=== PATIENT | male | born 2000 | race Two or more races ===

== ENCOUNTER 2021-06-19 07:00 | Day surgery (SDC) | payer MEDICAID, OTHER ==
[~2021-06-19 07:00] MED LIST: ACET650S26 GT; ALBU2.5V38 IH; BACL20TA GT; BISA10SU11 RC; BUDE1AMP IH; CHOL100062 GT; CLON0.2T GT; CLON0.3P TD; CLON0.3T GT; CLON1PAT7 TD; DIAZ2TAB GT; ERYT200S16 GT; GABA-532 GT; GLYC0.2V GT; LORA-259 GT; POLY15DR40 EACHEYE; POLY17PO4 GT; PROP10TA10 GT; SIME80TA15 GT; [UNRECOGNIZED DRUG - CODE] GT
[2021-06-19] MEDS ORDERED: FENTANYL PF 100MCG/2ML AMPUL ONE (12:34)
[2021-06-19] MEDS ORDERED: MIDAZOLAM HCL 2 MG/2ML VIAL ONE (12:35)
== END 2021-06-19 18:00 | disposition still patient (30) ==
LOC: DS 07:00
PROVIDERS: ATTEND Surgery
DX: L91.0 Hypertrophic scar (principal); I10 Essential (primary) hypertension; K21.9 Gastro-esophageal reflux disease without esophagitis
CPT/HCPCS: 11442; A4623; A7526; J0690; J2250; J3010; J7030

== ENCOUNTER 2023-04-28 | Inpatient (IN) | payer OTHER ==
[~2023-04-28] VITALS: Ht 134.6 cm; Wt 39.9 kg
[2023-04-29] VITALS (10 sets, daily range): BP systolic 133–139; BP diastolic 80–95; TEMP 98.7–99; O2SAT 96–100
[2023-04-29] MEDS ORDERED: LANOLIN/MIN OIL/PETROLAT,WHT 3.5 GM TUBE EACHEYE SCH (08:11)
[2023-04-29] MEDS ORDERED: TUBERCULIN,PURIF.PROT.DERIV. 5 TU/0.1 ML DISP.SYRIN ID SCH (08:11)
[2023-04-29] MEDS ORDERED: ALBUTEROL FS 2.5 MG/3 ML VIAL.NEB NEB PRN (09:00)
[2023-04-29] MEDS ORDERED: VANCOMYCIN HCL 0.75 GM in IV D5W 250 ML IV SCH ×2 (09:00→13:00)
[2023-04-29] MEDS ORDERED: GUAIFENESIN 300 MG/15 ML UDC GT PRN (09:00)
[2023-04-29] MEDS: MEROPENEM 1 G in IV NS 0.9% 100 ML IV SCH ×2 (09:00→21:00)
[2023-04-29] MEDS ORDERED: DIAZEPAM 2 MG TABLET GT SCH (09:00)
[2023-04-29] MEDS ORDERED: HYDROGEN PEROXIDE 480 ML BOTTLE TP PRN (09:00)
[2023-04-29] MEDS ORDERED: Z GUARD REMEDY 4 OZ OINT TP PRN (09:00)
[2023-04-29] MEDS ORDERED: IPRATROPIUM NEB FS 0.5 MG/2.5 ML AMPUL.NEB NEB PRN (09:00)
[2023-04-29] MEDS ORDERED: GLYCOPYRROLATE 1 MG TABLET GT SCH (09:00)
[2023-04-29] MEDS: HYDROGEN PEROXIDE 480 ML BOTTLE TP SCH (09:44)
[2023-04-29] MEDS: LANOLIN/MIN OIL/PETROLAT,WHT 3.5 GM TUBE EACHEYE SCH (09:51)
[2023-04-29] MEDS: TAMSULOSIN 0.4 MG CAP.SR.24H GT SCH (09:51)
[2023-04-29] MEDS: PROPRANOLOL HCL 10 MG TABLET GT SCH (09:52)
[2023-04-29] MEDS: ARGININE/GLUTAMINE/CALCIUM BMB 1 EACH POWD.PACK GT SCH (09:53)
[2023-04-29] MEDS: ACIDOPHILUS/BULGARICUS 1 EACH TAB.CHEW GT SCH (09:53)
[2023-04-29] MEDS: CLONIDINE 0.3 MG GT SCH (09:53)
[2023-04-29] MEDS: HYDROCODONE/APAP 5/325MG TABLET GT SCH (09:54)
[2023-04-29] MEDS: CHOLECALCIFEROL 1,000 UNIT TABLET (VIT D3) GT SCH (09:54)
[2023-04-29] MEDS: PROSOURCE / PROSTAT (PYXIS) 30 ML UDC GT SCH (09:54)
[2023-04-29] MEDS: MULTIVIT W/MINERALS 1 TAB TABLET GT SCH (09:54)
[2023-04-29] MEDS: ASCORBIC ACID 500 MG TABLET GT SCH (09:54)
[2023-04-29] MEDS: NYSTATIN TOP POWDER 15 GM BOTTLE TP SCH ×2 (09:54→09:55)
[2023-04-29] MEDS: Z GUARD REMEDY 4 OZ OINT TP SCH ×2 (09:55)
[2023-04-29] MEDS: VITS A AND D/WHITE PET/LANOLIN 5 GM PACKET TP SCH (09:55)
[2023-04-29] MEDS: GABAPENTIN GT SCH (12:00)
[2023-04-29] MEDS: GLYCOPYRROLATE 1 MG TABLET GT SCH (12:00)
[2023-04-29] MEDS: BACLOFEN 20 MG GT SCH (12:00)
[2023-04-29] MEDS: DIAZEPAM 2 MG TABLET GT SCH (12:00)
[2023-04-29] MEDS: SIMETHICONE SUSP 40 MG/0.6 ML BOTTLE GT SCH (12:00)
[2023-04-29] MEDS: ALBUTEROL FS 2.5 MG/3 ML VIAL.NEB NEB SCH (12:47)
[2023-04-29] MEDS: IPRATROPIUM NEB FS 0.5 MG/2.5 ML AMPUL.NEB NEB SCH (12:47)
[2023-04-29] MEDS: ERYTHROMYCIN ETHYLSUCCINATE 200 MG/5 ML SUSPENSION GT SCH (13:06)
[2023-04-29] MEDS: BENEFIBER 4 GM 1 EA PACKET GT SCH (13:06)
[2023-04-29] MEDS: VANCOMYCIN HCL 0.75 GM in IV D5W 250 ML IV SCH (13:41)
[2023-04-29] MEDS: VITAL AF 1.2 1,000 ML BOTTLE GT PRN (18:56)
[2023-04-29] MEDS: CLONIDINE 0.2 MG GT SCH (21:20)
[2023-04-29] MEDS: ZINC SULFATE 220 MG CAPSULE GT SCH (21:21)
[2023-04-30] VITALS (14 sets, daily range): BP systolic 133–152; BP diastolic 89–90; TEMP 98.2–98.3; O2SAT 95–99
[2023-04-30 08:18] LABS: CALCIUM, SERUM 9.9 mg/dL (8.5-10.1); CREATININE 0.3 mg/dL (0.6-1.3); POTASSIUM 4.2 mmol/L (3.5-5.1)
[2023-04-30] MEDS: LORAZEPAM 1 MG TABLET GT PRN (10:36)
[2023-05-01] VITALS (15 sets, daily range): BP systolic 141; BP diastolic 92; TEMP 98.6–99.3; O2SAT 93–99
[2023-05-01 08:52] LABS: CALCIUM, SERUM 9.9 mg/dL (8.5-10.1); CREATININE 0.3 mg/dL (0.6-1.3)
[2023-05-01] MEDS: CLOTRIMAZOLE 1% 15 GM TUBE TP SCH (21:11)
[2023-05-02] VITALS (11 sets, daily range): BP systolic 130; BP diastolic 82; TEMP 99; O2SAT 96–99
[2023-05-02 07:32] LABS: CALCIUM, SERUM 9.8 mg/dL (8.5-10.1); CREATININE 0.2 mg/dL (0.6-1.3); POTASSIUM 4.5 mmol/L (3.5-5.1)
[2023-05-03] VITALS (13 sets, daily range): BP systolic 128–139; BP diastolic 72–90; TEMP 98.6–98.8; O2SAT 94–98
[2023-05-03 08:06] LABS: CALCIUM, SERUM 9.2 mg/dL (8.5-10.1); CREATININE 0.3 mg/dL (0.6-1.3); POTASSIUM 3.9 mmol/L (3.5-5.1)
[2023-05-03] MEDS: ACETAMINOPHEN 650 MG/20 ML UDC- SA PATIENTS-PAIN ONLY GT PRN (17:18)
[2023-05-04] VITALS (11 sets, daily range): BP systolic 124; BP diastolic 84; TEMP 97.7; O2SAT 96–99
[2023-05-04 08:07] LABS: CALCIUM, SERUM 9.1 mg/dL (8.5-10.1); CREATININE 0.3 mg/dL (0.6-1.3); POTASSIUM 3.9 mmol/L (3.5-5.1)
[2023-05-05] VITALS (14 sets, daily range): BP systolic 131–140; BP diastolic 72–99; TEMP 98.1–98.2; O2SAT 95–100
[2023-05-05 07:23] LABS: CREATININE 0.2 mg/dL (0.6-1.3); POTASSIUM 3.9 mmol/L (3.5-5.1)
[2023-05-05] MEDS: POLYETHYLENE GLYCOL 3350 17 GM POWD.PACK GT PRN (17:54)
[2023-05-06] VITALS (13 sets, daily range): BP systolic 131–139; BP diastolic 89–91; TEMP 98.4–99.3; O2SAT 96–100
[2023-05-06] MEDS: BISACODYL SUPP (10 MG) 10 MG/SUPP.RECT SUPP.RECT RC PRN (16:52)
[2023-05-07] VITALS (15 sets, daily range): BP systolic 125–139; BP diastolic 80–90; TEMP 99–99.1; O2SAT 94–99
[2023-05-07 11:13] LABS: CALCIUM, SERUM 9.3 mg/dL (8.5-10.1); CREATININE 0.3 mg/dL (0.6-1.3)
[2023-05-08] VITALS (15 sets, daily range): BP systolic 113–137; BP diastolic 73–93; TEMP 97.5–97.7; O2SAT 94–98
[2023-05-08 12:37] LABS: CREATININE 0.3 mg/dL (0.6-1.3); POTASSIUM 3.9 mmol/L (3.5-5.1)
[2023-05-08] MEDS: HYDROCORTISONE 1% CREAM 28.35 GM TUBE TP SCH (21:24)
[2023-05-09] VITALS (14 sets, daily range): BP systolic 111–119; BP diastolic 74–83; TEMP 97.5–98.1; O2SAT 95–97
[2023-05-09 08:14] LABS: CALCIUM, SERUM 9.3 mg/dL (8.5-10.1); CREATININE 0.2 mg/dL (0.6-1.3); POTASSIUM 3.8 mmol/L (3.5-5.1)
[2023-05-09] MEDS: HYDROCORTISONE 1% CREAM 28.35 GM TUBE TP SCH (21:22)
[2023-05-10] VITALS (14 sets, daily range): BP systolic 120–150; BP diastolic 70–96; TEMP 97.9–99.3; O2SAT 92–100
[2023-05-10 07:22] LABS: CALCIUM, SERUM 9.4 mg/dL (8.5-10.1); CREATININE 0.2 mg/dL (0.6-1.3); POTASSIUM 4.3 mmol/L (3.5-5.1)
[2023-05-11] VITALS (15 sets, daily range): BP systolic 110–139; BP diastolic 78–104; TEMP 98.4–98.8; O2SAT 94–100
[2023-05-11 07:33] LABS: CREATININE 0.3 mg/dL (0.6-1.3); POTASSIUM 4.3 mmol/L (3.5-5.1)
[2023-05-12] VITALS (13 sets, daily range): BP systolic 137–139; BP diastolic 94–104; TEMP 97.9–98.4; O2SAT 96–100
[2023-05-12 08:46] LABS: CALCIUM, SERUM 10.1 mg/dL (8.5-10.1); CREATININE 0.2 mg/dL (0.6-1.3); POTASSIUM 4.2 mmol/L (3.5-5.1)
[2023-05-13] VITALS (13 sets, daily range): BP systolic 121–130; BP diastolic 77–79; TEMP 97.9–98.2; O2SAT 96–99
[2023-05-13 08:10] LABS: CALCIUM, SERUM 9.6 mg/dL (8.5-10.1); CREATININE 0.3 mg/dL (0.6-1.3); POTASSIUM 4.1 mmol/L (3.5-5.1)
[2023-05-14] VITALS (11 sets, daily range): BP systolic 105–136; BP diastolic 87–93; TEMP 98.8–99; O2SAT 94–100
[2023-05-15] VITALS (14 sets, daily range): BP systolic 142–161; BP diastolic 91–99; TEMP 98.1–102.4; O2SAT 94–100
[2023-05-15] MEDS: ACETAMINOPHEN 650 MG/20 ML UDC- SA PATIENTS-FEVER ONLY GT PRN (20:02)
[2023-05-15 20:55] LABS: BASOPHILS # (AUTO) 0.1 K/uL (0.0-0.2); BASOPHILS % (AUTO) 0.8 % (0.0-2.0); EOSINOPHILS # (AUTO) 0.5 K/uL (0.0-0.7); EOSINOPHILS % (AUTO) 6.9 % (0.0-6.0); HEMATOCRIT 43 % (39-51); HEMOGLOBIN 14.3 g/dL (13.5-17.5); LYMPHOCYTES # (AUTO) 1.7 K/uL (0.8-4.8); LYMPHOCYTES % (AUTO) 23.1 % (20.0-44.0); MEAN CORPUSCULAR HEMOGLOBIN 29 PG (26.0-33.0); MEAN CORPUSCULAR HGB CONC 33 g/dl (31.0-36.0); MEAN CORPUSCULAR VOLUME 86 fL (80-96); MONOCYTES # (AUTO) 0.8 K/uL (0.1-1.30); MONOCYTES % (AUTO) 10.9 % (2.0-12.0); NEUTROPHILS # (AUTO) 4.3 K/uL (1.8-8.9); NEUTROPHILS % (AUTO) 58.3 % (43.0-81.0); PLATELET COUNT (AUTO) 512 K/uL (150-450); RED CELL DISTRIBUTION WIDTH 15.1 % (11.5-15.0); WHITE BLOOD COUNT (AUTO) 7.3 K/uL (4.3-11.0)
[2023-05-15 21:07] LABS: CALCIUM, SERUM 10.2 mg/dL (8.5-10.1); CREATININE 0.3 mg/dL (0.6-1.3)
[2023-05-15 21:15] LABS: LACTIC ACID 0.8 mmol/L (0.4-2.0)
[2023-05-16] VITALS (14 sets, daily range): BP systolic 127–140; BP diastolic 71–97; TEMP 98.4–101.5; O2SAT 94–99
[2023-05-17] VITALS (14 sets, daily range): BP systolic 125–136; BP diastolic 88; TEMP 98.1–98.4; O2SAT 96–100
[2023-05-18] VITALS (11 sets, daily range): BP systolic 100–133; BP diastolic 64–87; TEMP 98.4–99.9; O2SAT 97–100
[2023-05-19] VITALS (13 sets, daily range): BP systolic 131–139; BP diastolic 89–92; TEMP 98–98.1; O2SAT 96–100
[2023-05-20] VITALS (13 sets, daily range): BP systolic 123–133; BP diastolic 88–95; TEMP 98.1–99.3; O2SAT 92–99
[2023-05-20] MEDS: METOCLOPRAMIDE HCL 10 MG TABLET GT PRN (14:21)
[2023-05-21] VITALS (12 sets, daily range): BP systolic 112–132; BP diastolic 74–94; TEMP 98.3–99; O2SAT 96–100
[2023-05-22] VITALS (14 sets, daily range): BP systolic 123–136; BP diastolic 88–92; TEMP 99.3–99.7; O2SAT 93–99
[2023-05-22] MEDS: HYDROCODONE/APAP 5/325MG TABLET GT PRN (01:41)
[2023-05-22 09:13] LABS: BASOPHILS % (AUTO) 0.8 % (0.0-2.0); EOSINOPHILS # (AUTO) 0.3 K/uL (0.0-0.7); EOSINOPHILS % (AUTO) 4.5 % (0.0-6.0); HEMATOCRIT 42 % (39-51); HEMOGLOBIN 13.5 g/dL (13.5-17.5); MEAN CORPUSCULAR HEMOGLOBIN 28 PG (26.0-33.0); MEAN CORPUSCULAR HGB CONC 32 g/dl (31.0-36.0); MEAN CORPUSCULAR VOLUME 87 fL (80-96); MONOCYTES # (AUTO) 0.6 K/uL (0.1-1.30); MONOCYTES % (AUTO) 9.3 % (2.0-12.0); NEUTROPHILS # (AUTO) 3.3 K/uL (1.8-8.9); NEUTROPHILS % (AUTO) 53.4 % (43.0-81.0); PLATELET COUNT (AUTO) 405 K/uL (150-450); RED CELL DISTRIBUTION WIDTH 15.5 % (11.5-15.0); WHITE BLOOD COUNT (AUTO) 6.1 K/uL (4.3-11.0)
[2023-05-22 09:14] LABS: APPEARANCE,URINE CLOUDY (CLEAR); BILIRUBIN,URINE NEGATIVE (NEGATIVE); BLOOD, URINE 3+ Ery/uL (NEGATIVE); COLOR,URINE YELLOW (YELLOW); KETONES,URINE NEGATIVE (NEGATIVE); LEUKOCYTE ESTERASE ,URINE 3+ (NEGATIVE); NITRITE, URINE NEGATIVE (NEGATIVE); PH,URINE 7.5 (5.0-8.0); PROTEIN,URINE 1+ mg/dl (NEGATIVE); UGLUCOSE NEGATIVE (NEGATIVE)
[2023-05-22 09:25] LABS: CREATININE 0.3 mg/dL (0.6-1.3); POTASSIUM 3.7 mmol/L (3.5-5.1)
[2023-05-22 09:31] LABS: ADD URINE CULTURE YES; BACTERIA,URINE 1+ /HPF (None Seen); WBC,URINE 51-80 /HPF (0-3)
[2023-05-22 09:32] LABS: CALCIUM OXALATE CRYSTALS,UR Few /HPF (None Seen); SQUAMOUS EPITHELIAL CELL,UR Few /HPF (None Seen); YEAST,URINE Few /HPF (None Seen)
[2023-05-22] MEDS: MEROPENEM 500 MG in IV NS 0.9% 50 ML IV SCH (17:00)
[2023-05-22] MEDS: VANCOMYCIN HCL 0.75 GM in IV D5W 250 ML IV SCH (17:50)
[2023-05-23] VITALS (15 sets, daily range): BP systolic 117–127; BP diastolic 67–97; TEMP 98.2–101.8; O2SAT 93–98
[2023-05-23 11:24] LABS: CALCIUM, SERUM 9.1 mg/dL (8.5-10.1); CREATININE 0.4 mg/dL (0.6-1.3)
[2023-05-24] VITALS (13 sets, daily range): BP systolic 94; BP diastolic 63; TEMP 97.9–98.9; O2SAT 94–100
[2023-05-24 07:25] LABS: CREATININE 0.3 mg/dL (0.6-1.3); POTASSIUM 3.3 mmol/L (3.5-5.1)
[2023-05-24] MEDS: POTASSIUM CHLORIDE 20 MEQ POWDER PACKET GT ONE (11:00)
[2023-05-25] VITALS (13 sets, daily range): BP systolic 130–139; BP diastolic 75–93; TEMP 97.9–100.4; O2SAT 95–100
[2023-05-25 07:37] LABS: CALCIUM, SERUM 9.1 mg/dL (8.5-10.1); CREATININE 0.3 mg/dL (0.6-1.3); POTASSIUM 3.9 mmol/L (3.5-5.1)
[2023-05-25] MEDS ORDERED: DIATR MEGLU/DIATRIZOATE SODIUM 30 ML BOTTLE (GASTROGRAPHIN) ONE ×2 (11:39→23:38)
[2023-05-26] VITALS (13 sets, daily range): BP systolic 124–136; BP diastolic 66–95; TEMP 98.8–99.1; O2SAT 95–100
[2023-05-26 08:29] LABS: CALCIUM, SERUM 9.2 mg/dL (8.5-10.1); CREATININE 0.4 mg/dL (0.6-1.3); POTASSIUM 3.8 mmol/L (3.5-5.1)
[2023-05-27] VITALS (13 sets, daily range): BP systolic 142; BP diastolic 90; TEMP 98; O2SAT 95–100
[2023-05-27 09:02] LABS: CALCIUM, SERUM 9.3 mg/dL (8.5-10.1); CREATININE 0.3 mg/dL (0.6-1.3); POTASSIUM 3.8 mmol/L (3.5-5.1)
[2023-05-28] VITALS (13 sets, daily range): BP systolic 109–128; BP diastolic 77–79; TEMP 98.1–99.9; O2SAT 97–100
[2023-05-28 08:17] LABS: CALCIUM, SERUM 9.3 mg/dL (8.5-10.1); CREATININE 0.3 mg/dL (0.6-1.3); POTASSIUM 3.5 mmol/L (3.5-5.1)
[2023-05-29] VITALS (13 sets, daily range): BP systolic 116–147; BP diastolic 78–87; TEMP 98.4–98.6; O2SAT 95–100
[2023-05-30] VITALS (14 sets, daily range): BP systolic 114–122; BP diastolic 87–111; TEMP 98.6–98.8; O2SAT 92–98
[2023-05-31] VITALS (13 sets, daily range): BP systolic 95–128; BP diastolic 78–97; TEMP 99–99.6; O2SAT 93–97
[2023-06-01] VITALS (11 sets, daily range): BP systolic 145–156; BP diastolic 95–99; TEMP 98.7–99.8; O2SAT 96–100
[2023-06-02] VITALS (12 sets, daily range): BP systolic 102–132; BP diastolic 71–94; TEMP 98.5–99; O2SAT 96–99
[2023-06-02 20:12] LABS: BASOPHILS # (AUTO) 0.1 K/uL (0.0-0.2); BASOPHILS % (AUTO) 1.2 % (0.0-2.0); EOSINOPHILS # (AUTO) 0.6 K/uL (0.0-0.7); EOSINOPHILS % (AUTO) 9.9 % (0.0-6.0); HEMATOCRIT 40 % (39-51); HEMOGLOBIN 13.3 g/dL (13.5-17.5); LYMPHOCYTES # (AUTO) 1.7 K/uL (0.8-4.8); LYMPHOCYTES % (AUTO) 28.6 % (20.0-44.0); MEAN CORPUSCULAR HEMOGLOBIN 29 PG (26.0-33.0); MEAN CORPUSCULAR HGB CONC 33 g/dl (31.0-36.0); MEAN CORPUSCULAR VOLUME 87 fL (80-96); MONOCYTES # (AUTO) 0.7 K/uL (0.1-1.30); MONOCYTES % (AUTO) 11.7 % (2.0-12.0); NEUTROPHILS # (AUTO) 2.8 K/uL (1.8-8.9); NEUTROPHILS % (AUTO) 48.6 % (43.0-81.0); PLATELET COUNT (AUTO) 283 K/uL (150-450); RED BLOOD CELL COUNT(AUTO) 4.55 MIL/uL (4.5-6.0); RED CELL DISTRIBUTION WIDTH 16.9 % (11.5-15.0); WHITE BLOOD COUNT (AUTO) 5.8 K/uL (4.3-11.0)
[2023-06-02 21:09] LABS: ALBUMIN 3.3 g/dL (3.4-5.0); BILIRUBIN,TOTAL 0.4 mg/dL (0.2-1.0); CALCIUM, SERUM 9.5 mg/dL (8.5-10.1); CREATININE 0.4 mg/dL (0.6-1.3); POTASSIUM 3.8 mmol/L (3.5-5.1)
[2023-06-03] VITALS (12 sets, daily range): BP systolic 98–123; BP diastolic 76–77; TEMP 97.7–99.6; O2SAT 96–100
[2023-06-03 07:38] LABS: APPEARANCE,URINE TURBID (CLEAR); BILIRUBIN,URINE NEGATIVE (NEGATIVE); BLOOD, URINE 3+ Ery/uL (NEGATIVE); COLOR,URINE DARK YELLOW (YELLOW); KETONES,URINE NEGATIVE (NEGATIVE); LEUKOCYTE ESTERASE ,URINE 2+ (NEGATIVE); NITRITE, URINE NEGATIVE (NEGATIVE); PH,URINE 6.5 (5.0-8.0); PROTEIN,URINE 1+ mg/dl (NEGATIVE); UGLUCOSE NEGATIVE (NEGATIVE)
[2023-06-03 07:45] LABS: ADD URINE CULTURE YES; BACTERIA,URINE Moderate /HPF (None Seen); RBC,URINE 21-50 /HPF (0-2); SQUAMOUS EPITHELIAL CELL,UR Few /HPF (None Seen)
[2023-06-03 07:46] LABS: WBC,URINE 21-50 /HPF (0-3)
[2023-06-03] MEDS: LEVOFLOXACIN (250MG) 250 MG TABLET PO SCH (15:00)
[2023-06-04] VITALS (14 sets, daily range): BP systolic 116–134; BP diastolic 93–95; TEMP 98.2–98.6; O2SAT 93–100
[2023-06-04] MEDS ORDERED: LEVOFLOXACIN (250MG) 250 MG TABLET GT SCH (18:46)
[2023-06-05] VITALS (12 sets, daily range): BP systolic 122–148; BP diastolic 83–88; TEMP 98.8–99.5; O2SAT 94–99
[2023-06-05] MEDS: LEVOFLOXACIN (250MG) 250 MG TABLET GT SCH (15:14)
[2023-06-06] VITALS (13 sets, daily range): BP systolic 125–131; BP diastolic 81–89; TEMP 98.1–98.4; O2SAT 96–98
[2023-06-07] VITALS (12 sets, daily range): BP systolic 108; BP diastolic 81; TEMP 98.1; O2SAT 95–98
[2023-06-08] VITALS (12 sets, daily range): BP systolic 125; BP diastolic 86; TEMP 98.4; O2SAT 92–98
[2023-06-09] VITALS (13 sets, daily range): BP systolic 115–131; BP diastolic 81–96; TEMP 98.1–98.9; O2SAT 95–98
[2023-06-10] VITALS (12 sets, daily range): BP systolic 144; BP diastolic 97; TEMP 99.5; O2SAT 94–98
[2023-06-10] MEDS: ERYTHROMYCIN ETHYLSUCCINATE 200 MG/5 ML SUSPENSION GT SCH (20:09)
[2023-06-11] VITALS (11 sets, daily range): BP systolic 136; BP diastolic 88; TEMP 98.4; O2SAT 93–100
[2023-06-11] MEDS: BACI/NEOM/POLY B OINT PKT 1 UDPKT PACKET TP SCH (21:44)
[2023-06-12] VITALS (14 sets, daily range): BP systolic 103–113; BP diastolic 81–87; TEMP 96.8–98.8; O2SAT 94–100
[2023-06-13] VITALS (12 sets, daily range): BP systolic 112–127; BP diastolic 79–82; TEMP 99.7; O2SAT 93–98
[2023-06-14] VITALS (13 sets, daily range): BP systolic 131–141; BP diastolic 82–95; TEMP 99–99.1; O2SAT 93–96
[2023-06-15] VITALS (14 sets, daily range): BP systolic 138–143; BP diastolic 81–89; TEMP 97.8–98; O2SAT 93–99
[2023-06-16] VITALS (14 sets, daily range): BP systolic 127–143; BP diastolic 86–94; TEMP 98.1–99.1; O2SAT 93–100
[2023-06-17] VITALS (12 sets, daily range): BP systolic 107; BP diastolic 82; TEMP 98.1; O2SAT 96–98
[2023-06-18] VITALS (13 sets, daily range): BP systolic 106–144; BP diastolic 74–92; TEMP 97.7–99.1; O2SAT 92–99
[2023-06-19] VITALS (12 sets, daily range): BP systolic 119; BP diastolic 86; TEMP 99.1; O2SAT 93–100
[2023-06-20] VITALS (14 sets, daily range): BP systolic 99–106; BP diastolic 83–88; TEMP 98.4–99.7; O2SAT 96–99
[2023-06-21] VITALS (13 sets, daily range): BP systolic 130–139; BP diastolic 88–93; TEMP 99.3–100.4; O2SAT 95–100
[2023-06-22] VITALS (12 sets, daily range): BP systolic 108–123; BP diastolic 97–99; TEMP 98.1–99.1; O2SAT 93–99
[2023-06-23] VITALS (11 sets, daily range): BP systolic 129–137; BP diastolic 68–90; TEMP 98–99.3; O2SAT 94–99
[2023-06-24] VITALS (14 sets, daily range): BP systolic 107–132; BP diastolic 67–72; TEMP 98–98.6; O2SAT 92–100
[2023-06-25] VITALS (13 sets, daily range): BP systolic 131–134; BP diastolic 81–90; TEMP 98–99; O2SAT 95–100
[2023-06-26] VITALS (13 sets, daily range): BP systolic 113–129; BP diastolic 81–97; TEMP 97.7; O2SAT 94–99
[2023-06-27] VITALS (13 sets, daily range): BP systolic 126–142; BP diastolic 88–100; TEMP 98.2–99; O2SAT 96–99
[2023-06-28] VITALS (10 sets, daily range): BP systolic 112–124; BP diastolic 70–74; TEMP 97.9–99; O2SAT 96–99
[2023-06-28 15:43] LABS: BASOPHILS % (AUTO) 0.6 % (0.0-2.0); EOSINOPHILS # (AUTO) 0.3 K/uL (0.0-0.7); EOSINOPHILS % (AUTO) 4.6 % (0.0-6.0); HEMATOCRIT 40 % (39-51); HEMOGLOBIN 13.3 g/dL (13.5-17.5); LYMPHOCYTES # (AUTO) 0.9 K/uL (0.8-4.8); MEAN CORPUSCULAR HEMOGLOBIN 30 PG (26.0-33.0); MEAN CORPUSCULAR HGB CONC 33 g/dl (31.0-36.0); MEAN CORPUSCULAR VOLUME 90 fL (80-96); MONOCYTES # (AUTO) 0.4 K/uL (0.1-1.30); MONOCYTES % (AUTO) 5.8 % (2.0-12.0); NEUTROPHILS # (AUTO) 4.8 K/uL (1.8-8.9); PLATELET COUNT (AUTO) 346 K/uL (150-450); RED BLOOD CELL COUNT(AUTO) 4.51 MIL/uL (4.5-6.0); WHITE BLOOD COUNT (AUTO) 6.4 K/uL (4.3-11.0)
[2023-06-28 15:52] LABS: CALCIUM, SERUM 9.5 mg/dL (8.5-10.1); CREATININE 0.3 mg/dL (0.6-1.3); POTASSIUM 3.8 mmol/L (3.5-5.1)
[2023-06-28] MEDS: IV 1/2NS 1000 ML 1,000 ML IV PRN (18:50)
[2023-06-28 20:12] LABS: APPEARANCE,URINE CLOUDY (CLEAR); BILIRUBIN,URINE NEGATIVE (NEGATIVE); BLOOD, URINE 3+ Ery/uL (NEGATIVE); COLOR,URINE YELLOW (YELLOW); KETONES,URINE NEGATIVE (NEGATIVE); LEUKOCYTE ESTERASE ,URINE 1+ (NEGATIVE); NITRITE, URINE NEGATIVE (NEGATIVE); PH,URINE 7.5 (5.0-8.0); PROTEIN,URINE NEGATIVE (NEGATIVE); UGLUCOSE NEGATIVE (NEGATIVE)
[2023-06-28 21:03] LABS: ADD URINE CULTURE YES; BACTERIA,URINE 1+ /HPF (None Seen); RBC,URINE 51-80 /HPF (0-2); SQUAMOUS EPITHELIAL CELL,UR 0-2 /HPF (None Seen); URINE AMORPHOUS PHOSPHATES Many /HPF (None Seen)
[2023-06-28 21:04] LABS: YEAST,URINE Few /HPF (None Seen)
[2023-06-29] VITALS (10 sets, daily range): BP systolic 138; BP diastolic 94; TEMP 99; O2SAT 93–98
[2023-06-30] VITALS (11 sets, daily range): BP systolic 124; BP diastolic 98; TEMP 99.6; O2SAT 95–98
[2023-07-01] VITALS (15 sets, daily range): BP systolic 122–132; BP diastolic 82–85; TEMP 98.2–98.4; O2SAT 90–98
[2023-07-01] MEDS: METOCLOPRAMIDE HCL 10 MG/2 ML VIAL IV SCH (15:00)
[2023-07-02] VITALS (14 sets, daily range): BP systolic 110–129; BP diastolic 82–89; TEMP 97.8–99.9; O2SAT 94–100
[2023-07-02] MEDS: LORAZEPAM 1 MG TABLET GT PRN (18:34)
[2023-07-03] VITALS (13 sets, daily range): BP systolic 110–136; BP diastolic 81–88; TEMP 97.7–98.4; O2SAT 95–98
[2023-07-04] VITALS (12 sets, daily range): BP systolic 127–137; BP diastolic 69–97; TEMP 99.5; O2SAT 94–98
[2023-07-05] VITALS (14 sets, daily range): BP systolic 118–156; BP diastolic 87–96; TEMP 97.9–101.3; O2SAT 93–98
[2023-07-06] VITALS (12 sets, daily range): BP systolic 113–130; BP diastolic 75–90; TEMP 98.1–99.7; O2SAT 94–97
[2023-07-07] VITALS (11 sets, daily range): BP systolic 106–120; BP diastolic 74–86; TEMP 97.9–99.5; O2SAT 94–99
[2023-07-08] VITALS (13 sets, daily range): BP systolic 107–114; BP diastolic 75–88; TEMP 96.3–97.9; O2SAT 94–98
[2023-07-09] VITALS (12 sets, daily range): BP systolic 117–123; BP diastolic 94–96; TEMP 99–102.7; O2SAT 94–99
[2023-07-10] VITALS (12 sets, daily range): BP systolic 149–157; BP diastolic 89–99; TEMP 98.1–100.6; O2SAT 94–100
[2023-07-11] VITALS (13 sets, daily range): BP systolic 126; BP diastolic 85–92; TEMP 98.2–101.3; O2SAT 96–98
[2023-07-12] VITALS (14 sets, daily range): BP systolic 111–116; BP diastolic 70–82; TEMP 98.6–100.1; O2SAT 95–98
[2023-07-12] MEDS: METOCLOPRAMIDE HCL 10 MG TABLET GT SCH (04:40)
[2023-07-12] MEDS: ACETAMINOPHEN 650 MG/20 ML UDC- SA PATIENTS-PAIN ONLY GT SCH (21:03)
[2023-07-13] VITALS (12 sets, daily range): BP systolic 130–150; BP diastolic 88–93; TEMP 98.1–99.1; O2SAT 94–97
[2023-07-14] VITALS (15 sets, daily range): BP systolic 114–159; BP diastolic 88–115; TEMP 99.3–100.2; O2SAT 95–100
[2023-07-15] VITALS (13 sets, daily range): BP systolic 118–128; BP diastolic 90–91; TEMP 98.1–98.8; O2SAT 94–100
[2023-07-16] VITALS (12 sets, daily range): BP systolic 113–120; BP diastolic 79–82; TEMP 98.1–98.6; O2SAT 93–99
[2023-07-17] VITALS (12 sets, daily range): BP systolic 118–135; BP diastolic 78–85; TEMP 98.4–99.9; O2SAT 92–100
[2023-07-18] VITALS (11 sets, daily range): BP systolic 120–126; BP diastolic 82–89; TEMP 99–99.7; O2SAT 94–98
[2023-07-19] VITALS (16 sets, daily range): BP systolic 118–129; BP diastolic 73–89; TEMP 98.2–99.5; O2SAT 92–98
[2023-07-20] VITALS (12 sets, daily range): BP systolic 107–136; BP diastolic 83–96; TEMP 97.5–99.1; O2SAT 93–98
[2023-07-21] VITALS (13 sets, daily range): BP systolic 106–135; BP diastolic 78–95; TEMP 98–99; O2SAT 94–98
[2023-07-22] VITALS (13 sets, daily range): BP systolic 104–132; BP diastolic 80–87; TEMP 98.7–99.3; O2SAT 95–99
[2023-07-23] VITALS (13 sets, daily range): BP systolic 127–132; BP diastolic 80–81; TEMP 98.4–99; O2SAT 95–100
[2023-07-24] VITALS (13 sets, daily range): BP systolic 117–139; BP diastolic 80–95; TEMP 97.9–99.1; O2SAT 94–97
[2023-07-25] VITALS (12 sets, daily range): BP systolic 137–147; BP diastolic 94–98; TEMP 99.3–101.3; O2SAT 93–98
[2023-07-26] VITALS (14 sets, daily range): BP systolic 116–122; BP diastolic 60–74; TEMP 98.3–99; O2SAT 93–97
[2023-07-27] VITALS (11 sets, daily range): BP systolic 123–132; BP diastolic 81; TEMP 98.6–99.1; O2SAT 93–99
[2023-07-28] VITALS (14 sets, daily range): BP systolic 129; BP diastolic 78; TEMP 98.1–98.8; O2SAT 94–99
[2023-07-29] VITALS (13 sets, daily range): BP systolic 108–133; BP diastolic 65–82; TEMP 98.6–100; O2SAT 95–100
[2023-07-29 11:54] LABS: BASOPHILS # (AUTO) 0.1 K/uL (0.0-0.2); BASOPHILS % (AUTO) 0.4 % (0.0-2.0); EOSINOPHILS # (AUTO) 0.2 K/uL (0.0-0.7); HEMATOCRIT 42 % (39-51); HEMOGLOBIN 13.9 g/dL (13.5-17.5); LYMPHOCYTES # (AUTO) 1.6 K/uL (0.8-4.8); LYMPHOCYTES % (AUTO) 13.9 % (20.0-44.0); MEAN CORPUSCULAR HEMOGLOBIN 31 PG (26.0-33.0); MEAN CORPUSCULAR HGB CONC 33 g/dl (31.0-36.0); MEAN CORPUSCULAR VOLUME 95 fL (80-96); MONOCYTES # (AUTO) 1.2 K/uL (0.1-1.30); NEUTROPHILS # (AUTO) 8.7 K/uL (1.8-8.9); NEUTROPHILS % (AUTO) 73.7 % (43.0-81.0); PLATELET COUNT (AUTO) 300 K/uL (150-450); RED BLOOD CELL COUNT(AUTO) 4.47 MIL/uL (4.5-6.0); RED CELL DISTRIBUTION WIDTH 15.6 % (11.5-15.0); WHITE BLOOD COUNT (AUTO) 11.8 K/uL (4.3-11.0)
[2023-07-29 12:00] LABS: CALCIUM, SERUM 9.2 mg/dL (8.5-10.1); CREATININE 0.4 mg/dL (0.6-1.3); POTASSIUM 3.8 mmol/L (3.5-5.1)
[2023-07-29 19:14] LABS: APPEARANCE,URINE CLEAR (CLEAR); BILIRUBIN,URINE NEGATIVE (NEGATIVE); BLOOD, URINE NEGATIVE Ery/uL (NEGATIVE); COLOR,URINE YELLOW (YELLOW); KETONES,URINE TRACE mg/dL (NEGATIVE); LEUKOCYTE ESTERASE ,URINE NEGATIVE (NEGATIVE); NITRITE, URINE NEGATIVE (NEGATIVE); PROTEIN,URINE NEGATIVE (NEGATIVE); UGLUCOSE NEGATIVE (NEGATIVE)
[2023-07-29] MEDS: MICAFUNGIN SODIUM 100 MG in IV NS 0.9% 100 ML IV SCH (21:00)
[2023-07-29] MEDS: CEFEPIME 1 GM in IV D5W 50 ML IV SCH (21:00)
[2023-07-29] MEDS: VANCOMYCIN 1 GM in IV D5W 250 ML IV SCH (23:26)
[2023-07-30] VITALS (16 sets, daily range): BP systolic 121–149; BP diastolic 82–84; TEMP 98.6–101.7; O2SAT 93–100
[2023-07-30] MEDS: VANCOMYCIN 1 GM in IV D5W 250 ML IV SCH ×2 (04:07→12:49)
[2023-07-30] MEDS ORDERED: FLUCONAZOLE (100 MG) 100 MG TABLET GT SCH (09:00)
[2023-07-30] MEDS: IV 1/2NS 1000 ML 1,000 ML IV PRN (12:51)
[2023-07-31] VITALS (15 sets, daily range): BP systolic 110–163; BP diastolic 71–90; TEMP 98–98.6; O2SAT 95–100
[2023-07-31 05:00] LABS: CALCIUM, SERUM 8.8 mg/dL (8.5-10.1); CREATININE 0.3 mg/dL (0.6-1.3); POTASSIUM 3.7 mmol/L (3.5-5.1)
[2023-08-01] VITALS (13 sets, daily range): BP systolic 109–146; BP diastolic 87–112; TEMP 98.1–98.2; O2SAT 96–100
[2023-08-01] MEDS: INDOMETHACIN 25 MG CAPSULE GT SCH (07:37)
[2023-08-02] VITALS (12 sets, daily range): BP systolic 130; BP diastolic 99; TEMP 97.9; O2SAT 96–99
[2023-08-03] VITALS (13 sets, daily range): BP systolic 111; BP diastolic 76; TEMP 98.6; O2SAT 95–99
[2023-08-04] VITALS (15 sets, daily range): BP systolic 143–150; BP diastolic 82–96; TEMP 98.4–99.1; O2SAT 94–100
[2023-08-05] VITALS (11 sets, daily range): BP systolic 110; BP diastolic 70; TEMP 98.6; O2SAT 95–98
[2023-08-06] VITALS (14 sets, daily range): BP systolic 124–143; BP diastolic 78–84; TEMP 98.1; O2SAT 94–99
[2023-08-07] VITALS (13 sets, daily range): BP systolic 135–138; BP diastolic 95–99; TEMP 98.6–99; O2SAT 93–98
[2023-08-08] VITALS (12 sets, daily range): BP systolic 158; BP diastolic 99; TEMP 98.2; O2SAT 93–97
[2023-08-09] VITALS (20 sets, daily range): BP systolic 122–135; BP diastolic 64–89; TEMP 98.7–102; O2SAT 94–100
[2023-08-09] MEDS: BACI/NEOM/POLY B OINT PKT 1 UDPKT PACKET TP SCH (20:40)
[2023-08-10] VITALS (12 sets, daily range): BP systolic 139–149; BP diastolic 82–95; TEMP 98.4; O2SAT 95–100
[2023-08-11] VITALS (15 sets, daily range): BP systolic 123; BP diastolic 77; TEMP 98.8; O2SAT 95–99
[2023-08-11] MEDS ORDERED: DIATR MEGLU/DIATRIZOATE SODIUM 30 ML BOTTLE (GASTROGRAPHIN) ONE (18:56)
[2023-08-12] VITALS (10 sets, daily range): BP systolic 122; BP diastolic 93; TEMP 98.9; O2SAT 95–99
[2023-08-12] MEDS: PROPRANOLOL HCL 10 MG TABLET GT SCH (09:00)
[2023-08-13] VITALS (13 sets, daily range): BP systolic 118–139; BP diastolic 73–85; TEMP 98.1–98.8; O2SAT 95–99
[2023-08-14] VITALS (14 sets, daily range): BP systolic 113–131; BP diastolic 78–92; TEMP 98.2–100; O2SAT 96–100
[2023-08-15] VITALS (13 sets, daily range): BP systolic 108–134; BP diastolic 75–92; TEMP 99.7–100.4; O2SAT 94–98
[2023-08-16] VITALS (14 sets, daily range): BP systolic 99–132; BP diastolic 76–97; TEMP 98.6–99.3; O2SAT 95–98
[2023-08-17] VITALS (13 sets, daily range): BP systolic 120–132; BP diastolic 91–92; TEMP 99–99.3; O2SAT 94–98
[2023-08-18 02:00] VITALS: O2SAT 97
[2023-08-18 02:29] VITALS: O2SAT 98
[2023-08-18 02:56] VITALS: O2SAT 98
[2023-08-18] MEDS ORDERED: GLYC2TAB21 GT (09:14)
[2023-08-18] MEDS ORDERED: TAMS-12 GT (09:14)
[2023-08-18] MEDS ORDERED: ARGI1POW17 GT (09:14)
[2023-08-18] MEDS ORDERED: ACID1TAB12 GT (09:14)
[2023-08-18] MEDS ORDERED: GABA250S2 GT (09:14)
[2023-08-18] MEDS ORDERED: ARTIFICIAL TEAR EACHEYE (09:14)
[2023-08-18] MEDS ORDERED: MULT-213 GT (09:14)
[2023-08-18] MEDS ORDERED: PROP20TA7 GT (09:14)
[2023-08-18] MEDS ORDERED: PETR113O TP (09:14)
[2023-08-18] MEDS ORDERED: AMIN30LI2 GT (09:14)
[2023-08-18] MEDS ORDERED: ACET-868 GT ×2 (09:14)
[2023-08-18] MEDS ORDERED: ZINC1CAP3 GT (09:14)
[2023-08-18] MEDS ORDERED: GUAR205P3 GT (09:14)
[2023-08-18] MEDS ORDERED: METO5TAB2 GT (09:14)
[2023-08-18] MEDS ORDERED: LORA-259 GT (09:14)
[2023-08-18] MEDS ORDERED: CHOL200059 GT (09:14)
[2023-08-18] MEDS ORDERED: NUT.237L65 GT (09:14)
[2023-08-18] MEDS ORDERED: GUAI100S11 GT (09:14)
[2023-08-18] MEDS ORDERED: HYDR-4303 GT (09:14)
[2023-08-18] MEDS ORDERED: ASCO500T10 GT (09:14)
[2023-08-18] MEDS ORDERED: IPRA0.2S49 IH ×2 (09:14)
[2023-08-18] MEDS ORDERED: INDO-12 GT (09:14)
[2023-08-18] MEDS ORDERED: HYDROGEN PEROXIDE TP (09:14)
[2024-04-18] MEDS ORDERED: TUBERCULIN,PURIF.PROT.DERIV. 5 TU/0.1 ML DISP.SYRIN ID SCH (09:00)
== END 2023-08-18 08:30 | disposition short-term general hospital (02) | DRG 133 ==
LOC: SA → UNDOADMIN → SA 05-24 22:01 → OBSER 08-18 03:30 → UNDOLOA 08-18 03:30 → SA 08-22 05:44
PROVIDERS: ADMIT Internal Medicine; ATTEND Internal Medicine
PROC: 05HY33Z Insertion of Infusion Device into Upper Vein, Percutaneous Approach (ICD-10-PCS; principal; 2023-05-01)
PROC: 05HY33Z Insertion of Infusion Device into Upper Vein, Percutaneous Approach (ICD-10-PCS; 2023-05-07)
PROC: 05HY33Z Insertion of Infusion Device into Upper Vein, Percutaneous Approach (ICD-10-PCS; 2023-05-23)
PROC: 05H933Z Insertion of Infusion Device into Right Brachial Vein, Percutaneous Approach (ICD-10-PCS; 2023-07-31)
DX: J96.10 Chronic respiratory failure, unspecified whether with hypoxia or hypercapnia (principal); G93.49 Other encephalopathy; A41.9 Sepsis, unspecified organism; L89.214 Pressure ulcer of right hip, stage 4; R53.2 Functional quadriplegia; G93.1 Anoxic brain damage, not elsewhere classified; F73 Profound intellectual disabilities; M41.40 Neuromuscular scoliosis, site unspecified; E88.09 Other disorders of plasma-protein metabolism, not elsewhere classified; G80.0 Spastic quadriplegic cerebral palsy; G40.909 Epilepsy, unspecified, not intractable, without status epilepticus; G90.1 Familial dysautonomia [Riley-Day]; I10 Essential (primary) hypertension; K21.9 Gastro-esophageal reflux disease without esophagitis; R13.10 Dysphagia, unspecified; Z93.0 Tracheostomy status; Z93.1 Gastrostomy status; Z20.822 Contact with and (suspected) exposure to COVID-19; Z79.51 Long term (current) use of inhaled steroids; Z79.899 Other long term (current) drug therapy; M62.50 Muscle wasting and atrophy, not elsewhere classified, unspecified site; L91.0 Hypertrophic scar; M62.422 Contracture of muscle, left upper arm; M62.421 Contracture of muscle, right upper arm; M62.462 Contracture of muscle, left lower leg; M62.461 Contracture of muscle, right lower leg; Z98.890 Other specified postprocedural states; N39.0 Urinary tract infection, site not specified; R64 Cachexia
CPT/HCPCS: 31720; 36410; 36415; 71045-TC; 74018; 80048-TC; 80053-TC; 80202-TC; 81001; 82962-TC; 83605-TC; 85025-TC; 87040-TC; 87086-TC; 93971-TC; 94003-TC; 94640-TC; 94760-TC; 94762-TC; 94799-TC; A4217; A4223; A4349; A4623; A6253; A7526; G0378; J0692; J2185; J2248; J3370; J3490; J7030; J7060; J8597; Q9963

== ENCOUNTER 2023-08-18 03:30 | Inpatient (IN) | payer OTHER ==
[2023-08-18] VITALS (10 sets, daily range): BP systolic 109–116; BP diastolic 76–93; TEMP 98.9–100.1; O2SAT 95–99
[~2023-08-18] VITALS: Ht 137.2 cm; Wt 39.9 kg
[2023-08-18 04:12] LABS: BASOPHILS # (AUTO) 0.2 K/uL (0.0-0.2); BASOPHILS % (AUTO) 1.8 % (0.0-2.0); EOSINOPHILS # (AUTO) 0.1 K/uL (0.0-0.7); EOSINOPHILS % (AUTO) 1.4 % (0.0-6.0); HEMATOCRIT 49 % (39-51); HEMOGLOBIN 16.6 g/dL (13.5-17.5); LYMPHOCYTES # (AUTO) 1.3 K/uL (0.8-4.8); LYMPHOCYTES % (AUTO) 13.1 % (20.0-44.0); MEAN CORPUSCULAR HEMOGLOBIN 33 PG (26.0-33.0); MEAN CORPUSCULAR HGB CONC 34 g/dl (31.0-36.0); MEAN CORPUSCULAR VOLUME 95 fL (80-96); MONOCYTES # (AUTO) 0.4 K/uL (0.1-1.30); MONOCYTES % (AUTO) 3.7 % (2.0-12.0); NEUTROPHILS # (AUTO) 7.6 K/uL (1.8-8.9); PLATELET COUNT (AUTO) 406 K/uL (150-450); RED BLOOD CELL COUNT(AUTO) 5.12 MIL/uL (4.5-6.0); RED CELL DISTRIBUTION WIDTH 13.7 % (11.5-15.0); WHITE BLOOD COUNT (AUTO) 9.5 K/uL (4.3-11.0)
[2023-08-18 04:13] LABS: APPEARANCE,URINE CLEAR (CLEAR); BILIRUBIN,URINE NEGATIVE (NEGATIVE); BLOOD, URINE 1+ Ery/uL (NEGATIVE); COLOR,URINE YELLOW (YELLOW); KETONES,URINE TRACE mg/dL (NEGATIVE); LEUKOCYTE ESTERASE ,URINE NEGATIVE (NEGATIVE); NITRITE, URINE NEGATIVE (NEGATIVE); PROTEIN,URINE 3+ mg/dl (NEGATIVE); UGLUCOSE NEGATIVE (NEGATIVE)
[2023-08-18] MEDS ORDERED: ACETAMINOPHEN 650 MG/SUPP.RECT RC ONE (04:14)
[2023-08-18] MEDS: ACETAMINOPHEN 650 MG/SUPP.RECT RC ONE (04:15)
[2023-08-18] MEDS: IV NS 0.9% 1,000 ML BAG IV ONE (04:15)
[2023-08-18] MEDS: PIPERACILLIN /TAZOBACTAM 3.375 G in IV D5W 50 ML IV ONE (04:18)
[2023-08-18] MEDS ORDERED: PIPERACI/TAZO 3.375GM/D5W 50ML PB IV ONE ×2 (04:18→04:39)
[2023-08-18 04:22] LABS: INR 1.14 (0.91-1.10); PARTIAL THROMBOPLASTIN TIME 27.4 SEC (24.3-34.3)
[2023-08-18 04:27] LABS: CALCIUM, SERUM 10.1 mg/dL (8.5-10.1); CARBON DIOXIDE 32 mmol/L (21-32); CHLORIDE 104 mmol/L (98-107); CREATININE 0.8 mg/dL (0.6-1.3); GLUCOSE 134 mg/dL (74-106); POTASSIUM 3.5 mmol/L (3.5-5.1); SODIUM SERUM 147 mmol/L (136-145); UREA NITROGEN, BLOOD 46 mg/dL (7-18)
[2023-08-18 04:35] LABS: LACTIC ACID 1.3 mmol/L (0.4-2.0)
[2023-08-18 04:41] LABS: ALANINE AMINOTRANSFERASE 58 U/L (12-78); ALBUMIN 4.4 g/dL (3.4-5.0); ALKALINE PHOSPHATASE 95 U/L (46-116); ASPARTATE AMINOTRANSFERASE 41 U/L (15-37); BILIRUBIN,DIRECT 0.2 mg/dL (0.0-0.2); BILIRUBIN,TOTAL 0.5 mg/dL (0.2-1.0); TOTAL PROTEIN, SERUM 10.3 g/dL (6.4-8.2)
[2023-08-18 06:00] LABS: ADD URINE CULTURE NO; BACTERIA,URINE 1+ /HPF (None Seen); MUCUS,URINE Moderate /LPF (None Seen); SQUAMOUS EPITHELIAL CELL,UR None Seen /HPF (None Seen); WBC,URINE 0-2 /HPF (0-3)
[2023-08-18] MEDS ORDERED: POLYVINYL ALCOHOL 15 ML BOTTLE EACHEYE PRN (07:00)
[2023-08-18] MEDS ORDERED: LORAZEPAM 1 MG TABLET GT PRN (07:00)
[2023-08-18] MEDS ORDERED: POLYETHYLENE GLYCOL 3350 17 GM POWD.PACK GT PRN (07:00)
[2023-08-18] MEDS ORDERED: Z GUARD REMEDY 4 OZ OINT TP PRN (07:00)
[2023-08-18] MEDS ORDERED: ONDANSETRON HCL/PF 4 MG/2 ML VIAL IVP PRN (07:00)
[2023-08-18] MEDS: BUDESONIDE RESPULE INH 0.5 MG/2 ML AMPUL.NEB IH SCH (09:00)
[2023-08-18] MEDS ORDERED: AMIN30LI2 GT (09:14)
[2023-08-18] MEDS ORDERED: PETR113O TP (09:14)
[2023-08-18] MEDS ORDERED: GLYC2TAB21 GT (09:14)
[2023-08-18] MEDS ORDERED: IPRA0.2S49 IH ×2 (09:14)
[2023-08-18] MEDS ORDERED: TAMS-12 GT (09:14)
[2023-08-18] MEDS ORDERED: LORA-259 GT (09:14)
[2023-08-18] MEDS ORDERED: ARTIFICIAL TEAR EACHEYE (09:14)
[2023-08-18] MEDS ORDERED: ZINC1CAP3 GT (09:14)
[2023-08-18] MEDS ORDERED: ARGI1POW17 GT (09:14)
[2023-08-18] MEDS ORDERED: METO5TAB2 GT (09:14)
[2023-08-18] MEDS ORDERED: HYDROGEN PEROXIDE TP (09:14)
[2023-08-18] MEDS ORDERED: ASCO500T10 GT (09:14)
[2023-08-18] MEDS ORDERED: MULT-213 GT (09:14)
[2023-08-18] MEDS ORDERED: PROP20TA7 GT (09:14)
[2023-08-18] MEDS ORDERED: NUT.237L65 GT (09:14)
[2023-08-18] MEDS ORDERED: ACID1TAB12 GT (09:14)
[2023-08-18] MEDS ORDERED: HYDR-4303 GT (09:14)
[2023-08-18] MEDS ORDERED: GABA250S2 GT (09:14)
[2023-08-18] MEDS ORDERED: ACET-868 GT ×2 (09:14)
[2023-08-18] MEDS ORDERED: GUAI100S11 GT (09:14)
[2023-08-18] MEDS ORDERED: INDO-12 GT (09:14)
[2023-08-18] MEDS ORDERED: CHOL200059 GT (09:14)
[2023-08-18] MEDS ORDERED: GUAR205P3 GT (09:14)
[2023-08-18] MEDS: GABAPENTIN 100 MG CAPSULE GT SCH (09:30)
[2023-08-18] MEDS: BACLOFEN (10 MG) 10 MG TABLET GT SCH (09:30)
[2023-08-18] MEDS: CHOLECALCIFEROL 1,000 UNIT TABLET (VIT D3) GT SCH (09:30)
[2023-08-18] MEDS: SIMETHICONE 80 MG TAB.CHEW GT SCH (09:31)
[2023-08-18] MEDS: PROPRANOLOL HCL 10 MG TABLET GT SCH (09:31)
[2023-08-18] MEDS: CLONIDINE HCL 0.1 MG TABLET GT SCH ×2 (09:31→21:33)
[2023-08-18] MEDS: DIAZEPAM 2 MG TABLET GT SCH (09:36)
[2023-08-18] MEDS: ZOSYN IVPB 3.375 G in IV D5W 50ml IV SCH (11:23)
[2023-08-18] MEDS: GLYCOPYRROLATE 0.2 MG/ML VIAL GT SCH (11:24)
[2023-08-18] MEDS: IV NS 0.9% 1,000 ML IV PRN (11:25)
[2023-08-18] MEDS: ENOXAPARIN SODIUM 40 MG/0.4 ML DISP.SYRIN SQ SCH (11:28)
[2023-08-18] MEDS: ALBUTEROL FS 2.5 MG/3 ML VIAL.NEB IH SCH (12:07)
[2023-08-18] MEDS: ERYTHROMYCIN ETHYLSUCCINATE 200 MG/5 ML BOTTLE GT SCH (13:37)
[2023-08-18] MEDS: VITAL AF 1.2 1,000 ML BOTTLE GT PRN (17:31)
[2023-08-18] MEDS ORDERED: ERYTHROMYCIN ETHYLSUCCINATE 200 MG/5 ML BOTTLE GT SCH (17:34)
[2023-08-18] MEDS ORDERED: ERYTHROMYCIN ETHYLSUCCINATE 200 MG/5 ML SUSPENSION GT SCH (18:00)
[2023-08-18] MEDS: ERYTHROMYCIN ETHYLSUCCINATE 200 MG/5 ML SUSPENSION GT SCH (21:34)
[2023-08-19] VITALS (21 sets, daily range): BP systolic 91–167; BP diastolic 65–94; TEMP 99.3–102.6; O2SAT 95–100
[2023-08-19] MEDS ORDERED: GUAIFENESIN 300 MG/15 ML UDC GT PRN
[2023-08-19] MEDS ORDERED: ACETAMINOPHEN 325 MG TABLET MC PRN
[2023-08-19] MEDS: IPRATROPIUM NEB FS 0.5 MG/2.5 ML AMPUL.NEB IH SCH
[2023-08-19] MEDS ORDERED: ALBUTEROL FS 2.5 MG/3 ML VIAL.NEB IH PRN
[2023-08-19] MEDS ORDERED: BISACODYL SUPP (10 MG) 10 MG/SUPP.RECT SUPP.RECT RC PRN
[2023-08-19] MEDS ORDERED: IPRATROPIUM NEB FS 0.5 MG/2.5 ML AMPUL.NEB IH PRN
[2023-08-19] MEDS ORDERED: GUAR GUM GT SCH (05:00)
[2023-08-19] MEDS: HYDROCODONE/APAP 5/325MG TABLET GT PRN (05:02)
[2023-08-19 08:19] LABS: BASOPHILS % (AUTO) 0.6 % (0.0-2.0); EOSINOPHILS # (AUTO) 0.1 K/uL (0.0-0.7); EOSINOPHILS % (AUTO) 1.2 % (0.0-6.0); HEMATOCRIT 39 % (39-51); HEMOGLOBIN 12.9 g/dL (13.5-17.5); LYMPHOCYTES # (AUTO) 1.6 K/uL (0.8-4.8); LYMPHOCYTES % (AUTO) 24.6 % (20.0-44.0); MEAN CORPUSCULAR HEMOGLOBIN 32 PG (26.0-33.0); MEAN CORPUSCULAR HGB CONC 34 g/dl (31.0-36.0); MEAN CORPUSCULAR VOLUME 96 fL (80-96); MONOCYTES # (AUTO) 0.9 K/uL (0.1-1.30); NEUTROPHILS % (AUTO) 60.6 % (43.0-81.0); PLATELET COUNT (AUTO) 262 K/uL (150-450); RED BLOOD CELL COUNT(AUTO) 4.01 MIL/uL (4.5-6.0); RED CELL DISTRIBUTION WIDTH 13.1 % (11.5-15.0); WHITE BLOOD COUNT (AUTO) 6.6 K/uL (4.3-11.0)
[2023-08-19] MEDS: ACETAMINOPHEN 325 MG TABLET PO SCH (08:22)
[2023-08-19] MEDS: ASCORBIC ACID 500 MG TABLET GT SCH (08:25)
[2023-08-19] MEDS: TAMSULOSIN 0.4 MG CAP.SR.24H GT SCH (08:25)
[2023-08-19] MEDS: ACIDOPHILUS/BULGARICUS 1 EACH TAB.CHEW GT SCH (08:25)
[2023-08-19] MEDS: INDOMETHACIN 25 MG CAPSULE GT SCH (08:26)
[2023-08-19 08:32] LABS: CALCIUM, SERUM 8.6 mg/dL (8.5-10.1); CREATININE 0.4 mg/dL (0.6-1.3); MAGNESIUM 2.4 mg/dL (1.8-2.4); PHOSPHORUS 3.4 mg/dL (2.5-4.9); POTASSIUM 3.9 mmol/L (3.5-5.1)
[2023-08-19] MEDS: MULTIVIT W/MINERALS 1 TAB TABLET GT SCH (08:37)
[2023-08-19] MEDS: PROSOURCE / PROSTAT (PYXIS) 30 ML UDC GT SCH (08:40)
[2023-08-19] MEDS: PROPRANOLOL HCL 10 MG TABLET GT SCH (09:07)
[2023-08-19] MEDS: METOCLOPRAMIDE HCL 10 MG TABLET GT SCH (13:39)
[2023-08-19] MEDS: ACETAMINOPHEN 325 MG TABLET PO PRN (15:55)
[2023-08-19] MEDS: ARGININE/GLUTAMINE/CALCIUM BMB 1 EACH POWD.PACK GT SCH (16:35)
[2023-08-19] MEDS: GLYCOPYRROLATE 1 MG TABLET GT SCH (17:07)
[2023-08-19] MEDS: ZINC SULFATE 220 MG CAPSULE GT SCH (21:42)
[2023-08-20] VITALS (17 sets, daily range): BP systolic 114–138; BP diastolic 93–102; TEMP 98.1–102.3; O2SAT 97–100
[2023-08-20] MEDS: GABAPENTIN 400 MG CAPSULE PO SCH (00:08)
[2023-08-20 08:09] LABS: BASOPHILS % (AUTO) 0.5 % (0.0-2.0); EOSINOPHILS # (AUTO) 0.3 K/uL (0.0-0.7); EOSINOPHILS % (AUTO) 4.3 % (0.0-6.0); HEMATOCRIT 40 % (39-51); HEMOGLOBIN 13.5 g/dL (13.5-17.5); LYMPHOCYTES # (AUTO) 2.5 K/uL (0.8-4.8); LYMPHOCYTES % (AUTO) 32.9 % (20.0-44.0); MEAN CORPUSCULAR HEMOGLOBIN 32 PG (26.0-33.0); MEAN CORPUSCULAR HGB CONC 34 g/dl (31.0-36.0); MEAN CORPUSCULAR VOLUME 95 fL (80-96); MONOCYTES # (AUTO) 0.7 K/uL (0.1-1.30); MONOCYTES % (AUTO) 9.2 % (2.0-12.0); NEUTROPHILS % (AUTO) 53.1 % (43.0-81.0); PLATELET COUNT (AUTO) 277 K/uL (150-450); RED BLOOD CELL COUNT(AUTO) 4.15 MIL/uL (4.5-6.0); RED CELL DISTRIBUTION WIDTH 13.2 % (11.5-15.0); WHITE BLOOD COUNT (AUTO) 7.6 K/uL (4.3-11.0)
[2023-08-20 08:21] LABS: CALCIUM, SERUM 8.6 mg/dL (8.5-10.1); CREATININE 0.5 mg/dL (0.6-1.3); POTASSIUM 3.6 mmol/L (3.5-5.1)
[2023-08-20] MEDS: IPRATROPIUM NEB FS 0.5 MG/2.5 ML AMPUL.NEB IH SCH (20:05)
[2023-08-21] VITALS (14 sets, daily range): BP systolic 97–103; BP diastolic 65–68; TEMP 98.5–99; O2SAT 98–100
[2023-08-21 07:33] LABS: BASOPHILS % (AUTO) 0.7 % (0.0-2.0); EOSINOPHILS # (AUTO) 0.3 K/uL (0.0-0.7); EOSINOPHILS % (AUTO) 6.9 % (0.0-6.0); HEMATOCRIT 36 % (39-51); HEMOGLOBIN 12.1 g/dL (13.5-17.5); LYMPHOCYTES # (AUTO) 1.8 K/uL (0.8-4.8); MEAN CORPUSCULAR HEMOGLOBIN 33 PG (26.0-33.0); MEAN CORPUSCULAR HGB CONC 34 g/dl (31.0-36.0); MEAN CORPUSCULAR VOLUME 96 fL (80-96); MONOCYTES # (AUTO) 0.5 K/uL (0.1-1.30); MONOCYTES % (AUTO) 11.3 % (2.0-12.0); NEUTROPHILS # (AUTO) 1.5 K/uL (1.8-8.9); NEUTROPHILS % (AUTO) 37.1 % (43.0-81.0); PLATELET COUNT (AUTO) 227 K/uL (150-450); RED BLOOD CELL COUNT(AUTO) 3.73 MIL/uL (4.5-6.0); RED CELL DISTRIBUTION WIDTH 12.9 % (11.5-15.0)
[2023-08-21 08:51] LABS: CALCIUM, SERUM 8.5 mg/dL (8.5-10.1); CREATININE 0.4 mg/dL (0.6-1.3); POTASSIUM 3.3 mmol/L (3.5-5.1)
[2023-08-21] MEDS ORDERED: IOHEXOL-300 10 ML VIAL IV ONE (09:57)
[2023-08-21] MEDS ORDERED: IOHEXOL-300 100 ML VIAL IV ONE (09:58)
[2023-08-21] MEDS ORDERED: CT SWABBABLE VALVE TRANS SET 1 EA INFUS.SET MC ONE (09:58)
[2023-08-21] MEDS ORDERED: IV NS 0.9% 250 ML IV ONE (09:59)
[2023-08-21] MEDS: POTASSIUM CHLORIDE 20 MEQ POWDER PACKET NG SCH (10:31)
[2023-08-21] MEDS: BROMOCRIPTINE MESYLATE (2.5MG) 2.5 MG TABLET PEG SCH (12:01)
[2023-08-21] MEDS ORDERED: CHOLECALCIFEROL 1,000 UNIT TABLET (VIT D3) GT SCH (14:00)
[2023-08-21] MEDS: POLYETHYLENE GLYCOL 3350 17 GM POWD.PACK PO SCH (14:38)
[2023-08-21] MEDS: PROPRANOLOL HCL 10 MG TABLET PEG SCH (21:19)
[2023-08-22] VITALS (17 sets, daily range): BP systolic 110–138; BP diastolic 74–90; TEMP 98.8–99; O2SAT 91–100
[2023-08-22] MEDS: VITAL AF 1.2 1,000 ML BOTTLE GT PRN (06:12)
[2023-08-22 07:33] LABS: BASOPHILS % (AUTO) 0.7 % (0.0-2.0); EOSINOPHILS # (AUTO) 0.5 K/uL (0.0-0.7); EOSINOPHILS % (AUTO) 10.4 % (0.0-6.0); HEMATOCRIT 40 % (39-51); HEMOGLOBIN 13.6 g/dL (13.5-17.5); LYMPHOCYTES # (AUTO) 1.8 K/uL (0.8-4.8); LYMPHOCYTES % (AUTO) 39.7 % (20.0-44.0); MEAN CORPUSCULAR HEMOGLOBIN 33 PG (26.0-33.0); MEAN CORPUSCULAR HGB CONC 34 g/dl (31.0-36.0); MEAN CORPUSCULAR VOLUME 95 fL (80-96); MONOCYTES # (AUTO) 0.4 K/uL (0.1-1.30); MONOCYTES % (AUTO) 8.9 % (2.0-12.0); NEUTROPHILS # (AUTO) 1.8 K/uL (1.8-8.9); NEUTROPHILS % (AUTO) 40.3 % (43.0-81.0); PLATELET COUNT (AUTO) 242 K/uL (150-450); RED BLOOD CELL COUNT(AUTO) 4.17 MIL/uL (4.5-6.0); RED CELL DISTRIBUTION WIDTH 13.1 % (11.5-15.0); WHITE BLOOD COUNT (AUTO) 4.4 K/uL (4.3-11.0)
[2023-08-22 08:08] LABS: CALCIUM, SERUM 8.8 mg/dL (8.5-10.1); CREATININE 0.4 mg/dL (0.6-1.3); POTASSIUM 3.5 mmol/L (3.5-5.1)
[2023-08-22] MEDS: CLONIDINE HCL 0.2MG/24H PTWK 1 EA PATCH TD SCH (08:33)
[2023-08-22] MEDS: IV D5/ 0.9% NACL 1,000 ML IV PRN (23:52)
[2023-08-23] VITALS (19 sets, daily range): BP systolic 138–167; BP diastolic 84–114; TEMP 100–104.4; O2SAT 92–100
[2023-08-23 07:23] LABS: BASOPHILS # (AUTO) 0.1 K/uL (0.0-0.2); BASOPHILS % (AUTO) 0.8 % (0.0-2.0); EOSINOPHILS # (AUTO) 0.4 K/uL (0.0-0.7); EOSINOPHILS % (AUTO) 6.9 % (0.0-6.0); HEMATOCRIT 42 % (39-51); HEMOGLOBIN 14.2 g/dL (13.5-17.5); LYMPHOCYTES # (AUTO) 1.4 K/uL (0.8-4.8); LYMPHOCYTES % (AUTO) 22.2 % (20.0-44.0); MEAN CORPUSCULAR HEMOGLOBIN 33 PG (26.0-33.0); MEAN CORPUSCULAR HGB CONC 34 g/dl (31.0-36.0); MEAN CORPUSCULAR VOLUME 96 fL (80-96); MONOCYTES # (AUTO) 0.6 K/uL (0.1-1.30); NEUTROPHILS % (AUTO) 61.1 % (43.0-81.0); PLATELET COUNT (AUTO) 277 K/uL (150-450); RED BLOOD CELL COUNT(AUTO) 4.35 MIL/uL (4.5-6.0); RED CELL DISTRIBUTION WIDTH 13.3 % (11.5-15.0); WHITE BLOOD COUNT (AUTO) 6.5 K/uL (4.3-11.0)
[2023-08-23 07:36] LABS: CREATININE 0.4 mg/dL (0.6-1.3); POTASSIUM 3.2 mmol/L (3.5-5.1)
[2023-08-23] MEDS: LORAZEPAM INJ 2 MG/ML VIAL IV PRN (08:29)
[2023-08-23] MEDS: DILTIAZEM HCL 25 MG IV IV PRN (09:23)
[2023-08-23] MEDS: POTASSIUM CHLORIDE 20 MEQ POWDER PACKET GT SCH (10:30)
[2023-08-23] MEDS: POTASSIUM CL. PREMIX PERIPHER. 50 ML IV SCH (12:10)
[2023-08-23] MEDS: ACETAMINOPHEN 650 MG/SUPP.RECT RC PRN (13:56)
[2023-08-23] MEDS ORDERED: PIPERACILLIN /TAZOBACTAM 2.25 G in IV D5W 50 ML IV SCH (21:00)
[2023-08-23] MEDS: PIPERCILLIN/TAZOBACTAM 2.25GM/D5W 50MLPB IV ONE (21:18)
[2023-08-23] MEDS: PIPERACILLIN /TAZOBACTAM 2.25 G in IV D5W 50 ML IV SCH (21:26)
[2023-08-24] VITALS (19 sets, daily range): BP systolic 116–144; BP diastolic 82–118; TEMP 98.4–102.4; O2SAT 98–100
[2023-08-24] MEDS: PIPERCILLIN/TAZOBACTAM 2.25GM/D5W 50MLPB IV ONE (05:11)
[2023-08-24] MEDS ORDERED: POLYETHYLENE GLYCOL 3350 17 GM POWD.PACK PO SCH (06:30)
[2023-08-24 07:14] LABS: BASOPHILS % (AUTO) 0.2 % (0.0-2.0); HEMATOCRIT 43 % (39-51); HEMOGLOBIN 14.5 g/dL (13.5-17.5); LYMPHOCYTES # (AUTO) 1.2 K/uL (0.8-4.8); LYMPHOCYTES % (AUTO) 16.8 % (20.0-44.0); MEAN CORPUSCULAR HEMOGLOBIN 33 PG (26.0-33.0); MEAN CORPUSCULAR HGB CONC 34 g/dl (31.0-36.0); MEAN CORPUSCULAR VOLUME 98 fL (80-96); MONOCYTES # (AUTO) 1.1 K/uL (0.1-1.30); MONOCYTES % (AUTO) 15.8 % (2.0-12.0); NEUTROPHILS # (AUTO) 4.7 K/uL (1.8-8.9); NEUTROPHILS % (AUTO) 67.2 % (43.0-81.0); PLATELET COUNT (AUTO) 218 K/uL (150-450); RED BLOOD CELL COUNT(AUTO) 4.44 MIL/uL (4.5-6.0); RED CELL DISTRIBUTION WIDTH 13.3 % (11.5-15.0)
[2023-08-24 07:22] LABS: CALCIUM, SERUM 8.3 mg/dL (8.5-10.1); CREATININE 0.4 mg/dL (0.6-1.3); POTASSIUM 2.9 mmol/L (3.5-5.1)
[2023-08-24] MEDS ORDERED: DIATR MEGLU/DIATRIZOATE SODIUM 120 ML BOTTLE (GASTROGRAPHIN) ONE (07:52)
[2023-08-24] MEDS ORDERED: POTASSIUM CHLORIDE 20 MEQ POWDER PACKET GT SCH (09:00)
[2023-08-24] MEDS: POTASSIUM CHLORIDE 20 MEQ POWDER PACKET GT SCH (09:01)
[2023-08-24 09:23] LABS: LYMPHOCYTES % (MANUAL) 22 % (16-48); MONOCYTES % (MANUAL) 15 % (0-11.0); NEUTROPHILS % (MANUAL) 63 (42-76); PLATELET ESTIMATE ADEQUATE
[2023-08-24] MEDS: PIPERACILLIN /TAZOBACTAM 3.375 G in IV D5W 100 ML IV SCH (10:49)
[2023-08-24] MEDS: Potassium Chloride 20 MEQ in IV D5/0.45 NACL 1,000 ML IV PRN (13:21)
[2023-08-25] VITALS (16 sets, daily range): BP systolic 100–110; BP diastolic 67–79; TEMP 98.8–100.9; O2SAT 98–100
[2023-08-25 08:02] LABS: BASOPHILS % (AUTO) 0.3 % (0.0-2.0); EOSINOPHILS % (AUTO) 0.5 % (0.0-6.0); HEMATOCRIT 39 % (39-51); LYMPHOCYTES # (AUTO) 1.4 K/uL (0.8-4.8); LYMPHOCYTES % (AUTO) 23.9 % (20.0-44.0); MEAN CORPUSCULAR HEMOGLOBIN 32 PG (26.0-33.0); MEAN CORPUSCULAR HGB CONC 34 g/dl (31.0-36.0); MEAN CORPUSCULAR VOLUME 96 fL (80-96); MONOCYTES # (AUTO) 0.4 K/uL (0.1-1.30); MONOCYTES % (AUTO) 7.2 % (2.0-12.0); NEUTROPHILS % (AUTO) 68.1 % (43.0-81.0); PLATELET COUNT (AUTO) 228 K/uL (150-450); RED BLOOD CELL COUNT(AUTO) 4.04 MIL/uL (4.5-6.0); RED CELL DISTRIBUTION WIDTH 13.3 % (11.5-15.0); WHITE BLOOD COUNT (AUTO) 5.8 K/uL (4.3-11.0)
[2023-08-25 08:14] LABS: CALCIUM, SERUM 8.5 mg/dL (8.5-10.1); CREATININE 0.5 mg/dL (0.6-1.3); POTASSIUM 3.2 mmol/L (3.5-5.1)
[2023-08-25] MEDS: POTASSIUM CL. PREMIX PERIPHER. 50 ML IV SCH (17:56)
[2023-08-25] MEDS ORDERED: Potassium Chloride 20 MEQ in IV D5/0.45 NACL 1,000 ML IV SCH (20:31)
[2023-08-25] MEDS: METOCLOPRAMIDE HCL 10 MG/2 ML VIAL IV SCH (20:44)
[2023-08-26] VITALS (18 sets, daily range): BP systolic 92–103; BP diastolic 51–77; TEMP 97.9–98.6; O2SAT 95–100
[2023-08-26 07:37] LABS: BASOPHILS % (AUTO) 0.5 % (0.0-2.0); EOSINOPHILS # (AUTO) 0.3 K/uL (0.0-0.7); EOSINOPHILS % (AUTO) 5.1 % (0.0-6.0); HEMATOCRIT 36 % (39-51); HEMOGLOBIN 12.2 g/dL (13.5-17.5); LYMPHOCYTES # (AUTO) 1.7 K/uL (0.8-4.8); LYMPHOCYTES % (AUTO) 30.7 % (20.0-44.0); MEAN CORPUSCULAR HEMOGLOBIN 33 PG (26.0-33.0); MEAN CORPUSCULAR HGB CONC 34 g/dl (31.0-36.0); MEAN CORPUSCULAR VOLUME 96 fL (80-96); MONOCYTES # (AUTO) 0.4 K/uL (0.1-1.30); MONOCYTES % (AUTO) 6.8 % (2.0-12.0); NEUTROPHILS # (AUTO) 3.1 K/uL (1.8-8.9); NEUTROPHILS % (AUTO) 56.9 % (43.0-81.0); PLATELET COUNT (AUTO) 218 K/uL (150-450); RED BLOOD CELL COUNT(AUTO) 3.74 MIL/uL (4.5-6.0); RED CELL DISTRIBUTION WIDTH 13.3 % (11.5-15.0); WHITE BLOOD COUNT (AUTO) 5.4 K/uL (4.3-11.0)
[2023-08-26 07:58] LABS: CALCIUM, SERUM 8.5 mg/dL (8.5-10.1); CREATININE 0.3 mg/dL (0.6-1.3)
[2023-08-26] MEDS: BROMOCRIPTINE MESYLATE (2.5MG) 2.5 MG TABLET PEG SCH (16:30)
[2023-08-27] VITALS (20 sets, daily range): BP systolic 99–120; BP diastolic 48–69; TEMP 97.7–98.8; O2SAT 95–100
[2023-08-27 08:38] LABS: BASOPHILS % (AUTO) 0.6 % (0.0-2.0); EOSINOPHILS # (AUTO) 0.3 K/uL (0.0-0.7); EOSINOPHILS % (AUTO) 5.3 % (0.0-6.0); HEMATOCRIT 38 % (39-51); HEMOGLOBIN 12.8 g/dL (13.5-17.5); LYMPHOCYTES % (AUTO) 20.4 % (20.0-44.0); MEAN CORPUSCULAR HEMOGLOBIN 32 PG (26.0-33.0); MEAN CORPUSCULAR HGB CONC 34 g/dl (31.0-36.0); MEAN CORPUSCULAR VOLUME 95 fL (80-96); MONOCYTES # (AUTO) 0.4 K/uL (0.1-1.30); MONOCYTES % (AUTO) 7.9 % (2.0-12.0); NEUTROPHILS # (AUTO) 3.3 K/uL (1.8-8.9); NEUTROPHILS % (AUTO) 65.8 % (43.0-81.0); PLATELET COUNT (AUTO) 227 K/uL (150-450); RED CELL DISTRIBUTION WIDTH 13.4 % (11.5-15.0); WHITE BLOOD COUNT (AUTO) 5.1 K/uL (4.3-11.0)
[2023-08-27 09:03] LABS: CALCIUM, SERUM 8.7 mg/dL (8.5-10.1); CREATININE 0.4 mg/dL (0.6-1.3); PHOSPHORUS 4.6 mg/dL (2.5-4.9); POTASSIUM 3.4 mmol/L (3.5-5.1)
[2023-08-27] MEDS: POTASSIUM CHLORIDE 20 MEQ POWDER PACKET NG SCH (13:01)
[2023-08-28] VITALS (17 sets, daily range): BP systolic 85–108; BP diastolic 50–76; TEMP 98–99.4; O2SAT 98–100
[2023-08-28 06:42] LABS: BASOPHILS % (AUTO) 0.3 % (0.0-2.0); EOSINOPHILS # (AUTO) 0.2 K/uL (0.0-0.7); EOSINOPHILS % (AUTO) 3.9 % (0.0-6.0); HEMATOCRIT 36 % (39-51); HEMOGLOBIN 12.3 g/dL (13.5-17.5); LYMPHOCYTES % (AUTO) 17.3 % (20.0-44.0); MEAN CORPUSCULAR HEMOGLOBIN 32 PG (26.0-33.0); MEAN CORPUSCULAR HGB CONC 34 g/dl (31.0-36.0); MEAN CORPUSCULAR VOLUME 96 fL (80-96); MONOCYTES # (AUTO) 0.6 K/uL (0.1-1.30); MONOCYTES % (AUTO) 11.1 % (2.0-12.0); NEUTROPHILS # (AUTO) 3.8 K/uL (1.8-8.9); NEUTROPHILS % (AUTO) 67.4 % (43.0-81.0); PLATELET COUNT (AUTO) 215 K/uL (150-450); RED BLOOD CELL COUNT(AUTO) 3.78 MIL/uL (4.5-6.0); RED CELL DISTRIBUTION WIDTH 13.3 % (11.5-15.0); WHITE BLOOD COUNT (AUTO) 5.6 K/uL (4.3-11.0)
[2023-08-28 06:58] LABS: CALCIUM, SERUM 8.8 mg/dL (8.5-10.1); CREATININE 0.4 mg/dL (0.6-1.3); MAGNESIUM 2.4 mg/dL (1.8-2.4); POTASSIUM 3.6 mmol/L (3.5-5.1)
[2023-08-28] MEDS: PROSOURCE / PROSTAT (PYXIS) 30 ML UDC GT SCH (09:27)
[2023-08-28] MEDS: THERAHONEY GEL 1.5 OZ TUBE TP SCH ×2 (09:36→14:15)
[2023-08-28] MEDS: ARGININE/GLUTAMINE/CALCIUM BMB 1 EACH POWD.PACK GT SCH (09:41)
[2023-08-28] MEDS: PROPRANOLOL HCL 10 MG TABLET GT SCH (11:00)
[2023-08-28] MEDS: GABAPENTIN 400 MG CAPSULE GT SCH (12:17)
[2023-08-28] MEDS: KETOCONAZOLE 2% CREAM 15 GM TUBE TP SCH (14:15)
[2023-08-28] MEDS: ZINC OXIDE 30 GM TUBE TP PRN (14:16)
[2023-08-28] MEDS: VITAL AF 1.2 1,000 ML BOTTLE GT PRN (15:29)
[2023-08-28] MEDS ORDERED: METOCLOPRAMIDE HCL 10 MG/10 ML UDC GT SCH (17:00)
[2023-08-28] MEDS: METOCLOPRAMIDE HCL 10 MG/10 ML UDC GT SCH (17:03)
[2023-08-28] MEDS: ACETAMINOPHEN 650 MG/20.3 ML UDC GT SCH (21:43)
[2023-08-29] VITALS (18 sets, daily range): BP systolic 103–108; BP diastolic 78–86; TEMP 99.2–101.3; O2SAT 94–100
[2023-08-29 06:40] LABS: BASOPHILS % (AUTO) 0.5 % (0.0-2.0); EOSINOPHILS # (AUTO) 0.2 K/uL (0.0-0.7); EOSINOPHILS % (AUTO) 3.3 % (0.0-6.0); HEMATOCRIT 36 % (39-51); HEMOGLOBIN 12.1 g/dL (13.5-17.5); LYMPHOCYTES % (AUTO) 19.9 % (20.0-44.0); MEAN CORPUSCULAR HEMOGLOBIN 32 PG (26.0-33.0); MEAN CORPUSCULAR HGB CONC 34 g/dl (31.0-36.0); MEAN CORPUSCULAR VOLUME 96 fL (80-96); MONOCYTES # (AUTO) 0.4 K/uL (0.1-1.30); NEUTROPHILS # (AUTO) 3.4 K/uL (1.8-8.9); NEUTROPHILS % (AUTO) 68.3 % (43.0-81.0); PLATELET COUNT (AUTO) 246 K/uL (150-450); RED BLOOD CELL COUNT(AUTO) 3.75 MIL/uL (4.5-6.0); RED CELL DISTRIBUTION WIDTH 13.2 % (11.5-15.0); WHITE BLOOD COUNT (AUTO) 4.9 K/uL (4.3-11.0)
[2023-08-29 06:42] LABS: CALCIUM, SERUM 8.7 mg/dL (8.5-10.1); CREATININE 0.4 mg/dL (0.6-1.3); MAGNESIUM 2.3 mg/dL (1.8-2.4); PHOSPHORUS 3.7 mg/dL (2.5-4.9); POTASSIUM 3.3 mmol/L (3.5-5.1)
[2023-08-29] MEDS ORDERED: POTASSIUM CL. PREMIX PERIPHER. 50 ML IV SCH (10:00)
[2023-08-29] MEDS: POTASSIUM CHLORIDE 20 MEQ POWDER PACKET NG SCH (10:14)
[2023-08-29] MEDS: ACETAMINOPHEN 650 MG/20.3 ML UDC GT PRN (15:21)
[2023-08-30] VITALS (14 sets, daily range): BP systolic 99–107; BP diastolic 66–74; TEMP 97.7–100; O2SAT 96–100
[2023-08-30 07:56] LABS: BASOPHILS % (AUTO) 0.7 % (0.0-2.0); EOSINOPHILS # (AUTO) 0.2 K/uL (0.0-0.7); EOSINOPHILS % (AUTO) 3.8 % (0.0-6.0); HEMATOCRIT 34 % (39-51); HEMOGLOBIN 11.5 g/dL (13.5-17.5); LYMPHOCYTES # (AUTO) 1.5 K/uL (0.8-4.8); LYMPHOCYTES % (AUTO) 25.9 % (20.0-44.0); MEAN CORPUSCULAR HEMOGLOBIN 32 PG (26.0-33.0); MEAN CORPUSCULAR HGB CONC 34 g/dl (31.0-36.0); MEAN CORPUSCULAR VOLUME 96 fL (80-96); MONOCYTES # (AUTO) 0.6 K/uL (0.1-1.30); MONOCYTES % (AUTO) 10.7 % (2.0-12.0); NEUTROPHILS # (AUTO) 3.4 K/uL (1.8-8.9); NEUTROPHILS % (AUTO) 58.9 % (43.0-81.0); PLATELET COUNT (AUTO) 265 K/uL (150-450); RED BLOOD CELL COUNT(AUTO) 3.55 MIL/uL (4.5-6.0); RED CELL DISTRIBUTION WIDTH 13.2 % (11.5-15.0); WHITE BLOOD COUNT (AUTO) 5.7 K/uL (4.3-11.0)
[2023-08-30 08:36] LABS: CALCIUM, SERUM 8.7 mg/dL (8.5-10.1); CREATININE 0.3 mg/dL (0.6-1.3); MAGNESIUM 2.3 mg/dL (1.8-2.4); PHOSPHORUS 3.1 mg/dL (2.5-4.9)
[2023-08-30] MEDS ORDERED: PIPERCILLIN/TAZOBACTAM 2.25GM/D5W 50MLPB IV ONE (21:59)
[2023-08-30] MEDS ORDERED: PIPERACILLIN /TAZOBACTAM 2.25 G in IV D5W 50 ML IV SCH (22:00)
[2023-08-30] MEDS: PIPERACILLIN /TAZOBACTAM 2.25 G in IV D5W 50 ML IV SCH (22:02)
[2023-08-30] MEDS: POLYETHYLENE GLYCOL 3350 17 GM POWD.PACK PO SCH (22:13)
[2023-08-31] VITALS (14 sets, daily range): BP systolic 109–126; BP diastolic 67–98; TEMP 97.5–98.1; O2SAT 96–100
[2023-08-31] MEDS ORDERED: PIPERCILLIN/TAZOBACTAM 2.25GM/D5W 50MLPB IV ONE (05:55)
[2023-08-31] MEDS: ZOSYN IVPB 3.375 G in IV D5W 50ml IV SCH (11:14)
[2023-09-01] VITALS (16 sets, daily range): BP systolic 93–123; BP diastolic 65–90; TEMP 97.7–98.2; O2SAT 99–100
[2023-09-01] MEDS ORDERED: PIPE3.379 IV (12:22)
[2023-09-01] MEDS ORDERED: HONE44PA TP (18:58)
[2023-09-02] MEDS ORDERED: LORA2ORA GT (18:58)
[2023-09-02] MEDS ORDERED: POLY15DR31 EACHEYE (18:58)
[2023-09-02] MEDS ORDERED: CLON0.3T PO (18:58)
[2023-09-02] MEDS ORDERED: ZINC57OI4 TP (18:58)
[2023-09-02] MEDS ORDERED: BROM2.5T19 GT (18:58)
[2023-09-02] MEDS ORDERED: BUDE0.5A4 IH (18:58)
[2023-09-02] MEDS ORDERED: ALLA266C2 TP (18:58)
== END 2023-09-01 21:30 | DRG 710 ==
LOC: ER 03:32 → TRANSITION 05:54 → TELE 08:18 → MED 08-21 10:33
PROVIDERS: ADMIT Student in an Organized Health Care Education/Training Program; ATTEND Internal Medicine
PROC: 05HB33Z Insertion of Infusion Device into Right Basilic Vein, Percutaneous Approach (ICD-10-PCS; principal; 2023-08-23)
PROC: B54MZZA Ultrasonography of Right Upper Extremity Veins, Guidance (ICD-10-PCS; 2023-08-23)
PROC: 0D20XUZ Change Feeding Device in Upper Intestinal Tract, External Approach (ICD-10-PCS; 2023-08-24)
PROC: 0QB20ZZ Excision of Right Pelvic Bone, Open Approach (ICD-10-PCS; 2023-09-01)
DX: A41.9 Sepsis, unspecified organism (principal); J96.21 Acute and chronic respiratory failure with hypoxia; J69.0 Pneumonitis due to inhalation of food and vomit; G93.49 Other encephalopathy; I21.A1 Myocardial infarction type 2; L89.94 Pressure ulcer of unspecified site, stage 4; G93.1 Anoxic brain damage, not elsewhere classified; L89.214 Pressure ulcer of right hip, stage 4; R53.2 Functional quadriplegia; N17.9 Acute kidney failure, unspecified; E87.20 Acidosis, unspecified; E87.0 Hyperosmolality and hypernatremia; F73 Profound intellectual disabilities; E87.1 Hypo-osmolality and hyponatremia; G80.0 Spastic quadriplegic cerebral palsy; M41.40 Neuromuscular scoliosis, site unspecified; G90.1 Familial dysautonomia [Riley-Day]; Z93.0 Tracheostomy status; E86.0 Dehydration; G40.909 Epilepsy, unspecified, not intractable, without status epilepticus; M89.8X9 Other specified disorders of bone, unspecified site; R13.10 Dysphagia, unspecified; D64.9 Anemia, unspecified; I70.0 Atherosclerosis of aorta; I48.91 Unspecified atrial fibrillation; K21.9 Gastro-esophageal reflux disease without esophagitis; I10 Essential (primary) hypertension; Z66 Do not resuscitate; Z99.11 Dependence on respirator [ventilator] status; Z43.1 Encounter for attention to gastrostomy; B35.4 Tinea corporis; G90.9 Disorder of the autonomic nervous system, unspecified
CPT/HCPCS: 31720; 36410; 36415; 70450-TC; 71045-TC; 71250-TC; 74018; 80048-TC; 80076-TC; 81001; 82550-TC; 82962-TC; 83605-TC; 83735-TC; 84100-TC; 84484-TC; 85025-TC; 85730-TC; 87040-TC; 87086-TC; 93307-TC; 94640-TC; 94760-TC; 94761-TC; 94799-TC; A4223; A4623; A6253; A6403; A7526; G0378; J1650; J2060; J2405; J2543; J2765; J3480; J3490; J7030; J7042; J7050; J7060; J8597; Q9963; Q9967

== ENCOUNTER 2024-04-28 00:01 | Inpatient (IN) | payer OTHER ==
[~2024-04-28] VITALS: Ht 134.6 cm; Wt 39.0 kg
[~2024-04-28 00:01] MED LIST changes: +ACET-868 GT; -ACET650S26 GT; +ACID1TAB12 GT; +ALLA266C2 TP; +ARGI1POW17 GT; +ASCO500T10 GT; +BROM2.5T19 GT; +BUDE0.5A4 IH; -BUDE1AMP IH; -CHOL100062 GT; +CHOL200059 GT; -CLON0.3P TD; -CLON0.3T GT; +CLON0.3T PO; -CLON1PAT7 TD; -GABA-532 GT; +GABA250S2 GT; -GLYC0.2V GT; +GLYC2TAB21 GT; +GUAI100S11 GT; +GUAR205P3 GT; +HONE44PA TP; +HYDR-4303 GT; +HYDROGEN PEROXIDE TP; +INDO-12 GT; +IPRA0.2S49 IH; -LORA-259 GT; +LORA2ORA GT; +METO5TAB2 GT; +MULT-213 GT; +NUT.237L65 GT; +PETR113O TP; +PIPE3.379 IV; +POLY15DR31 EACHEYE; -POLY15DR40 EACHEYE; -PROP10TA10 GT; +PROP20TA7 GT; +TAMS-12 GT; +ZINC1CAP3 GT; +ZINC57OI4 TP; -[UNRECOGNIZED DRUG - CODE] GT
[2024-04-29] VITALS (12 sets, daily range): BP systolic 117–121; BP diastolic 80–84; TEMP 97.9–99; O2SAT 97–100
[2024-04-29] MEDS ORDERED: IPRATROPIUM NEB FS 0.5 MG/2.5 ML AMPUL.NEB HHN PRN (08:00)
[2024-04-29] MEDS ORDERED: HYDROGEN PEROXIDE 480 ML BOTTLE TP PRN (08:00)
[2024-04-29] MEDS ORDERED: TUBERCULIN,PURIF.PROT.DERIV. 5 TU/0.1 ML DISP.SYRIN ID SCH (08:00)
[2024-04-29] MEDS ORDERED: IBUPROFEN SUSP 100 MG/5 ML UDC-SA PATIENTS-FEVER ONLY GT PRN (08:00)
[2024-04-29] MEDS ORDERED: IV 1/2NS 1000 ML 1,000 ML IV PRN (08:00)
[2024-04-29] MEDS ORDERED: ALBUTEROL FS 2.5 MG/0.5 ML VIAL.NEB HHN PRN (08:00)
[2024-04-29] MEDS: POLYVINYL ALCOHOL 15 ML BOTTLE EACHEYE SCH (08:44)
[2024-04-29] MEDS: BACLOFEN (10 MG) 10 MG TABLET GT SCH ×2 (08:44→17:25)
[2024-04-29] MEDS: CLONIDINE HCL 0.1 MG TABLET GT SCH ×2 (08:49→21:00)
[2024-04-29] MEDS: PROPRANOLOL HCL 10 MG TABLET GT SCH (08:50)
[2024-04-29] MEDS: INDOMETHACIN 25 MG CAPSULE GT SCH (08:50)
[2024-04-29] MEDS: ARGININE/GLUTAMINE/CALCIUM BMB 1 EACH POWD.PACK GT SCH (08:51)
[2024-04-29] MEDS: ACIDOPHILUS/BULGARICUS 1 EACH TAB.CHEW GT SCH (08:51)
[2024-04-29] MEDS: BROMOCRIPTINE MESYLATE (2.5MG) 2.5 MG TABLET GT SCH (08:55)
[2024-04-29] MEDS: POLYETHYLENE GLYCOL 3350 17 GM POWD.PACK GT SCH (08:55)
[2024-04-29] MEDS: PROSOURCE / PROSTAT (PYXIS) 30 ML UDC GT SCH (08:56)
[2024-04-29] MEDS: FAMOTIDINE (20 MG) 20 MG TABLET GT SCH (08:56)
[2024-04-29] MEDS: MULTIVIT W/MINERALS 1 TAB TABLET GT SCH (08:56)
[2024-04-29] MEDS: DIAZEPAM 2 MG TABLET GT SCH (08:56)
[2024-04-29] MEDS: ASCORBIC ACID 500 MG TABLET GT SCH (08:58)
[2024-04-29] MEDS: CHOLECALCIFEROL 1,000 UNIT TABLET (VIT D3) GT SCH (08:58)
[2024-04-29] MEDS: Z GUARD REMEDY 4 OZ OINT TP SCH (09:02)
[2024-04-29] MEDS: DAKINS QUARTER STRENGTH (0.125%) 480 ML BOTTLE TOP SCH (09:02)
[2024-04-29] MEDS: ZINC OXIDE 30 GM TUBE TP SCH (09:03)
[2024-04-29] MEDS: HYDROGEN PEROXIDE 480 ML BOTTLE TP SCH (09:06)
[2024-04-29] MEDS: BENEFIBER 4 GM 1 EA PACKET GT SCH (12:42)
[2024-04-29] MEDS: GABAPENTIN GT SCH (12:42)
[2024-04-29] MEDS: GLYCOPYRROLATE 1 MG TABLET GT SCH (12:42)
[2024-04-29] MEDS: ERYTHROMYCIN ETHYLSUCCINATE 200 MG/5 ML SUSPENSION GT SCH (12:42)
[2024-04-29] MEDS: METOCLOPRAMIDE HCL 10 MG/10 ML UDC GT SCH (12:43)
[2024-04-29] MEDS: SIMETHICONE SUSP 40 MG/0.6 ML BOTTLE GT SCH (12:48)
[2024-04-29] MEDS: IPRATROPIUM NEB FS 0.5 MG/2.5 ML AMPUL.NEB NEB SCH (13:06)
[2024-04-29] MEDS: ALBUTEROL FS 2.5 MG/0.5 ML VIAL.NEB NEB SCH (13:06)
[2024-04-29] MEDS: BUDESONIDE RESPULE INH 0.5 MG/2 ML AMPUL.NEB HHN SCH (20:23)
[2024-04-29] MEDS: TRAMADOL HCL 50 MG TABLET GT SCH (20:59)
[2024-04-29] MEDS: TAMSULOSIN 0.4 MG CAP.SR.24H GT SCH (21:00)
[2024-04-29] MEDS: ZINC SULFATE 220 MG CAPSULE GT SCH (21:00)
[2024-04-30] VITALS (15 sets, daily range): BP systolic 127; BP diastolic 73–89; TEMP 98.6–99; O2SAT 97–100
[2024-04-30] MEDS: JEVITY 1.5 CAL LIQUID 1,000 ML BOTTLE GT PRN (04:44)
[2024-05-01] VITALS (14 sets, daily range): BP systolic 126–133; BP diastolic 79–90; TEMP 98–98.5; O2SAT 94–100
[2024-05-02] VITALS (14 sets, daily range): BP systolic 111–129; BP diastolic 73–99; TEMP 98.2–98.6; O2SAT 91–100
[2024-05-03] VITALS (13 sets, daily range): BP systolic 101–120; BP diastolic 63–84; RESP 20; TEMP 97.9–98.1; O2SAT 94–100
[2024-05-04] VITALS (13 sets, daily range): BP systolic 136; BP diastolic 87–90; TEMP 97.5–98.1; O2SAT 97–100
[2024-05-05] VITALS (15 sets, daily range): BP systolic 104–132; BP diastolic 74–81; TEMP 97.5–97.9; O2SAT 95–100
[2024-05-05] MEDS: LORAZEPAM 2 MG GT PRN (16:16)
[2024-05-06] VITALS (11 sets, daily range): BP systolic 130–140; BP diastolic 69–93; TEMP 98.2–98.4; O2SAT 96–100
[2024-05-06] MEDS: HYDROCODONE/APAP 5/325MG TABLET GT PRN (17:07)
[2024-05-07] VITALS (12 sets, daily range): BP systolic 112–130; BP diastolic 87–88; TEMP 97.8–98; O2SAT 98–100
[2024-05-08] VITALS (12 sets, daily range): BP systolic 118–130; BP diastolic 71–87; TEMP 97.9; O2SAT 97–100
[2024-05-09] VITALS (12 sets, daily range): BP systolic 112–122; BP diastolic 73–82; TEMP 97.7–98.8; O2SAT 98–100
[2024-05-10] VITALS (14 sets, daily range): BP systolic 113–124; BP diastolic 84–94; TEMP 98.1; O2SAT 96–100
[2024-05-11] VITALS (13 sets, daily range): BP systolic 101–127; BP diastolic 59–86; TEMP 97.7–98.7; O2SAT 97–100
[2024-05-12] VITALS (12 sets, daily range): BP systolic 129; BP diastolic 79; TEMP 98.4; O2SAT 97–100
[2024-05-13] VITALS (13 sets, daily range): BP systolic 107–111; BP diastolic 83–87; TEMP 99–100.6; O2SAT 97–100
[2024-05-13] MEDS: BISACODYL SUPP (10 MG) 10 MG/SUPP.RECT SUPP.RECT RC PRN (06:40)
[2024-05-13] MEDS: PNEUMOC 20-VAL CONJ-DIP CRM/PF 0.5 ML SYRINGE IM ONE (17:17)
[2024-05-14] VITALS (12 sets, daily range): BP systolic 115; BP diastolic 67–83; TEMP 97.7–97.8; O2SAT 94–100
[2024-05-15] VITALS (12 sets, daily range): BP systolic 112–124; BP diastolic 64–87; TEMP 97.7–97.9; O2SAT 97–100
[2024-05-16] VITALS (11 sets, daily range): BP systolic 131–134; BP diastolic 96–97; TEMP 97.9–99; O2SAT 96–99
[2024-05-17] VITALS (13 sets, daily range): BP systolic 131–141; BP diastolic 72–99; TEMP 99; O2SAT 94–99
[2024-05-17] MEDS: TUBERCULIN,PURIF.PROT.DERIV. 5 TU/0.1 ML VIAL ID SCH (17:48)
[2024-05-18] VITALS (12 sets, daily range): BP systolic 117–125; BP diastolic 69–73; TEMP 98.9–100; O2SAT 94–98
[2024-05-18] MEDS: DAKINS QUARTER STRENGTH (0.125%) 480 ML BOTTLE MC SCH (11:09)
[2024-05-18] MEDS: ZINC OXIDE 30 GM TUBE TP SCH (11:09)
[2024-05-19] VITALS (11 sets, daily range): BP systolic 109–131; BP diastolic 76–80; TEMP 98.4–99.3; O2SAT 94–99
[2024-05-20] VITALS (13 sets, daily range): BP systolic 130–145; BP diastolic 63–85; TEMP 97.5–97.9; O2SAT 80–100
[2024-05-20] MEDS: RIFAMPIN 300 MG CAPSULE GT SCH (08:46)
[2024-05-20] MEDS: NEOMY SULF/BACITRAC ZN/POLY 15 GM TUBE TP SCH (21:25)
[2024-05-21] VITALS (11 sets, daily range): BP systolic 113–131; BP diastolic 84–89; TEMP 98–98.1; O2SAT 94–100
[2024-05-22] VITALS (12 sets, daily range): BP systolic 143; BP diastolic 91; O2SAT 95–100
[2024-05-23] VITALS (11 sets, daily range): BP systolic 109; BP diastolic 79; TEMP 98.8; O2SAT 98–100
[2024-05-24] VITALS (13 sets, daily range): BP systolic 108–145; BP diastolic 53–82; TEMP 97.7–98.8; O2SAT 97–100
[2024-05-25] VITALS (11 sets, daily range): BP systolic 126–150; BP diastolic 87–96; TEMP 97.9–98.4; O2SAT 93–100
[2024-05-25] MEDS ORDERED: DIATR MEGLU/DIATRIZOATE SODIUM 30 ML BOTTLE (GASTROGRAPHIN) ONE (01:08)
[2024-05-26] VITALS (12 sets, daily range): BP systolic 130–132; BP diastolic 78–82; TEMP 98.3–98.5; O2SAT 95–99
[2024-05-27] VITALS (12 sets, daily range): BP systolic 125–167; BP diastolic 65–92; TEMP 98.1–99.3; O2SAT 96–100
[2024-05-28] VITALS (11 sets, daily range): BP systolic 110–120; BP diastolic 76–83; TEMP 97.7–97.9; O2SAT 95–100
[2024-05-29] VITALS (13 sets, daily range): BP systolic 144; BP diastolic 98; TEMP 98.1; O2SAT 95–100
[2024-05-29] MEDS ORDERED: DIATR MEGLU/DIATRIZOATE SODIUM 30 ML BOTTLE (GASTROGRAPHIN) ONE ×2 (08:15→17:08)
[2024-05-29 12:47] LABS: ABG BASE EXCESS 5.6 mmol/L (-2.0-3.0); ABG OXYGEN SATURATION 95.2 % (94.0-98.0); ABG PH 7.455 (7.350-7.450); ABG TOTAL HEMOGLOBIN 13.7 G/dL (13.5-17.5); COHb 0.7 % (0.5-1.5); MetHb 0.3 % (0.0-1.5); O2Hb 94.2 % (94.0-97.0); SITE, ABG RIGHT BRACHIAL
[2024-05-30] VITALS (11 sets, daily range): BP systolic 120–135; BP diastolic 81–89; TEMP 98–99.2; O2SAT 96–99
[2024-05-31] VITALS (14 sets, daily range): BP systolic 101–140; BP diastolic 70–85; TEMP 98.2–99; O2SAT 96–100
[2024-05-31] MEDS: ACETAMINOPHEN 650 MG/20 ML UDC- SA PATIENTS-PAIN ONLY GT PRN (19:01)
[2024-06-01] VITALS (12 sets, daily range): BP systolic 104–136; BP diastolic 78–96; TEMP 98.4–99.7; O2SAT 94–100
[2024-06-02] VITALS (13 sets, daily range): BP systolic 130–143; BP diastolic 79–82; TEMP 97.7–99.2; O2SAT 97–100
[2024-06-03] VITALS (14 sets, daily range): BP systolic 106–143; BP diastolic 69–79; RESP 20; TEMP 98–98.3; O2SAT 96–100
[2024-06-04] VITALS (13 sets, daily range): BP systolic 108–129; BP diastolic 84–92; TEMP 98.4; O2SAT 94–100
[2024-06-05] VITALS (13 sets, daily range): BP systolic 116–140; BP diastolic 84–91; TEMP 97.9–98.4; O2SAT 96–100
[2024-06-06] VITALS (9 sets, daily range): BP systolic 157; BP diastolic 95; TEMP 98.6–101; O2SAT 95–99
[2024-06-06] MEDS: ACETAMINOPHEN 650 MG/20 ML UDC- SA PATIENTS-FEVER ONLY GT PRN (15:00)
[2024-06-07] MEDS ORDERED: FAMO20TA8 PO (02:45)
[2025-04-18] MEDS ORDERED: TUBERCULIN,PURIF.PROT.DERIV. 5 TU/0.1 ML DISP.SYRIN ID SCH (11:00)
== END 2024-06-12 16:00 | disposition short-term general hospital (02) | DRG 951 ==
LOC: SA 00:01
PROVIDERS: ADMIT Internal Medicine; ATTEND Internal Medicine
PROC: 0KBT0ZZ Excision of Left Lower Leg Muscle, Open Approach (ICD-10-PCS; principal; 2024-04-29)
PROC: 0KBT0ZZ Excision of Left Lower Leg Muscle, Open Approach (ICD-10-PCS; 2024-05-05)
PROC: 0KBT0ZZ Excision of Left Lower Leg Muscle, Open Approach (ICD-10-PCS; 2024-05-11)
PROC: 0KBT0ZZ Excision of Left Lower Leg Muscle, Open Approach (ICD-10-PCS; 2024-05-18)
PROC: 0JBL0ZZ Excision of Right Upper Leg Subcutaneous Tissue and Fascia, Open Approach (ICD-10-PCS; 2024-05-18)
PROC: 0KBT0ZZ Excision of Left Lower Leg Muscle, Open Approach (ICD-10-PCS; 2024-05-26)
PROC: 0KBT0ZZ Excision of Left Lower Leg Muscle, Open Approach (ICD-10-PCS; 2024-06-01)
PROC: 0JBL0ZZ Excision of Right Upper Leg Subcutaneous Tissue and Fascia, Open Approach (ICD-10-PCS; 2024-06-01)
DX: J96.11 Chronic respiratory failure with hypoxia (principal); G93.40 Encephalopathy, unspecified; L89.224 Pressure ulcer of left hip, stage 4; G93.1 Anoxic brain damage, not elsewhere classified; L89.213 Pressure ulcer of right hip, stage 3; F73 Profound intellectual disabilities; G80.0 Spastic quadriplegic cerebral palsy; M41.40 Neuromuscular scoliosis, site unspecified; G40.909 Epilepsy, unspecified, not intractable, without status epilepticus; G90.1 Familial dysautonomia [Riley-Day]; I10 Essential (primary) hypertension; K21.9 Gastro-esophageal reflux disease without esophagitis; L91.0 Hypertrophic scar; Z66 Do not resuscitate; Z93.0 Tracheostomy status; Z93.1 Gastrostomy status; M86.8X8 Other osteomyelitis, other site; Z87.440 Personal history of urinary (tract) infections; R13.10 Dysphagia, unspecified; R76.11 Nonspecific reaction to tuberculin skin test without active tuberculosis; Z86.16 Personal history of COVID-19
CPT/HCPCS: 31720; 36600; 71045-TC; 74018; 82803-TC; 86580-TC; 93307-TC; 94003-TC; 94640-TC; 94760-TC; 94762-TC; 94799-TC; A4217; A4623; A6253; A7526; J3490; J8597; Q9963

== ENCOUNTER 2024-06-06 17:09 | Inpatient (IN) | payer OTHER ==
[~2024-06-06] VITALS: Ht 152.4 cm; Wt 27.2 kg
[2024-06-06] MEDS: TRAMADOL HCL 50 MG TABLET GT SCH (00:28)
[2024-06-06] MEDS: IV NS 0.9% 1,000 ML BAG IV ONE (17:30)
[2024-06-06] MEDS ORDERED: ACETAMINOPHEN 650 MG/SUPP.RECT RC ONE (17:36)
[2024-06-06 17:38] LABS: BASOPHILS % (AUTO) 0.5 % (0.0-2.0); EOSINOPHILS # (AUTO) 0.1 K/uL (0.0-0.7); EOSINOPHILS % (AUTO) 0.7 % (0.0-6.0); HEMATOCRIT 43 % (39-51); LYMPHOCYTES # (AUTO) 1.2 K/uL (0.8-4.8); LYMPHOCYTES % (AUTO) 15.8 % (20.0-44.0); MEAN CORPUSCULAR HEMOGLOBIN 29 PG (26.0-33.0); MEAN CORPUSCULAR HGB CONC 33 g/dl (31.0-36.0); MEAN CORPUSCULAR VOLUME 87 fL (80-96); MONOCYTES # (AUTO) 0.3 K/uL (0.1-1.30); MONOCYTES % (AUTO) 3.7 % (2.0-12.0); NEUTROPHILS # (AUTO) 6.1 K/uL (1.8-8.9); NEUTROPHILS % (AUTO) 79.3 % (43.0-81.0); PLATELET COUNT (AUTO) 438 K/uL (150-450); RED BLOOD CELL COUNT(AUTO) 4.91 MIL/uL (4.5-6.0); RED CELL DISTRIBUTION WIDTH 16.5 % (11.5-15.0); WHITE BLOOD COUNT (AUTO) 7.6 K/uL (4.3-11.0)
[2024-06-06] MEDS: ACETAMINOPHEN 325 MG TABLET PO ONE (17:48)
[2024-06-06] MEDS: ACETAMINOPHEN 650 MG/SUPP.RECT RC ONE (17:48)
[2024-06-06 17:57] LABS: ABG BASE EXCESS 10.7 mmol/L (-2.0-3.0); ABG OXYGEN SATURATION 95.2 % (94.0-98.0); ABG PCO2 44.8 mmHg (35.0-48.0); ABG PH 7.511 (7.350-7.450); ABG PO2 72.2 mmHg (83.0-108.0); ABG TOTAL HEMOGLOBIN 14.7 G/dL (13.5-17.5); COHb 0.1 % (0.5-1.5); MetHb 0.1 % (0.0-1.5); SITE, ABG RIGHT FEMORAL
[2024-06-06 18:00] LABS: LACTIC ACID 1.9 mmol/L (0.4-2.0)
[2024-06-06 18:05] LABS: INR 1.18 (0.91-1.10); PROTHROMBIN TIME 12.4 SECS (9.2-11.1)
[2024-06-06 18:09] LABS: BILIRUBIN,DIRECT 0.2 mg/dL (0.0-0.2); BILIRUBIN,TOTAL 0.4 mg/dL (0.2-1.0); CALCIUM, SERUM 10.1 mg/dL (8.5-10.1); CREATININE 1.4 mg/dL (0.6-1.3); POTASSIUM 4.3 mmol/L (3.5-5.1); TOTAL PROTEIN, SERUM 10.7 g/dL (6.4-8.2)
[2024-06-06] MEDS: PIPERACILLIN /TAZOBACTAM 3.375 G in IV D5W 50 ML IV ONE (18:45)
[2024-06-06] MEDS: VANCOMYCIN 1 GM in IV D5W 250 ML IV ONE (19:00)
[2024-06-06] MEDS: IV LR 1000 ML 1,000 ML BAG IV ONE (19:15)
[2024-06-06 19:30] VITALS: O2SAT 98
[2024-06-06] MEDS ORDERED: KETOROLAC TROMETHAMINE 15 MG/ML VIAL ONE (19:44)
[2024-06-06] MEDS: KETOROLAC TROMETHAMINE 15 MG/ML VIAL IV ONE (19:46)
[2024-06-06 19:47] LABS: APPEARANCE,URINE CLOUDY (CLEAR); BILIRUBIN,URINE NEGATIVE (NEGATIVE); BLOOD, URINE 2+ Ery/uL (NEGATIVE); COLOR,URINE YELLOW (YELLOW); KETONES,URINE NEGATIVE (NEGATIVE); LEUKOCYTE ESTERASE ,URINE 2+ (NEGATIVE); NITRITE, URINE NEGATIVE (NEGATIVE); PROTEIN,URINE 2+ mg/dl (NEGATIVE); UGLUCOSE NEGATIVE (NEGATIVE); UROBILINOGEN,URINE 0.2 EU/dL (0.2)
[2024-06-06 20:13] LABS: ADD URINE CULTURE YES; BACTERIA,URINE 2+ /HPF (None Seen); RBC,URINE 21-50 /HPF (0-2); SQUAMOUS EPITHELIAL CELL,UR 0-2 /HPF (None Seen); WBC,URINE 21-50 /HPF (0-3)
[2024-06-06 20:14] LABS: YEAST,URINE Moderate /HPF (None Seen)
[2024-06-06 20:26] LABS: ABG BASE EXCESS 4.1 mmol/L (-2.0-3.0); ABG OXYGEN SATURATION 98.4 % (94.0-98.0); ABG PCO2 40.1 mmHg (35.0-48.0); ABG PH 7.464 (7.350-7.450); ABG TOTAL HEMOGLOBIN 12.2 G/dL (13.5-17.5); COHb 0.3 % (0.5-1.5); MetHb 0.2 % (0.0-1.5); O2Hb 97.9 % (94.0-97.0); SITE, ABG RIGHT RADIAL
[2024-06-06 21:16] VITALS: O2SAT 99
[2024-06-06] MEDS ORDERED: ONDANSETRON HCL/PF 4 MG/2 ML VIAL IVP PRN (23:00)
[2024-06-06] MEDS ORDERED: RIFAMPIN 300 MG CAPSULE GT SCH (23:00)
[2024-06-06] MEDS ORDERED: POLYETHYLENE GLYCOL 3350 17 GM POWD.PACK GT PRN (23:00)
[2024-06-06 23:10] VITALS: O2SAT 99
[2024-06-06] MEDS ORDERED: ACETAMINOPHEN 650 MG/20.3 ML UDC ONE (23:50)
[2024-06-06] MEDS: ACETAMINOPHEN 160 MG/5 ML PEG PRN (23:58)
[2024-06-07] VITALS (49 sets, daily range): BP systolic 104–144; BP diastolic 68–99; TEMP 100–105; O2SAT 78–100
[2024-06-07] MEDS ORDERED: TRAMADOL HCL 50 MG TABLET ONE (00:29)
[2024-06-07] MEDS ORDERED: MORPHINE SULFATE INJ 4 MG/ML DISP.SYRIN ONE (01:25)
[2024-06-07] MEDS ORDERED: GABAPENTIN 300 MG CAPSULE ONE (01:26)
[2024-06-07] MEDS ORDERED: CLONIDINE HCL 0.1 MG TABLET ONE (01:26)
[2024-06-07] MEDS: MORPHINE SULFATE INJ 4 MG/ML DISP.SYRIN IV ONE (01:29)
[2024-06-07] MEDS: IPRATROPIUM NEB FS 0.5 MG/2.5 ML AMPUL.NEB NEB SCH (01:30)
[2024-06-07] MEDS: GABAPENTIN 300 MG CAPSULE PEG ONE (01:38)
[2024-06-07] MEDS: CLONIDINE HCL 0.1 MG TABLET GT ONE (01:38)
[2024-06-07] MEDS ORDERED: FAMO20TA8 PO (02:45)
[2024-06-07] MEDS ORDERED: DIAZEPAM 5 MG/ML 2 ML DISP.SYRIN ONE (03:30)
[2024-06-07] MEDS: IV D5W 1,000 ML IV PRN (03:32)
[2024-06-07] MEDS: DIAZEPAM 5 MG/ML 2 ML DISP.SYRIN IV ONE (03:33)
[2024-06-07] MEDS ORDERED: METOCLOPRAMIDE HCL 10 MG/10 ML UDC GT SCH (05:00)
[2024-06-07] MEDS ORDERED: CEFEPIME 1 GM VIAL ONE (05:16)
[2024-06-07] MEDS: METOCLOPRAMIDE HCL 10 MG/2 ML VIAL IV SCH (05:29)
[2024-06-07] MEDS: CEFEPIME 2 GM in IV D5W 100 ML IV ONE (05:33)
[2024-06-07] MEDS: BUDESONIDE RESPULE INH 0.25 MG/2 ML AMPUL.NEB NEB SCH (08:07)
[2024-06-07] MEDS: BACLOFEN (10 MG) 10 MG TABLET GT SCH (08:23)
[2024-06-07] MEDS: FAMOTIDINE (20 MG) 20 MG TABLET GT SCH (08:23)
[2024-06-07] MEDS: VANCOMYCIN 500 MG in IV D5W 100ml IV SCH (08:27)
[2024-06-07] MEDS: INDOMETHACIN 25 MG CAPSULE PO SCH (08:41)
[2024-06-07] MEDS: PROPRANOLOL HCL 10 MG TABLET GT SCH (08:42)
[2024-06-07] MEDS ORDERED: BROMOCRIPTINE MESYLATE (2.5MG) 2.5 MG TABLET GT SCH (09:00)
[2024-06-07 10:09] LABS: BASOPHILS % (AUTO) 0.2 % (0.0-2.0); EOSINOPHILS % (AUTO) 0.3 % (0.0-6.0); HEMATOCRIT 33 % (39-51); HEMOGLOBIN 10.8 g/dL (13.5-17.5); LYMPHOCYTES # (AUTO) 1.4 K/uL (0.8-4.8); MEAN CORPUSCULAR HEMOGLOBIN 28 PG (26.0-33.0); MEAN CORPUSCULAR HGB CONC 33 g/dl (31.0-36.0); MEAN CORPUSCULAR VOLUME 87 fL (80-96); MONOCYTES # (AUTO) 1.4 K/uL (0.1-1.30); MONOCYTES % (AUTO) 16.7 % (2.0-12.0); NEUTROPHILS # (AUTO) 5.4 K/uL (1.8-8.9); NEUTROPHILS % (AUTO) 65.8 % (43.0-81.0); PLATELET COUNT (AUTO) 213 K/uL (150-450); RED BLOOD CELL COUNT(AUTO) 3.81 MIL/uL (4.5-6.0); RED CELL DISTRIBUTION WIDTH 15.7 % (11.5-15.0); WHITE BLOOD COUNT (AUTO) 8.3 K/uL (4.3-11.0)
[2024-06-07] MEDS: ACETAMINOPHEN 650 MG/20.3 ML UDC PEG PRN (10:09)
[2024-06-07 10:25] LABS: CALCIUM, SERUM 8.5 mg/dL (8.5-10.1); CREATININE 0.5 mg/dL (0.6-1.3); MAGNESIUM 2.4 mg/dL (1.8-2.4); PHOSPHORUS 2.7 mg/dL (2.5-4.9)
[2024-06-07] MEDS ORDERED: ENOXAPARIN SODIUM 30 MG/0.3 ML DISP.SYRIN SQ SCH (10:30)
[2024-06-07 10:42] LABS: POTASSIUM 2.8 mmol/L (3.5-5.1)
[2024-06-07] MEDS ORDERED: DOSE PER PHARMACY (MD SPECIFY MEDICATION) 1 EA IV PRN ×2 (11:00→15:30)
[2024-06-07] MEDS: POTASSIUM CL. PREMIX PERIPHER. 50 ML IV SCH (11:17)
[2024-06-07] MEDS: WATER FOR IRRIGATION STERILE IV ONE (12:01)
[2024-06-07] MEDS: DANTROLENE SODIUM IV ONE (12:01)
[2024-06-07] MEDS: DAKINS QUARTER STRENGTH (0.125%) 480 ML BOTTLE TOP SCH (12:10)
[2024-06-07] MEDS: THERAHONEY GEL 1.5 OZ TUBE TP SCH (12:10)
[2024-06-07] MEDS: CEFEPIME 2 GM in IV D5W 100 ML IV SCH (12:12)
[2024-06-07] MEDS: Z GUARD REMEDY 4 OZ OINT TP PRN (13:12)
[2024-06-07] MEDS: DANTROLENE SODIUM IV SCH (18:17)
[2024-06-07] MEDS: WATER FOR IRRIGATION STERILE IV SCH (18:17)
[2024-06-07 21:17] LABS: CALCIUM, SERUM 8.5 mg/dL (8.5-10.1); CREATININE 0.5 mg/dL (0.6-1.3); POTASSIUM 3.9 mmol/L (3.5-5.1)
[2024-06-07] MEDS: TAMSULOSIN 0.4 MG CAP.SR.24H GT SCH (21:47)
[2024-06-08] VITALS (32 sets, daily range): BP systolic 102–153; BP diastolic 75–109; TEMP 98.6–100.7; O2SAT 28–100
[2024-06-08 05:16] LABS: CALCIUM, SERUM 8.7 mg/dL (8.5-10.1); CREATININE 0.5 mg/dL (0.6-1.3); POTASSIUM 3.6 mmol/L (3.5-5.1)
[2024-06-08] MEDS: CLONIDINE HCL 0.1 MG TABLET PO SCH (08:21)
[2024-06-08] MEDS: ASCORBIC ACID 500 MG TABLET GT SCH (08:22)
[2024-06-08] MEDS: ACIDOPHILUS/BULGARICUS 1 EACH TAB.CHEW GT SCH (08:24)
[2024-06-08] MEDS ORDERED: DOSE PER PHARMACY (MD SPECIFY MEDICATION) 1 EA IV PRN (09:00)
[2024-06-08] MEDS: DIAZEPAM 2 MG TABLET GT PRN (09:43)
[2024-06-08] MEDS: BROMOCRIPTINE MESYLATE (2.5MG) 2.5 MG TABLET GT SCH (10:44)
[2024-06-08] MEDS: MORPHINE SULFATE IR 15 MG TABLET PO SCH (15:37)
[2024-06-08] MEDS: VANCOMYCIN 750 MG in IV D5W 250 ML IV SCH (16:57)
[2024-06-08] MEDS ORDERED: VANCOMYCIN 500 MG in IV D5W 100ml IV SCH (17:00)
[2024-06-08] MEDS: CLONIDINE HCL 0.1 MG TABLET GT SCH (21:51)
[2024-06-09] VITALS (37 sets, daily range): BP systolic 111–145; BP diastolic 77–99; TEMP 98.5–100.2; O2SAT 97–100
[2024-06-09] MEDS: diphenhydrAMINE HCL 50 MG/ML VIAL IV ONE (04:57)
[2024-06-09 05:05] LABS: CALCIUM, SERUM 8.7 mg/dL (8.5-10.1); CREATININE 0.5 mg/dL (0.6-1.3); POTASSIUM 3.4 mmol/L (3.5-5.1)
[2024-06-09 06:46] LABS: ABG BASE EXCESS 1.6 mmol/L (-2.0-3.0); ABG OXYGEN SATURATION 97.8 % (94.0-98.0); ABG PCO2 33.5 mmHg (35.0-48.0); ABG PH 7.483 (7.350-7.450); ABG PO2 97.2 mmHg (83.0-108.0); ABG TOTAL HEMOGLOBIN 12.8 G/dL (13.5-17.5); COHb 0.6 % (0.5-1.5); MetHb 0.1 % (0.0-1.5); O2Hb 97.1 % (94.0-97.0); SITE, ABG RIGHT BRACHIAL
[2024-06-09] MEDS: LEVALBUTEROL HCL NEB 1.25 MG/0.5 ML VIAL.NEB NEB PRN (07:21)
[2024-06-09] MEDS: IV D5/ 0.9% NACL 1,000 ML IV SCH (09:33)
[2024-06-09] MEDS: POTASSIUM CL. PREMIX PERIPHER. 50 ML IV SCH (09:51)
[2024-06-09] MEDS ORDERED: POTASSIUM CHLORIDE 20 MEQ POWDER PACKET NG SCH (10:00)
[2024-06-10] VITALS (41 sets, daily range): BP systolic 112–148; BP diastolic 71–110; TEMP 99.1–103.8; O2SAT 34–100
[2024-06-10 04:38] LABS: BASOPHILS % (AUTO) 0.3 % (0.0-2.0); EOSINOPHILS # (AUTO) 0.5 K/uL (0.0-0.7); EOSINOPHILS % (AUTO) 4.6 % (0.0-6.0); HEMATOCRIT 36 % (39-51); HEMOGLOBIN 11.6 g/dL (13.5-17.5); LYMPHOCYTES # (AUTO) 0.8 K/uL (0.8-4.8); LYMPHOCYTES % (AUTO) 8.3 % (20.0-44.0); MEAN CORPUSCULAR HEMOGLOBIN 29 PG (26.0-33.0); MEAN CORPUSCULAR HGB CONC 33 g/dl (31.0-36.0); MEAN CORPUSCULAR VOLUME 87 fL (80-96); MONOCYTES # (AUTO) 0.6 K/uL (0.1-1.30); MONOCYTES % (AUTO) 5.4 % (2.0-12.0); NEUTROPHILS # (AUTO) 8.3 K/uL (1.8-8.9); NEUTROPHILS % (AUTO) 81.4 % (43.0-81.0); PLATELET COUNT (AUTO) 272 K/uL (150-450); RED BLOOD CELL COUNT(AUTO) 4.08 MIL/uL (4.5-6.0); RED CELL DISTRIBUTION WIDTH 15.3 % (11.5-15.0); WHITE BLOOD COUNT (AUTO) 10.2 K/uL (4.3-11.0)
[2024-06-10 04:57] LABS: CALCIUM, SERUM 8.9 mg/dL (8.5-10.1); CREATININE 0.5 mg/dL (0.6-1.3); MAGNESIUM 2.2 mg/dL (1.8-2.4); PHOSPHORUS 3.3 mg/dL (2.5-4.9); POTASSIUM 3.1 mmol/L (3.5-5.1)
[2024-06-10] MEDS ORDERED: POTASSIUM CHLORIDE 20 MEQ TAB.PRT.SR PO SCH (12:00)
[2024-06-10] MEDS: POTASSIUM CL. PREMIX PERIPHER. 50 ML IV SCH (12:27)
[2024-06-10] MEDS: MORPHINE SULFATE INJ 4 MG/ML DISP.SYRIN IV PRN (13:07)
[2024-06-10] MEDS: BROMOCRIPTINE MESYLATE (2.5MG) 2.5 MG TABLET GT SCH (13:07)
[2024-06-10] MEDS: PRECEDEX 400 MCG/100 ML BOTTLE 100 ML IV PRN (13:26)
[2024-06-10] MEDS: VANCOMYCIN 500 MG in IV D5W 100ml IV SCH (17:16)
[2024-06-10] MEDS: ACETAMINOPHEN 650 MG/SUPP.RECT RC PRN (22:30)
[2024-06-11] VITALS (49 sets, daily range): BP systolic 91–164; BP diastolic 51–111; TEMP 98.4–103; O2SAT 94–100
[2024-06-11 05:17] LABS: BASOPHILS # (AUTO) 0.1 K/uL (0.0-0.2); BASOPHILS % (AUTO) 0.6 % (0.0-2.0); EOSINOPHILS # (AUTO) 0.1 K/uL (0.0-0.7); HEMATOCRIT 29 % (39-51); HEMOGLOBIN 9.5 g/dL (13.5-17.5); LYMPHOCYTES # (AUTO) 1.2 K/uL (0.8-4.8); LYMPHOCYTES % (AUTO) 11.1 % (20.0-44.0); MEAN CORPUSCULAR HEMOGLOBIN 29 PG (26.0-33.0); MEAN CORPUSCULAR HGB CONC 33 g/dl (31.0-36.0); MEAN CORPUSCULAR VOLUME 87 fL (80-96); MONOCYTES # (AUTO) 0.8 K/uL (0.1-1.30); MONOCYTES % (AUTO) 7.8 % (2.0-12.0); NEUTROPHILS # (AUTO) 8.5 K/uL (1.8-8.9); NEUTROPHILS % (AUTO) 79.5 % (43.0-81.0); PLATELET COUNT (AUTO) 232 K/uL (150-450); RED BLOOD CELL COUNT(AUTO) 3.31 MIL/uL (4.5-6.0); RED CELL DISTRIBUTION WIDTH 15.2 % (11.5-15.0); WHITE BLOOD COUNT (AUTO) 10.7 K/uL (4.3-11.0)
[2024-06-11 05:21] LABS: CALCIUM, SERUM 8.7 mg/dL (8.5-10.1); CREATININE 0.3 mg/dL (0.6-1.3); MAGNESIUM 2.2 mg/dL (1.8-2.4); PHOSPHORUS 1.8 mg/dL (2.5-4.9); POTASSIUM 3.1 mmol/L (3.5-5.1)
[2024-06-11] MEDS ORDERED: IV D5/ 0.9% NACL 1,000 ML IV PRN (08:33)
[2024-06-11 08:46] LABS: ABG BASE EXCESS -1.7 mmol/L (-2.0-3.0); ABG OXYGEN SATURATION 94.8 % (94.0-98.0); ABG PCO2 34.2 mmHg (35.0-48.0); ABG PH 7.428 (7.350-7.450); ABG PO2 71.3 mmHg (83.0-108.0); ABG TOTAL HEMOGLOBIN 11.3 G/dL (13.5-17.5); COHb 0.4 % (0.5-1.5); MetHb 0.1 % (0.0-1.5); O2Hb 94.3 % (94.0-97.0); SITE, ABG RIGHT BRACHIAL
[2024-06-11] MEDS: WATER FOR IRRIGATION STERILE IV PRN (10:20)
[2024-06-11] MEDS: DANTROLENE SODIUM IV PRN (10:20)
[2024-06-11] MEDS: POTASSIUM CL. PREMIX PERIPHER. 50 ML IV SCH (11:06)
[2024-06-11] MEDS: IV D5W 1,000 ML IV PRN (11:42)
[2024-06-11] MEDS ORDERED: WATER FOR IRRIGATION STERILE IV PRN (11:52)
[2024-06-11] MEDS ORDERED: DANTROLENE SODIUM IV PRN (11:52)
[2024-06-11] MEDS ORDERED: WATER FOR IRRIGATION STERILE IV SCH ×2 (11:56→16:00)
[2024-06-11] MEDS ORDERED: DANTROLENE SODIUM IV SCH ×2 (11:56→16:00)
[2024-06-11] MEDS: GABAPENTIN 300 MG CAPSULE NG SCH (12:34)
[2024-06-11] MEDS: Sodium Phosphate 15 MMOL in IV NS 0.9% 245 ML IV SCH (17:03)
[2024-06-11] MEDS: WATER FOR IRRIGATION STERILE IV SCH (17:40)
[2024-06-11] MEDS: DANTROLENE SODIUM IV SCH (17:40)
[2024-06-12] VITALS (49 sets, daily range): BP systolic 99–144; BP diastolic 51–114; TEMP 97.4–101.3; O2SAT 90–100
[2024-06-12 05:19] LABS: BASOPHILS # (AUTO) 0.1 K/uL (0.0-0.2); BASOPHILS % (AUTO) 0.7 % (0.0-2.0); EOSINOPHILS # (AUTO) 0.2 K/uL (0.0-0.7); EOSINOPHILS % (AUTO) 2.3 % (0.0-6.0); HEMATOCRIT 28 % (39-51); HEMOGLOBIN 9.3 g/dL (13.5-17.5); LYMPHOCYTES # (AUTO) 1.5 K/uL (0.8-4.8); LYMPHOCYTES % (AUTO) 16.9 % (20.0-44.0); MEAN CORPUSCULAR HEMOGLOBIN 29 PG (26.0-33.0); MEAN CORPUSCULAR HGB CONC 34 g/dl (31.0-36.0); MEAN CORPUSCULAR VOLUME 87 fL (80-96); MONOCYTES # (AUTO) 0.9 K/uL (0.1-1.30); MONOCYTES % (AUTO) 9.5 % (2.0-12.0); NEUTROPHILS # (AUTO) 6.4 K/uL (1.8-8.9); NEUTROPHILS % (AUTO) 70.6 % (43.0-81.0); PLATELET COUNT (AUTO) 263 K/uL (150-450); RED CELL DISTRIBUTION WIDTH 15.5 % (11.5-15.0)
[2024-06-12 05:34] LABS: CALCIUM, SERUM 8.9 mg/dL (8.5-10.1); CREATININE 0.4 mg/dL (0.6-1.3); MAGNESIUM 2.2 mg/dL (1.8-2.4); PHOSPHORUS 2.3 mg/dL (2.5-4.9); POTASSIUM 3.8 mmol/L (3.5-5.1)
[2024-06-12] MEDS: NEUTRA PHOS 1 POWD.PACKET NG ONE (15:29)
[2024-06-12] MEDS: IV NS 0.9% 250 ML IV PRN (21:02)
[2024-06-13] VITALS (35 sets, daily range): BP systolic 87–163; BP diastolic 60–144; TEMP 97.8–98.7; O2SAT 91–100
[2024-06-13 05:50] LABS: CALCIUM, SERUM 8.6 mg/dL (8.5-10.1); CREATININE 0.2 mg/dL (0.6-1.3); POTASSIUM 3.3 mmol/L (3.5-5.1)
[2024-06-13] MEDS: POTASSIUM CL. PREMIX PERIPHER. 50 ML IV SCH (10:21)
[2024-06-13] MEDS: VANCOMYCIN 750 MG in IV D5W 250 ML IV SCH (14:10)
[2024-06-13] MEDS: BACLOFEN (10 MG) 10 MG TABLET GT SCH (15:15)
[2024-06-13] MEDS: GABAPENTIN 300 MG CAPSULE NG SCH (15:15)
[2024-06-13] MEDS: BROMOCRIPTINE MESYLATE (2.5MG) 2.5 MG TABLET GT SCH (15:17)
[2024-06-13] MEDS: DAKINS QUARTER STRENGTH (0.125%) 480 ML BOTTLE TOP SCH (15:17)
[2024-06-13] MEDS: DANTROLENE SODIUM 25 MG CAPSULE NG SCH (17:20)
[2024-06-13] MEDS ORDERED: DANTROLENE SODIUM 25 MG CAPSULE GT SCH (18:00)
[2024-06-13] MEDS: DIAZEPAM 2 MG TABLET GT PRN (18:41)
[2024-06-13] MEDS: ASCORBIC ACID 500 MG TABLET GT SCH (21:07)
[2024-06-14] VITALS (37 sets, daily range): BP systolic 99–143; BP diastolic 66–97; TEMP 97.9–99; O2SAT 90–100
[2024-06-14 04:43] LABS: CALCIUM, SERUM 8.9 mg/dL (8.5-10.1); CREATININE 0.2 mg/dL (0.6-1.3)
[2024-06-14 04:50] LABS: POTASSIUM 2.8 mmol/L (3.5-5.1)
[2024-06-14] MEDS: POTASSIUM CL. PREMIX PERIPHER. 50 ML IV SCH (06:31)
[2024-06-14 15:31] LABS: CREATININE 0.4 mg/dL (0.6-1.3); POTASSIUM 3.5 mmol/L (3.5-5.1)
[2024-06-15] VITALS (44 sets, daily range): BP systolic 99–150; BP diastolic 58–127; TEMP 97.8–98.9; O2SAT 89–100
[2024-06-15 04:11] LABS: CALCIUM, SERUM 9.1 mg/dL (8.5-10.1); CREATININE 0.3 mg/dL (0.6-1.3); POTASSIUM 3.2 mmol/L (3.5-5.1)
[2024-06-15] MEDS: POTASSIUM CHLORIDE 20 MEQ POWDER PACKET NG SCH (10:15)
[2024-06-15] MEDS: DANTROLENE SODIUM 25 MG CAPSULE NG SCH (18:36)
[2024-06-15] MEDS: MEROPENEM 500MG/NS 50 ML PB IV ONE (21:43)
[2024-06-15] MEDS: MEROPENEM 500 MG in IV NS 0.9% 50 ML IV SCH (21:44)
[2024-06-16] VITALS (32 sets, daily range): BP systolic 96–136; BP diastolic 63–101; TEMP 98.1–99.1; O2SAT 91–100
[2024-06-16] MEDS: MEROPENEM 500 MG in IV NS 0.9% 50 ML IV SCH (08:53)
[2024-06-16 10:14] LABS: CALCIUM, SERUM 8.7 mg/dL (8.5-10.1); CREATININE 0.3 mg/dL (0.6-1.3); POTASSIUM 3.5 mmol/L (3.5-5.1)
[2024-06-16] MEDS: JEVITY 1.5 CAL LIQUID 1,000 ML BOTTLE GT PRN (18:03)
[2024-06-17] VITALS (29 sets, daily range): BP systolic 85–138; BP diastolic 56–91; TEMP 98.1–98.6; O2SAT 90–100
[2024-06-17 05:27] LABS: CALCIUM, SERUM 8.6 mg/dL (8.5-10.1); CREATININE 0.4 mg/dL (0.6-1.3); POTASSIUM 2.9 mmol/L (3.5-5.1)
[2024-06-17] MEDS ORDERED: POTASSIUM CHLORIDE 10 MEQ/50 ML PREMIXED IVPB FOR PERIPHERAL LINE IV ONE (07:00)
[2024-06-17] MEDS ORDERED: POTASSIUM CHLORIDE 20 MEQ POWDER PACKET GT ONE (07:00)
[2024-06-17] MEDS: POTASSIUM CHLORIDE 10 MEQ/50 ML PREMIXED IVPB FOR PERIPHERAL LINE IV SCH (07:25)
[2024-06-17] MEDS: NYSTATIN OINT 100000 UNIT/G 15 GM TUBE TP SCH (13:30)
[2024-06-17 13:39] LABS: CALCIUM, SERUM 8.9 mg/dL (8.5-10.1); CREATININE 0.4 mg/dL (0.6-1.3); POTASSIUM 3.4 mmol/L (3.5-5.1)
[2024-06-17] MEDS: IV D5/ 0.9% NACL 1,000 ML IV SCH (15:05)
[2024-06-18] VITALS (14 sets, daily range): BP systolic 96–136; BP diastolic 59–95; TEMP 97.7–98.1; O2SAT 95–100
[2024-06-18 07:50] LABS: CALCIUM, SERUM 8.8 mg/dL (8.5-10.1); CREATININE 0.5 mg/dL (0.6-1.3); POTASSIUM 3.2 mmol/L (3.5-5.1)
[2024-06-18] MEDS: POTASSIUM CHLORIDE 20 MEQ POWDER PACKET NG SCH (10:56)
[2024-06-19] VITALS (14 sets, daily range): BP systolic 111–141; BP diastolic 68–90; TEMP 97.9–98.6; O2SAT 96–100
[2024-06-19 08:03] LABS: CALCIUM, SERUM 8.8 mg/dL (8.5-10.1); CREATININE 0.4 mg/dL (0.6-1.3)
[2024-06-19] MEDS ORDERED: POTASSIUM CHLORIDE 20 MEQ POWDER PACKET NG SCH (10:30)
[2024-06-19] MEDS: POTASSIUM CL. PREMIX PERIPHER. 50 ML IV SCH (11:05)
[2024-06-20] VITALS (14 sets, daily range): BP systolic 106–146; BP diastolic 80–91; TEMP 97.8–102; O2SAT 96–100
[2024-06-20] MEDS: IV D5/ 0.9% NACL 1,000 ML IV PRN (03:16)
[2024-06-20 08:15] LABS: CALCIUM, SERUM 8.7 mg/dL (8.5-10.1); CREATININE 0.5 mg/dL (0.6-1.3)
[2024-06-20 08:24] LABS: POTASSIUM 3.3 mmol/L (3.5-5.1)
[2024-06-20] MEDS ORDERED: DIATR MEGLU/DIATRIZOATE SODIUM 30 ML BOTTLE (GASTROGRAPHIN) ONE (09:32)
[2024-06-20] MEDS: POTASSIUM CHLORIDE 20 MEQ POWDER PACKET NG SCH (14:35)
[2024-06-20] MEDS: CLOTRIMAZOLE/BETAMETASONE DIPROPIONATE 15 GM TUBE TP SCH (16:19)
[2024-06-20] MEDS ORDERED: VANCOMYCIN 1 GM /D5W 250 ML PB IV ONE (21:41)
[2024-06-20] MEDS: VANCOMYCIN 750 MG in IV D5W 250 ML IV ONE (21:47)
[2024-06-21] VITALS (12 sets, daily range): BP systolic 108–133; BP diastolic 80–98; TEMP 97.5–99; O2SAT 94–100
[2024-06-21] MEDS ORDERED: IV D5W 1,000 ML IV PRN (07:00)
[2024-06-21] MEDS ORDERED: BUDESONIDE RESPULE INH 0.25 MG/2 ML AMPUL.NEB NEB SCH (08:00)
[2024-06-21 08:48] LABS: CALCIUM, SERUM 8.5 mg/dL (8.5-10.1); CREATININE 0.5 mg/dL (0.6-1.3); POTASSIUM 3.1 mmol/L (3.5-5.1)
[2024-06-21] MEDS: VANCOMYCIN 750 MG in IV D5W 250 ML IV SCH (09:12)
[2024-06-21] MEDS ORDERED: TPN/PPN PER PHARMACY IV PRN (10:30)
[2024-06-21] MEDS: POTASSIUM CL. PREMIX PERIPHER. 50 ML IV SCH (12:04)
[2024-06-21] MEDS: TPN #1 IV SCH (14:32)
[2024-06-21 14:48] LABS: BASOPHILS # (AUTO) 0.1 K/uL (0.0-0.2); BASOPHILS % (AUTO) 0.7 % (0.0-2.0); EOSINOPHILS # (AUTO) 0.1 K/uL (0.0-0.7); EOSINOPHILS % (AUTO) 0.7 % (0.0-6.0); HEMATOCRIT 30 % (39-51); HEMOGLOBIN 9.9 g/dL (13.5-17.5); LYMPHOCYTES # (AUTO) 1.2 K/uL (0.8-4.8); LYMPHOCYTES % (AUTO) 14.5 % (20.0-44.0); MEAN CORPUSCULAR HEMOGLOBIN 28 PG (26.0-33.0); MEAN CORPUSCULAR HGB CONC 33 g/dl (31.0-36.0); MEAN CORPUSCULAR VOLUME 86 fL (80-96); MONOCYTES % (AUTO) 11.6 % (2.0-12.0); NEUTROPHILS # (AUTO) 6.2 K/uL (1.8-8.9); NEUTROPHILS % (AUTO) 72.5 % (43.0-81.0); PLATELET COUNT (AUTO) 433 K/uL (150-450); RED BLOOD CELL COUNT(AUTO) 3.52 MIL/uL (4.5-6.0); RED CELL DISTRIBUTION WIDTH 16.7 % (11.5-15.0); WHITE BLOOD COUNT (AUTO) 8.5 K/uL (4.3-11.0)
[2024-06-21] MEDS: IV D5W 1,000 ML IV SCH (14:52)
[2024-06-21] MEDS ORDERED: INSULIN REGULAR, HUMAN 100 UNIT/ML 3 ML VIAL SQ PRN (15:00)
[2024-06-21] MEDS ORDERED: DEXTROSE 50%-WATER 50 ML DISP.SYRIN IV PRN (15:00)
[2024-06-21 15:05] LABS: MAGNESIUM 1.9 mg/dL (1.8-2.4)
[2024-06-21] MEDS: BLOOD SUGAR DIAGNOSTIC 1 EACH STRIP IN SCH (18:20)
[2024-06-22] VITALS (9 sets, daily range): BP systolic 92–101; BP diastolic 66–77; TEMP 97.5–98.1; O2SAT 96–100
[2024-06-22] MEDS: INSULIN REGULAR, HUMAN 100 UNIT/ML 3 ML VIAL SQ PRN (00:26)
[2024-06-22 08:04] LABS: BASOPHILS % (AUTO) 0.6 % (0.0-2.0); EOSINOPHILS # (AUTO) 0.2 K/uL (0.0-0.7); EOSINOPHILS % (AUTO) 2.5 % (0.0-6.0); HEMATOCRIT 27 % (39-51); HEMOGLOBIN 8.8 g/dL (13.5-17.5); LYMPHOCYTES # (AUTO) 1.2 K/uL (0.8-4.8); MEAN CORPUSCULAR HEMOGLOBIN 28 PG (26.0-33.0); MEAN CORPUSCULAR HGB CONC 32 g/dl (31.0-36.0); MEAN CORPUSCULAR VOLUME 87 fL (80-96); MONOCYTES # (AUTO) 0.6 K/uL (0.1-1.30); MONOCYTES % (AUTO) 8.7 % (2.0-12.0); NEUTROPHILS # (AUTO) 4.9 K/uL (1.8-8.9); NEUTROPHILS % (AUTO) 71.2 % (43.0-81.0); PLATELET COUNT (AUTO) 373 K/uL (150-450); RED BLOOD CELL COUNT(AUTO) 3.15 MIL/uL (4.5-6.0); RED CELL DISTRIBUTION WIDTH 16.4 % (11.5-15.0); WHITE BLOOD COUNT (AUTO) 6.9 K/uL (4.3-11.0)
[2024-06-22 08:40] LABS: CALCIUM, SERUM 7.7 mg/dL (8.5-10.1); CREATININE 0.4 mg/dL (0.6-1.3); MAGNESIUM 1.7 mg/dL (1.8-2.4); PHOSPHORUS 2.4 mg/dL (2.5-4.9)
[2024-06-22 08:52] LABS: POTASSIUM 2.6 mmol/L (3.5-5.1)
[2024-06-22] MEDS: POTASSIUM CHLORIDE 20 MEQ POWDER PACKET GT ONE ×2 (09:59→12:18)
[2024-06-22] MEDS: POTASSIUM PHOSPHATE MM 7.5 MMOL in IV NS 0.9% 100 ML IV SCH (10:11)
[2024-06-22] MEDS: Magnesium 1GM/D5W 100ML PREMIX 100 ML IV SCH (10:22)
[2024-06-22] MEDS ORDERED: MERO500V23 IV (11:51)
[2024-06-22 17:08] LABS: CALCIUM, SERUM 8.1 mg/dL (8.5-10.1); CREATININE 0.3 mg/dL (0.6-1.3); POTASSIUM 3.6 mmol/L (3.5-5.1)
== END 2024-06-22 17:56 | DRG 951 ==
LOC: ER 17:12 → TELE1 23:57 → ICU 06-07 01:34 → TELE-TD 06-17 15:33 → TELE1 06-20 09:31
PROVIDERS: ADMIT Nurse Practitioner Family; ATTEND Student in an Organized Health Care Education/Training Program
PROC: 02HV33Z Insertion of Infusion Device into Superior Vena Cava, Percutaneous Approach (ICD-10-PCS; 2024-06-06)
PROC: B548ZZA Ultrasonography of Superior Vena Cava, Guidance (ICD-10-PCS; 2024-06-06)
PROC: 0QB30ZZ Excision of Left Pelvic Bone, Open Approach (ICD-10-PCS; principal; 2024-06-09)
PROC: 0JBL0ZZ Excision of Right Upper Leg Subcutaneous Tissue and Fascia, Open Approach (ICD-10-PCS; 2024-06-16)
PROC: 0QB30ZZ Excision of Left Pelvic Bone, Open Approach (ICD-10-PCS; 2024-06-16)
PROC: 0JBL0ZZ Excision of Right Upper Leg Subcutaneous Tissue and Fascia, Open Approach (ICD-10-PCS; 2024-06-16)
DX: K94.22 Gastrostomy infection (principal); J96.20 Acute and chronic respiratory failure, unspecified whether with hypoxia or hypercapnia; N17.0 Acute kidney failure with tubular necrosis; A41.9 Sepsis, unspecified organism; G93.41 Metabolic encephalopathy; L89.213 Pressure ulcer of right hip, stage 3; J15.69 Pneumonia due to other Gram-negative bacteria; L89.224 Pressure ulcer of left hip, stage 4; Z99.11 Dependence on respirator [ventilator] status; Z93.0 Tracheostomy status; G40.909 Epilepsy, unspecified, not intractable, without status epilepticus; N39.0 Urinary tract infection, site not specified; L03.311 Cellulitis of abdominal wall; Y83.3 Surgical operation with formation of external stoma as the cause of abnormal reaction of the patient, or of later complication, without mention of misadventure at the time of the procedure; D64.9 Anemia, unspecified; E86.0 Dehydration; E87.6 Hypokalemia; Z20.822 Contact with and (suspected) exposure to COVID-19; B96.4 Proteus (mirabilis) (morganii) as the cause of diseases classified elsewhere; M41.40 Neuromuscular scoliosis, site unspecified; R13.10 Dysphagia, unspecified; Z66 Do not resuscitate; G90.1 Familial dysautonomia [Riley-Day]; G80.0 Spastic quadriplegic cerebral palsy; E87.0 Hyperosmolality and hypernatremia; I10 Essential (primary) hypertension; B96.89 Other specified bacterial agents as the cause of diseases classified elsewhere; H61.891 Other specified disorders of right external ear; Y73.8 Miscellaneous gastroenterology and urology devices associated with adverse incidents, not elsewhere classified; Y92.129 Unspecified place in nursing home as the place of occurrence of the external cause; K21.9 Gastro-esophageal reflux disease without esophagitis; E83.9 Disorder of mineral metabolism, unspecified; G90.89 Other disorders of autonomic nervous system
CPT/HCPCS: 31720; 36415; 36600; 38221; 70450-TC; 71045-TC; 74018; 80048-TC; 80076-TC; 80202-TC; 81001; 82272-TC; 82550-TC; 82553; 82803-TC; 82962-TC; 83605-TC; 83735-TC; 84100-TC; 84443-TC; 84478-TC; 84484-TC; 85025-TC; 85730-TC; 87040-TC; 87081-TC; 94002-TC; 94640-TC; 94760-TC; 94762-TC; 94799-TC; A4217; A4223; A6253; A6403; A7526; A9563; G0378; J0692; J1200; J1815; J1885; J2185; J2270; J2543; J2765; J3360; J3370; J3371; J3475; J3480; J3490; J7030; J7042; J7050; J7060; J7070; J7120; Q9963

== ENCOUNTER 2024-06-22 14:57 | Inpatient (IN) | payer OTHER ==
[~2024-06-22] VITALS: Ht 134.6 cm; Wt 35.8 kg
[~2024-06-22 14:57] MED LIST changes: +FAMO20TA8 PO; -HONE44PA TP; +MERO500V23 IV
[2024-06-22 19:46] VITALS: O2SAT 96
[2024-06-22] MEDS ORDERED: ACETAMINOPHEN 650 MG/20.3 ML UDC GT PRN (20:00)
[2024-06-22] MEDS: BROMOCRIPTINE MESYLATE (2.5MG) 2.5 MG TABLET GT SCH (20:30)
[2024-06-22] MEDS: BACLOFEN (10 MG) 10 MG TABLET GT SCH (20:30)
[2024-06-22] MEDS: GABAPENTIN 300 MG CAPSULE GT SCH (20:30)
[2024-06-22] MEDS: ASCORBIC ACID 500 MG TABLET GT SCH (20:30)
[2024-06-22] MEDS ORDERED: POLYETHYLENE GLYCOL 3350 17 GM POWD.PACK GT PRN (20:30)
[2024-06-22] MEDS: FAMOTIDINE (20 MG) 20 MG TABLET GT SCH (21:00)
[2024-06-22] MEDS: MEROPENEM 500 MG in IV NS 0.9% 50 ML IV SCH (21:22)
[2024-06-22] MEDS: CLONIDINE HCL 0.1 MG TABLET GT SCH (22:00)
[2024-06-22] MEDS: TAMSULOSIN 0.4 MG CAP.SR.24H GT SCH (22:02)
[2024-06-22] MEDS ORDERED: MEROPENEM 500 MG VIAL IV ONE (22:23)
[2024-06-22 23:38] VITALS: O2SAT 98
[2024-06-23] VITALS (11 sets, daily range): BP systolic 87–132; BP diastolic 66–84; TEMP 97.2–97.9; O2SAT 97–100
[2024-06-23] MEDS ORDERED: JEVITY 1.2 CAL 1,000 ML BOTTLE GT PRN (07:30)
[2024-06-23] MEDS ORDERED: HYDROGEN PEROXIDE 480 ML BOTTLE TP PRN (07:30)
[2024-06-23] MEDS: RIFAMPIN 300 MG CAPSULE GT SCH (09:00)
[2024-06-23] MEDS: INDOMETHACIN 50 MG CAPSULE GT SCH (09:00)
[2024-06-23] MEDS: ACIDOPHILUS/BULGARICUS 1 EACH TAB.CHEW GT SCH (09:00)
[2024-06-23] MEDS: CLONIDINE HCL 0.1 MG TABLET GT SCH (09:00)
[2024-06-23] MEDS: PROPRANOLOL HCL 10 MG TABLET GT SCH (09:00)
[2024-06-23] MEDS: HYDROGEN PEROXIDE 480 ML BOTTLE TP SCH (09:32)
[2024-06-23] MEDS: DAKINS QUARTER STRENGTH (0.125%) 480 ML BOTTLE TOP SCH (13:00)
[2024-06-23] MEDS: THERAHONEY GEL 1.5 OZ TUBE TP SCH (13:00)
[2024-06-23] MEDS ORDERED: ACETAMINOPHEN 650 MG/20 ML UDC- SA PATIENTS-FEVER ONLY GT PRN (16:00)
[2024-06-23] MEDS: IV NS 0.9% 1,000 ML IV ONE (20:30)
[2024-06-23] MEDS: BACI/NEOM/POLY B OINT PKT 1 UDPKT PACKET TP SCH (21:25)
[2024-06-23] MEDS: ZINC SULFATE 220 MG CAPSULE GT SCH (21:26)
[2024-06-24] VITALS (12 sets, daily range): BP systolic 111–120; BP diastolic 86–90; TEMP 97.6–98.6; O2SAT 98–100
[2024-06-24] MEDS: TRAMADOL HCL 50 MG TABLET GT PRN (01:49)
[2024-06-24] MEDS: JEVITY 1.5 CAL LIQUID 1,000 ML BOTTLE GT PRN (04:48)
[2024-06-24] MEDS: BUDESONIDE RESPULE INH 0.5 MG/2 ML AMPUL.NEB HHN SCH (08:20)
[2024-06-24] MEDS: DAKINS QUARTER STRENGTH (0.125%) 480 ML BOTTLE TOP SCH (10:00)
[2024-06-24] MEDS: PROSOURCE / PROSTAT (PYXIS) 30 ML UDC GT SCH (10:00)
[2024-06-24] MEDS: MULTIVIT W/MINERALS 1 TAB TABLET GT SCH (10:00)
[2024-06-24] MEDS ORDERED: DIATR MEGLU/DIATRIZOATE SODIUM 30 ML BOTTLE (GASTROGRAPHIN) ONE (16:18)
[2024-06-25] VITALS (11 sets, daily range): BP systolic 111–126; BP diastolic 79–86; TEMP 97.7–98.6; O2SAT 98–100
[2024-06-25] MEDS: POVIDONE-IODINE OINT 28.4 GM TUBE TP SCH (09:00)
[2024-06-25] MEDS: THERAHONEY GEL 1.5 OZ TUBE TP SCH (09:00)
[2024-06-25] MEDS ORDERED: HONE44PA TP (18:58)
[2024-06-26] VITALS (12 sets, daily range): BP systolic 111–128; BP diastolic 77–84; TEMP 98.2–98.6; O2SAT 95–100
[2024-06-27] VITALS (9 sets, daily range): BP systolic 108–116; BP diastolic 83–86; TEMP 98.6–98.8; O2SAT 97–100
[2024-06-28] VITALS (11 sets, daily range): BP systolic 110–122; BP diastolic 77–87; TEMP 98.6–99.1; O2SAT 96–100
[2024-06-29] VITALS (9 sets, daily range): BP systolic 101–124; BP diastolic 65–84; TEMP 98.2–98.6; O2SAT 95–100
[2024-06-29] MEDS ORDERED: DAKINS QUARTER STRENGTH (0.125%) 480 ML BOTTLE TOP PRN (15:30)
[2024-06-29] MEDS ORDERED: ZINC OXIDE 30 GM TUBE TP PRN (15:30)
[2024-06-30] VITALS (11 sets, daily range): BP systolic 108–130; BP diastolic 63–95; TEMP 98.4–99; O2SAT 96–100
[2024-06-30] MEDS: DAKINS QUARTER STRENGTH (0.125%) 480 ML BOTTLE TOP SCH (09:02)
[2024-06-30] MEDS: ZINC OXIDE 30 GM TUBE TP SCH (09:03)
[2024-06-30] MEDS: MEROPENEM 500 MG in IV NS 0.9% 50 ML IV SCH (13:00)
[2024-06-30] MEDS: LORAZEPAM 1 MG TABLET GT PRN (13:06)
[2024-06-30] MEDS ORDERED: MERO500V23 IV (19:16)
[2024-07-01] VITALS (10 sets, daily range): BP systolic 144–149; BP diastolic 89–97; TEMP 98.2–98.8; O2SAT 97–100
[2024-07-02] VITALS (10 sets, daily range): BP systolic 135–139; BP diastolic 82–94; TEMP 97.9–98.4; O2SAT 97–100
[2024-07-02] MEDS: ARGININE/GLUTAMINE/CALCIUM BMB 1 EACH POWD.PACK GT SCH (16:45)
[2024-07-02] MEDS: BUDESONIDE RESPULE INH 0.5 MG/2 ML AMPUL.NEB HHN SCH (19:39)
[2024-07-03] VITALS (11 sets, daily range): BP systolic 141–155; BP diastolic 90–96; TEMP 97.9–98.2; O2SAT 97–100
[2024-07-03] MEDS: JEVITY 1.5 CAL LIQUID 1,000 ML BOTTLE GT PRN (05:31)
[2024-07-03] MEDS: ACETAMINOPHEN 650 MG/20 ML UDC- SA PATIENTS-PAIN ONLY GT PRN (18:40)
[2024-07-04] VITALS (12 sets, daily range): BP systolic 101–122; BP diastolic 65–88; TEMP 98.1–98.6; O2SAT 97–100
[2024-07-05] VITALS (10 sets, daily range): BP systolic 115–126; BP diastolic 70–76; TEMP 96–98; O2SAT 95–100
[2024-07-06] VITALS (8 sets, daily range): BP systolic 122–135; BP diastolic 74–93; TEMP 98.1; O2SAT 99–100
[2024-07-06 21:39] LABS: EOSINOPHILS # (AUTO) 0.4 K/uL (0.0-0.7); EOSINOPHILS % (AUTO) 8.2 % (0.0-6.0); HEMATOCRIT 27 % (39-51); HEMOGLOBIN 8.6 g/dL (13.5-17.5); LYMPHOCYTES # (AUTO) 1.2 K/uL (0.8-4.8); LYMPHOCYTES % (AUTO) 26.1 % (20.0-44.0); MEAN CORPUSCULAR HEMOGLOBIN 28 PG (26.0-33.0); MEAN CORPUSCULAR HGB CONC 32 g/dl (31.0-36.0); MEAN CORPUSCULAR VOLUME 87 fL (80-96); MONOCYTES # (AUTO) 0.8 K/uL (0.1-1.30); MONOCYTES % (AUTO) 17.8 % (2.0-12.0); NEUTROPHILS # (AUTO) 2.2 K/uL (1.8-8.9); NEUTROPHILS % (AUTO) 46.9 % (43.0-81.0); PLATELET COUNT (AUTO) 430 K/uL (150-450); RED BLOOD CELL COUNT(AUTO) 3.07 MIL/uL (4.5-6.0); RED CELL DISTRIBUTION WIDTH 17.4 % (11.5-15.0); WHITE BLOOD COUNT (AUTO) 4.6 K/uL (4.3-11.0)
[2024-07-06 22:23] LABS: ANISOCYTOSIS 1+; BAND % (MANUAL) 0 % (0.0-5.0); BASOPHILS % (MANUAL) 0 % (0.0-2.0); EOSINOPHILS % (MANUAL) 9 % (0-4); LYMPHOCYTES % (MANUAL) 24 % (16-48); MONOCYTES % (MANUAL) 18 % (0-11.0); NEUTROPHILS % (MANUAL) 49 (42-76); PLATELET ESTIMATE ADEQUATE
[2024-07-07] VITALS (11 sets, daily range): BP systolic 104–105; BP diastolic 76–77; TEMP 98.4–99.1; O2SAT 96–100
[2024-07-07] MEDS: PANTOPRAZOLE 40 MG/PACK PACK GT SCH (09:00)
[2024-07-07] MEDS: INDOMETHACIN 25 MG CAPSULE GT ONE (13:25)
[2024-07-07] MEDS ORDERED: INDOMETHACIN 25 MG CAPSULE PO ONE (13:30)
[2024-07-07] MEDS ORDERED: CADEXOMER IODINE 40 GM TUBE TP PRN (20:00)
[2024-07-08] VITALS (8 sets, daily range): BP systolic 131–139; BP diastolic 90–92; TEMP 97.9–99.1; O2SAT 95–100
[2024-07-08] MEDS: CADEXOMER IODINE 40 GM TUBE TP SCH (09:00)
[2024-07-08] MEDS ORDERED: DIATR MEGLU/DIATRIZOATE SODIUM 30 ML BOTTLE (GASTROGRAPHIN) ONE (10:25)
[2024-07-08] MEDS: DIAZEPAM 2 MG TABLET GT PRN (16:23)
[2024-07-08 18:27] LABS: BASOPHILS % (AUTO) 0.5 % (0.0-2.0); EOSINOPHILS # (AUTO) 0.1 K/uL (0.0-0.7); EOSINOPHILS % (AUTO) 2.3 % (0.0-6.0); HEMATOCRIT 23 % (39-51); HEMOGLOBIN 7.5 g/dL (13.5-17.5); LYMPHOCYTES % (AUTO) 14.9 % (20.0-44.0); MEAN CORPUSCULAR HEMOGLOBIN 28 PG (26.0-33.0); MEAN CORPUSCULAR HGB CONC 33 g/dl (31.0-36.0); MEAN CORPUSCULAR VOLUME 85 fL (80-96); MONOCYTES # (AUTO) 0.6 K/uL (0.1-1.30); MONOCYTES % (AUTO) 9.1 % (2.0-12.0); NEUTROPHILS # (AUTO) 4.7 K/uL (1.8-8.9); NEUTROPHILS % (AUTO) 73.2 % (43.0-81.0); PLATELET COUNT (AUTO) 453 K/uL (150-450); RED BLOOD CELL COUNT(AUTO) 2.66 MIL/uL (4.5-6.0); RED CELL DISTRIBUTION WIDTH 17.7 % (11.5-15.0); WHITE BLOOD COUNT (AUTO) 6.5 K/uL (4.3-11.0)
[2024-07-08 18:45] LABS: CALCIUM, SERUM 8.9 mg/dL (8.5-10.1); CREATININE 0.4 mg/dL (0.6-1.3); MAGNESIUM 1.9 mg/dL (1.8-2.4); POTASSIUM 3.6 mmol/L (3.5-5.1)
[2024-07-08] MEDS ORDERED: DEXTROSE 50%-WATER 50 ML DISP.SYRIN IV PRN (20:00)
[2024-07-08] MEDS ORDERED: TPN/PPN PER PHARMACY IV SCH (20:00)
[2024-07-08] MEDS ORDERED: ACETAMINOPHEN 650 MG/SUPP.RECT RC PRN (20:30)
[2024-07-08] MEDS: ACETAMINOPHEN 650 MG/SUPP.RECT RC PRN (20:45)
[2024-07-08] MEDS: TPN #1 IV SCH (21:20)
[2024-07-08] MEDS: LORAZEPAM INJ 2 MG/ML VIAL IV PRN (22:17)
[2024-07-09] VITALS (7 sets, daily range): BP systolic 126; BP diastolic 77; TEMP 98.6–99.1; O2SAT 97–100
[2024-07-09] MEDS: BLOOD SUGAR DIAGNOSTIC 1 EACH STRIP IN SCH
[2024-07-09] MEDS: INSULIN REGULAR, HUMAN 100 UNIT/ML 3 ML VIAL SQ PRN (01:47)
[2024-07-09 07:57] LABS: CALCIUM, SERUM 9.3 mg/dL (8.5-10.1); CREATININE 0.4 mg/dL (0.6-1.3); MAGNESIUM 1.8 mg/dL (1.8-2.4); PHOSPHORUS 2.4 mg/dL (2.5-4.9); POTASSIUM 3.6 mmol/L (3.5-5.1)
[2024-07-09 08:02] LABS: CHOLESTEROL 121 mg/dL (<200); HDL CHOLESTEROL 48 mg/dL (40-60); LDL 68 mg/dL (0-99); TRIGLYCERIDES 81 mg/dL (30-150)
[2024-07-09] MEDS ORDERED: CLONIDINE HCL 0.1MG/24H PTWK 1 EA PATCH TD SCH (09:00)
[2024-07-09] MEDS ORDERED: PANTOPRAZOLE 40 MG VIAL IV SCH (09:00)
[2024-07-09] MEDS: PANTOPRAZOLE 40 MG VIAL IV SCH (09:48)
[2024-07-09] MEDS: MORPHINE SULFATE INJ 4 MG/ML DISP.SYRIN IV PRN (10:24)
[2024-07-09] MEDS ORDERED: TRAM50TA2 GT (19:16)
[2024-07-09] MEDS ORDERED: PANT40SU2 GT (19:16)
[2024-07-09] MEDS ORDERED: LEVA0.6320 IH (19:16)
[2024-07-09] MEDS ORDERED: SODI473S8 TP (19:16)
[2024-07-09] MEDS ORDERED: GABA300C GT (19:16)
[2024-07-09] MEDS ORDERED: BLOO-668 IN (19:16)
[2024-07-09] MEDS ORDERED: LACT-96 GT (19:16)
[2024-07-09] MEDS ORDERED: AMIN30LI25 GT (19:16)
[2024-07-09] MEDS ORDERED: CADE40GE2 TP (19:16)
[2024-07-09] MEDS ORDERED: ACET650S26 GT (19:16)
[2024-07-10 16:25] LABS: CREATININE 0.9 mg/dL (0.6-1.3); MAGNESIUM 1.8 mg/dL (1.8-2.4); PHOSPHORUS 3.4 mg/dL (2.5-4.9); POTASSIUM 3.9 mmol/L (3.5-5.1)
[2024-07-12 08:57] LABS: CALCIUM, SERUM 7.4 mg/dL (8.5-10.1); CREATININE 0.3 mg/dL (0.6-1.3); MAGNESIUM 1.5 mg/dL (1.8-2.4); PHOSPHORUS 1.2 mg/dL (2.5-4.9); POTASSIUM 3.3 mmol/L (3.5-5.1)
[2024-07-14 10:58] LABS: CALCIUM, SERUM 8.1 mg/dL (8.5-10.1); CREATININE 0.3 mg/dL (0.6-1.3); MAGNESIUM 1.6 mg/dL (1.8-2.4); PHOSPHORUS 2.2 mg/dL (2.5-4.9); POTASSIUM 3.2 mmol/L (3.5-5.1)
== END 2024-07-09 13:00 | disposition short-term general hospital (02) | DRG 951 ==
LOC: SA 18:17
PROVIDERS: ADMIT Internal Medicine; ATTEND Internal Medicine
PROC: 0KBT0ZZ Excision of Left Lower Leg Muscle, Open Approach (ICD-10-PCS; 2024-06-29)
PROC: 0JBL0ZZ Excision of Right Upper Leg Subcutaneous Tissue and Fascia, Open Approach (ICD-10-PCS; 2024-06-29)
PROC: 0KBN0ZZ Excision of Right Hip Muscle, Open Approach (ICD-10-PCS; principal; 2024-07-06)
PROC: 0KBP0ZZ Excision of Left Hip Muscle, Open Approach (ICD-10-PCS; 2024-07-06)
DX: J96.10 Chronic respiratory failure, unspecified whether with hypoxia or hypercapnia (principal); G93.40 Encephalopathy, unspecified; L89.224 Pressure ulcer of left hip, stage 4; L89.214 Pressure ulcer of right hip, stage 4; G21.0 Malignant neuroleptic syndrome; R53.2 Functional quadriplegia; G40.909 Epilepsy, unspecified, not intractable, without status epilepticus; R13.10 Dysphagia, unspecified; G80.0 Spastic quadriplegic cerebral palsy; I10 Essential (primary) hypertension; Z87.440 Personal history of urinary (tract) infections; Z93.0 Tracheostomy status; D64.9 Anemia, unspecified; K94.23 Gastrostomy malfunction; T43.595A Adverse effect of other antipsychotics and neuroleptics, initial encounter; Y92.239 Unspecified place in hospital as the place of occurrence of the external cause
CPT/HCPCS: 31720; 36415; 74018; 80048-TC; 80061-TC; 82962-TC; 83735-TC; 84100-TC; 85025-TC; 94640-TC; 94760-TC; 94762-TC; 94799-TC; 97110-TC; 97112-TC; 97530-TC; A4223; A4623; A6253; A7526; J1815; J2060; J2185; J2470; J7030; Q9963

== ENCOUNTER 2024-07-09 13:02 | Inpatient (IN) | payer OTHER ==
[2024-07-09] VITALS (9 sets, daily range): BP systolic 101–114; BP diastolic 66–96; O2SAT 91–100
[~2024-07-09] VITALS: Ht 121.9 cm; Wt 28.1 kg
[~2024-07-09 13:02] MED LIST changes: +HONE44PA TP
[2024-07-09] MEDS ORDERED: ACETAMINOPHEN 650 MG/SUPP.RECT RC ONE (13:12)
[2024-07-09 13:18] LABS: BASOPHILS # (AUTO) 0.1 K/uL (0.0-0.2); BASOPHILS % (AUTO) 0.5 % (0.0-2.0); HEMATOCRIT 24 % (39-51); HEMOGLOBIN 7.9 g/dL (13.5-17.5); LYMPHOCYTES # (AUTO) 0.9 K/uL (0.8-4.8); MEAN CORPUSCULAR HEMOGLOBIN 29 PG (26.0-33.0); MEAN CORPUSCULAR HGB CONC 33 g/dl (31.0-36.0); MEAN CORPUSCULAR VOLUME 86 fL (80-96); MONOCYTES # (AUTO) 0.8 K/uL (0.1-1.30); MONOCYTES % (AUTO) 4.2 % (2.0-12.0); NEUTROPHILS # (AUTO) 17.1 K/uL (1.8-8.9); NEUTROPHILS % (AUTO) 90.3 % (43.0-81.0); PLATELET COUNT (AUTO) 626 K/uL (150-450); RED BLOOD CELL COUNT(AUTO) 2.78 MIL/uL (4.5-6.0); RED CELL DISTRIBUTION WIDTH 18.6 % (11.5-15.0); WHITE BLOOD COUNT (AUTO) 18.9 K/uL (4.3-11.0)
[2024-07-09 13:22] LABS: CALCIUM, SERUM 9.6 mg/dL (8.5-10.1); CARBON DIOXIDE 30 mmol/L (21-32); CHLORIDE 104 mmol/L (98-107); CREATININE 0.9 mg/dL (0.6-1.3); GLUCOSE 101 mg/dL (74-106); POTASSIUM 4.1 mmol/L (3.5-5.1); SODIUM SERUM 145 mmol/L (136-145); UREA NITROGEN, BLOOD 29 mg/dL (7-18)
[2024-07-09 13:28] LABS: ALANINE AMINOTRANSFERASE 30 U/L (12-78); ALBUMIN 3.1 g/dL (3.4-5.0); ALKALINE PHOSPHATASE 135 U/L (46-116); ASPARTATE AMINOTRANSFERASE 37 U/L (15-37); BILIRUBIN,DIRECT 0.2 mg/dL (0.0-0.2); BILIRUBIN,TOTAL 0.4 mg/dL (0.2-1.0); INR 1.22 (0.91-1.10); PARTIAL THROMBOPLASTIN TIME 28.2 SEC (24.3-34.3); PROTHROMBIN TIME 12.8 SECS (9.2-11.1)
[2024-07-09 13:34] LABS: LACTIC ACID 2.9 mmol/L (0.4-2.0)
[2024-07-09] MEDS: IV NS 0.9% 1,000 ML BAG IV ONE (13:46)
[2024-07-09] MEDS: CEFEPIME 1 GM in IV D5W 50 ML IV ONE (13:46)
[2024-07-09] MEDS: ACETAMINOPHEN 650 MG/SUPP.RECT RC ONE (13:47)
[2024-07-09] MEDS ORDERED: ADENOSINE 6 MG/2 ML VIAL ONE (13:55)
[2024-07-09] MEDS: VANCOMYCIN 1 GM in IV D5W 250 ML IV ONE (13:56)
[2024-07-09 14:01] LABS: APPEARANCE,URINE TURBID (CLEAR); BILIRUBIN,URINE NEGATIVE (NEGATIVE); BLOOD, URINE 3+ Ery/uL (NEGATIVE); COLOR,URINE YELLOW (YELLOW); KETONES,URINE 1+ mg/dL (NEGATIVE); LEUKOCYTE ESTERASE ,URINE 1+ (NEGATIVE); NITRITE, URINE NEGATIVE (NEGATIVE); PH,URINE 7.5 (5.0-8.0); PROTEIN,URINE 2+ mg/dl (NEGATIVE); UGLUCOSE NEGATIVE (NEGATIVE); UROBILINOGEN,URINE 0.2 EU/dL (0.2)
[2024-07-09 14:15] LABS: ADD URINE CULTURE YES; BACTERIA,URINE Moderate /HPF (None Seen); YEAST,URINE Moderate /HPF (None Seen)
[2024-07-09 14:17] LABS: CALCIUM OXALATE CRYSTALS,UR Few /HPF (None Seen)
[2024-07-09 14:22] LABS: URINE AMORPHOUS URATE Moderate /HPF (None Seen)
[2024-07-09 14:35] LABS: NT-PRO BNP 144 pg/mL (0-125)
[2024-07-09] MEDS ORDERED: DILTIAZEM HCL 25 MG IV ONE (14:37)
[2024-07-09] MEDS: DILTIAZEM HCL 25 MG IV IVP ONE (14:39)
[2024-07-09] MEDS ORDERED: ALBUTEROL FS 2.5 MG/3 ML VIAL.NEB IH PRN (15:00)
[2024-07-09] MEDS ORDERED: POLYETHYLENE GLYCOL 3350 17 GM POWD.PACK GT PRN (15:00)
[2024-07-09] MEDS ORDERED: ONDANSETRON HCL/PF 4 MG/2 ML VIAL IVP PRN (15:00)
[2024-07-09] MEDS: DILTIAZEM HCL IV 125 MG in IV D5W 100 ML IV ONE (15:00)
[2024-07-09] MEDS ORDERED: IPRATROPIUM NEB FS 0.5 MG/2.5 ML AMPUL.NEB IH PRN (15:00)
[2024-07-09] MEDS ORDERED: ALBUTEROL FS 2.5 MG/0.5 ML VIAL.NEB NEB PRN (15:00)
[2024-07-09] MEDS ORDERED: BISACODYL SUPP (10 MG) 10 MG/SUPP.RECT SUPP.RECT RC PRN (15:00)
[2024-07-09] MEDS ORDERED: VITAL AF 1.2 1,000 ML BOTTLE GT SCH (15:00)
[2024-07-09] MEDS ORDERED: MAG HYDROX/AL HYDROX/SIMETH 30 ML UDC PO PRN (15:00)
[2024-07-09] MEDS ORDERED: ACETAMINOPHEN 325 MG TABLET PO PRN (15:00)
[2024-07-09] MEDS ORDERED: Z GUARD REMEDY 4 OZ OINT TP PRN (15:00)
[2024-07-09] MEDS ORDERED: LORAZEPAM ORAL SOLN 2 MG/ML ORAL.CONC GT PRN (15:00)
[2024-07-09] MEDS ORDERED: hydrALAZINE HCL IV 20 MG VIAL IV PRN (15:00)
[2024-07-09] MEDS: FAMOTIDINE (20 MG) 20 MG TABLET PO SCH (17:00)
[2024-07-09] MEDS: ASCORBIC ACID 500 MG TABLET GT SCH (17:00)
[2024-07-09] MEDS: DOCUSATE SODIUM LIQ 100 MG/10 ML UDC PO SCH (17:00)
[2024-07-09] MEDS: IV NS 0.9% 500 ML BAG IV ONE (17:15)
[2024-07-09] MEDS ORDERED: KETOROLAC TROMETHAMINE INJ 30 MG/ML VIAL ONE (17:32)
[2024-07-09] MEDS: KETOROLAC TROMETHAMINE 15 MG/ML VIAL IV ONE (17:35)
[2024-07-09] MEDS: SIMETHICONE 80 MG TAB.CHEW GT SCH (18:00)
[2024-07-09] MEDS ORDERED: IPRATROPIUM/ALBUTEROL INHALER IH SCH (18:00)
[2024-07-09] MEDS ORDERED: Medication Not On Formulary EA (Glycopyrrolate 1 MG) GT SCH (18:00)
[2024-07-09] MEDS ORDERED: ACET650S26 GT (19:16)
[2024-07-09] MEDS ORDERED: BLOO-668 IN (19:16)
[2024-07-09] MEDS ORDERED: TRAM50TA2 GT (19:16)
[2024-07-09] MEDS ORDERED: SODI473S8 TP (19:16)
[2024-07-09] MEDS ORDERED: CADE40GE2 TP (19:16)
[2024-07-09] MEDS ORDERED: GABA300C GT (19:16)
[2024-07-09] MEDS ORDERED: LEVA0.6320 IH (19:16)
[2024-07-09] MEDS ORDERED: AMIN30LI25 GT (19:16)
[2024-07-09] MEDS ORDERED: PANT40SU2 GT (19:16)
[2024-07-09] MEDS ORDERED: LACT-96 GT (19:16)
[2024-07-09] MEDS ORDERED: TPN #1 IV SCH (19:30)
[2024-07-09] MEDS ORDERED: LORAZEPAM 1 MG TABLET GT PRN (20:00)
[2024-07-09] MEDS: GABAPENTIN 300 MG CAPSULE PO SCH (20:00)
[2024-07-09] MEDS: BACLOFEN (10 MG) 10 MG TABLET PO SCH (21:00)
[2024-07-09] MEDS: HEPARIN SODIUM, PORCINE 5000 UNITS/1 ML VIAL SQ SCH (21:00)
[2024-07-09] MEDS: DIAZEPAM 2 MG TABLET GT SCH (21:00)
[2024-07-09] MEDS: BUDESONIDE RESPULE INH 0.5 MG/2 ML AMPUL.NEB IH SCH (21:00)
[2024-07-09] MEDS ORDERED: ERYTHROMYCIN ETHYLSUCCINATE 200 MG/5 ML BOTTLE GT SCH (21:00)
[2024-07-09] MEDS ORDERED: GABAPENTIN 300 MG CAPSULE PO SCH (21:00)
[2024-07-09] MEDS ORDERED: METOCLOPRAMIDE HCL 5 MG GT SCH (21:00)
[2024-07-09] MEDS ORDERED: MEROPENEM 1 G VIAL IV ONE (21:04)
[2024-07-09] MEDS ORDERED: HEPARIN SODIUM, PORCINE 5000 UNITS/1 ML VIAL ONE (21:04)
[2024-07-09] MEDS ORDERED: IPRATROPIUM NEB FS 0.5 MG/2.5 ML AMPUL.NEB ONE (21:06)
[2024-07-09] MEDS: IPRATROPIUM NEB FS 0.5 MG/2.5 ML AMPUL.NEB NEB SCH (21:10)
[2024-07-09] MEDS: ALBUTEROL FS 2.5 MG/3 ML VIAL.NEB NEB SCH (21:10)
[2024-07-09] MEDS: MEROPENEM 1 G in IV NS 0.9% 100 ML IV SCH (21:36)
[2024-07-09] MEDS: VANCOMYCIN 500 MG in IV D5W 100ml IV SCH (23:16)
[2024-07-09] MEDS ORDERED: FLUCONAZOLE IN NS 100 ML IV ONE (23:23)
[2024-07-10] VITALS (89 sets, daily range): BP systolic 72–164; BP diastolic 42–126; TEMP 98.9–105.6; O2SAT 91–100
[2024-07-10] MEDS: FLUCONAZOLE IN NS 100 MG in PREMIX 1 EA IV SCH (00:17)
[2024-07-10] MEDS: DILTIAZEM HCL 25 MG IV ONE (00:19)
[2024-07-10] MEDS: DILTIAZEM HCL IV 125 MG in IV NS 0.9% 100 ML IV PRN (00:21)
[2024-07-10] MEDS: ACETAMINOPHEN 650 MG/SUPP.RECT RC PRN (00:28)
[2024-07-10] MEDS: Sodium Phosphate 15 MMOL in IV NS 0.9% 245 ML IV SCH (01:21)
[2024-07-10 05:19] LABS: BASOPHILS % (AUTO) 0.3 % (0.0-2.0); HEMATOCRIT 21 % (39-51); LYMPHOCYTES # (AUTO) 0.9 K/uL (0.8-4.8); LYMPHOCYTES % (AUTO) 8.5 % (20.0-44.0); MEAN CORPUSCULAR HEMOGLOBIN 29 PG (26.0-33.0); MEAN CORPUSCULAR HGB CONC 33 g/dl (31.0-36.0); MEAN CORPUSCULAR VOLUME 87 fL (80-96); MONOCYTES # (AUTO) 0.5 K/uL (0.1-1.30); MONOCYTES % (AUTO) 4.5 % (2.0-12.0); NEUTROPHILS # (AUTO) 9.5 K/uL (1.8-8.9); NEUTROPHILS % (AUTO) 86.7 % (43.0-81.0); PLATELET COUNT (AUTO) 534 K/uL (150-450); RED BLOOD CELL COUNT(AUTO) 2.39 MIL/uL (4.5-6.0); RED CELL DISTRIBUTION WIDTH 19.1 % (11.5-15.0); WHITE BLOOD COUNT (AUTO) 10.9 K/uL (4.3-11.0)
[2024-07-10 05:20] LABS: ALBUMIN 2.7 g/dL (3.4-5.0); BILIRUBIN,TOTAL 0.5 mg/dL (0.2-1.0); CALCIUM, SERUM 8.4 mg/dL (8.5-10.1); CREATININE 0.8 mg/dL (0.6-1.3); MAGNESIUM 1.7 mg/dL (1.8-2.4); PHOSPHORUS 4.2 mg/dL (2.5-4.9)
[2024-07-10] MEDS: TPN #2 IV SCH (05:24)
[2024-07-10 05:35] LABS: POTASSIUM 2.8 mmol/L (3.5-5.1)
[2024-07-10 05:36] LABS: HEMOGLOBIN 6.8 g/dL (13.5-17.5)
[2024-07-10] MEDS: PHENYLEPHRINE 100 MG in IV NS 0.9% 240 ML IV PRN (05:54)
[2024-07-10 06:11] LABS: ANISOCYTOSIS 1+; LYMPHOCYTES % (MANUAL) 11 % (16-48); MONOCYTES % (MANUAL) 2 % (0-11.0); NEUTROPHILS % (MANUAL) 87 (42-76); PLATELET ESTIMATE INCREASED
[2024-07-10] MEDS: PHENYLEPHRINE 10 MG/ML VIAL ONE (06:27)
[2024-07-10] MEDS: BROMOCRIPTINE MESYLATE (2.5MG) 2.5 MG TABLET GT SCH (08:00)
[2024-07-10] MEDS: POLYETHYLENE GLYCOL 3350 17 GM POWD.PACK PO SCH (09:00)
[2024-07-10] MEDS: PROPRANOLOL HCL 10 MG TABLET GT SCH (09:00)
[2024-07-10] MEDS ORDERED: VASOPRESSIN INJ 40 UNIT in IV NS 0.9% 38 ML IV PRN (09:00)
[2024-07-10] MEDS: INDOMETHACIN 25 MG CAPSULE GT SCH (09:00)
[2024-07-10] MEDS: POLYVINYL ALCOHOL 15 ML BOTTLE EACHEYE SCH (09:30)
[2024-07-10 09:49] LABS: ABG BASE EXCESS 4.9 mmol/L (-2.0-3.0); ABG OXYGEN SATURATION 94.8 % (94.0-98.0); ABG PH 7.575 (7.350-7.450); ABG PO2 76.2 mmHg (83.0-108.0); ABG TOTAL HEMOGLOBIN 6.8 G/dL (13.5-17.5); COHb 0.3 % (0.5-1.5); MetHb 0.2 % (0.0-1.5); O2Hb 94.3 % (94.0-97.0); SITE, ABG RIGHT FEMORAL
[2024-07-10] MEDS: HYDROCORTISONE SOD SUCCINATE 100 MG/2 ML VIAL IV SCH (10:00)
[2024-07-10] MEDS: POTASSIUM CL. PREMIX PERIPHER. 50 ML IV SCH (11:15)
[2024-07-10] MEDS: IV PREMIX D5 1/2NS + KCL 1,000 ML IV PRN (11:23)
[2024-07-10] MEDS: Magnesium 1GM/D5W 100ML PREMIX 100 ML IV SCH (11:30)
[2024-07-10 17:34] LABS: HEMOGLOBIN 6.6 g/dL (13.5-17.5)
[2024-07-11] VITALS (109 sets, daily range): BP systolic 98–134; BP diastolic 51–115; TEMP 98.1–100.8; O2SAT 95–100
[2024-07-11] MEDS: MORPHINE SULFATE INJ 4 MG/ML DISP.SYRIN IV PRN (00:53)
[2024-07-11 04:17] LABS: BASOPHILS % (AUTO) 0.2 % (0.0-2.0); HEMATOCRIT 22 % (39-51); HEMOGLOBIN 7.3 g/dL (13.5-17.5); LYMPHOCYTES # (AUTO) 0.8 K/uL (0.8-4.8); LYMPHOCYTES % (AUTO) 12.8 % (20.0-44.0); MEAN CORPUSCULAR HEMOGLOBIN 29 PG (26.0-33.0); MEAN CORPUSCULAR HGB CONC 33 g/dl (31.0-36.0); MEAN CORPUSCULAR VOLUME 89 fL (80-96); MONOCYTES # (AUTO) 0.6 K/uL (0.1-1.30); PLATELET COUNT (AUTO) 343 K/uL (150-450); RED CELL DISTRIBUTION WIDTH 17.6 % (11.5-15.0); WHITE BLOOD COUNT (AUTO) 6.4 K/uL (4.3-11.0)
[2024-07-11 04:36] LABS: CALCIUM, SERUM 7.9 mg/dL (8.5-10.1); CREATININE 0.7 mg/dL (0.6-1.3); MAGNESIUM 1.8 mg/dL (1.8-2.4); PHOSPHORUS 2.1 mg/dL (2.5-4.9); POTASSIUM 3.1 mmol/L (3.5-5.1)
[2024-07-11] MEDS: TPN #3 IV SCH (06:52)
[2024-07-11] MEDS: IV PREMIX D5 1/2NS + KCL 1,000 ML IV SCH (08:14)
[2024-07-11] MEDS: Sodium Phosphate 15 MMOL in IV NS 0.9% 245 ML IV SCH (12:47)
[2024-07-11] MEDS: MEROPENEM 1 G in IV NS 0.9% 100 ML IV SCH (13:55)
[2024-07-11] MEDS: POTASSIUM CL. PREMIX PERIPHER. 50 ML IV SCH (13:55)
[2024-07-11] MEDS: IV NS 0.9% 250 ML IV PRN (13:56)
[2024-07-11 15:11] LABS: HEMOGLOBIN 7.6 g/dL (13.5-17.5)
[2024-07-11] MEDS ORDERED: DEXTROSE 50%-WATER 50 ML DISP.SYRIN IV PRN (18:30)
[2024-07-11] MEDS: BLOOD SUGAR DIAGNOSTIC 1 EACH STRIP IN SCH (23:26)
[2024-07-11] MEDS: INSULIN REGULAR, HUMAN 100 UNIT/ML 3 ML VIAL SQ PRN (23:33)
[2024-07-12] VITALS (67 sets, daily range): BP systolic 91–153; BP diastolic 61–111; TEMP 97.6–100; O2SAT 95–100
[2024-07-12] LABS: HEMOGLOBIN 6.8 g/dL (13.5-17.5)
[2024-07-12] MEDS: KETOROLAC TROMETHAMINE 15 MG/ML VIAL IV ONE (02:42)
[2024-07-12] MEDS ORDERED: KETOROLAC TROMETHAMINE 15 MG/ML VIAL IV PRN (04:00)
[2024-07-12] MEDS: TPN #4 IV SCH (08:06)
[2024-07-12] MEDS ORDERED: POTASSIUM CHLORIDE 20 MEQ TAB.PRT.SR PO SCH (09:00)
[2024-07-12 09:01] LABS: LYMPHOCYTES # (AUTO) 0.6 K/uL (0.8-4.8); LYMPHOCYTES % (AUTO) 8.5 % (20.0-44.0); MEAN CORPUSCULAR HEMOGLOBIN 29 PG (26.0-33.0); MEAN CORPUSCULAR HGB CONC 33 g/dl (31.0-36.0); MEAN CORPUSCULAR VOLUME 89 fL (80-96); MONOCYTES # (AUTO) 0.3 K/uL (0.1-1.30); NEUTROPHILS # (AUTO) 5.8 K/uL (1.8-8.9); NEUTROPHILS % (AUTO) 87.5 % (43.0-81.0); PLATELET COUNT (AUTO) 253 K/uL (150-450); RED BLOOD CELL COUNT(AUTO) 2.14 MIL/uL (4.5-6.0); RED CELL DISTRIBUTION WIDTH 17.8 % (11.5-15.0); WHITE BLOOD COUNT (AUTO) 6.7 K/uL (4.3-11.0)
[2024-07-12] MEDS: IV D5W 1,000 ML IV PRN (09:17)
[2024-07-12 09:24] LABS: HEMATOCRIT 19 % (39-51); HEMOGLOBIN 6.2 g/dL (13.5-17.5)
[2024-07-12 10:00] LABS: CALCIUM, SERUM 7.4 mg/dL (8.5-10.1); CREATININE 0.4 mg/dL (0.6-1.3); POTASSIUM 3.3 mmol/L (3.5-5.1)
[2024-07-12] MEDS: DIAZEPAM 5 MG/ML 2 ML DISP.SYRIN IV SCH (11:00)
[2024-07-12] MEDS: POTASSIUM CL. PREMIX PERIPHER. 50 ML IV SCH (11:06)
[2024-07-12] MEDS: LORAZEPAM INJ 2 MG/ML VIAL IV PRN (11:28)
[2024-07-12 11:50] LABS: MAGNESIUM 1.5 mg/dL (1.8-2.4); PHOSPHORUS 1.2 mg/dL (2.5-4.9)
[2024-07-12] MEDS: Sodium Phosphate 15 MMOL in IV NS 0.9% 245 ML IV SCH (12:27)
[2024-07-12] MEDS: Magnesium 1GM/D5W 100ML PREMIX 100 ML IV SCH (12:27)
[2024-07-12] MEDS ORDERED: HYDROCORTISONE SOD SUCCINATE 100 MG/2 ML VIAL IV SCH (15:00)
[2024-07-12 15:18] LABS: LYMPHOCYTES % (MANUAL) 7 % (16-48); NEUTROPHILS % (MANUAL) 93 (42-76); PLATELET ESTIMATE ADEQUATE
[2024-07-12] MEDS: DAKINS QUARTER STRENGTH (0.125%) 480 ML BOTTLE TOP SCH (16:11)
[2024-07-12] MEDS: THERAHONEY GEL 1.5 OZ TUBE TP SCH (16:11)
[2024-07-12] MEDS: HYDROCORTISONE SOD SUCCINATE 100 MG/2 ML VIAL IV SCH (16:13)
[2024-07-12 16:42] LABS: HEMOGLOBIN 7.1 g/dL (13.5-17.5)
[2024-07-13] VITALS (38 sets, daily range): BP systolic 98–129; BP diastolic 72–104; TEMP 98.5–99.7; O2SAT 95–100
[2024-07-13 04:37] LABS: BASOPHILS % (AUTO) 0.2 % (0.0-2.0); HEMATOCRIT 23 % (39-51); HEMOGLOBIN 7.6 g/dL (13.5-17.5); LYMPHOCYTES # (AUTO) 0.6 K/uL (0.8-4.8); LYMPHOCYTES % (AUTO) 13.5 % (20.0-44.0); MEAN CORPUSCULAR HEMOGLOBIN 30 PG (26.0-33.0); MEAN CORPUSCULAR HGB CONC 34 g/dl (31.0-36.0); MEAN CORPUSCULAR VOLUME 90 fL (80-96); MONOCYTES # (AUTO) 0.4 K/uL (0.1-1.30); MONOCYTES % (AUTO) 9.1 % (2.0-12.0); NEUTROPHILS # (AUTO) 3.3 K/uL (1.8-8.9); NEUTROPHILS % (AUTO) 77.2 % (43.0-81.0); PLATELET COUNT (AUTO) 227 K/uL (150-450); RED CELL DISTRIBUTION WIDTH 16.3 % (11.5-15.0); WHITE BLOOD COUNT (AUTO) 4.2 K/uL (4.3-11.0)
[2024-07-13 05:47] LABS: LYMPHOCYTES % (MANUAL) 9 % (16-48); MONOCYTES % (MANUAL) 4 % (0-11.0); NEUTROPHILS % (MANUAL) 87 (42-76)
[2024-07-13 05:48] LABS: PLATELET ESTIMATE ADEQUATE
[2024-07-13 05:49] LABS: ANISOCYTOSIS 1+
[2024-07-13 08:07] LABS: CALCIUM, SERUM 7.9 mg/dL (8.5-10.1); CREATININE 0.4 mg/dL (0.6-1.3); POTASSIUM 3.3 mmol/L (3.5-5.1)
[2024-07-13 08:12] LABS: ALBUMIN 2.1 g/dL (3.4-5.0); BILIRUBIN,TOTAL 0.5 mg/dL (0.2-1.0); TOTAL PROTEIN, SERUM 5.9 g/dL (6.4-8.2)
[2024-07-13] MEDS: TPN #5 IV SCH (09:07)
[2024-07-13 12:57] LABS: PHOSPHORUS 1.6 mg/dL (2.5-4.9)
[2024-07-13] MEDS ORDERED: POTASSIUM PHOSPHATE MM 15 MMOL in IV NS 0.9% 250 ML IV SCH (15:00)
[2024-07-13] MEDS ORDERED: Sodium Phosphate 15 MMOL in IV NS 0.9% 245 ML IV SCH (15:00)
[2024-07-13] MEDS: POTASSIUM PHOSPHATE MM 15 MMOL in IV NS 0.9% 250 ML IV SCH (18:16)
[2024-07-13] MEDS: POTASSIUM CL. PREMIX PERIPHER. 50 ML IV SCH (21:18)
[2024-07-14] VITALS (51 sets, daily range): BP systolic 101–143; BP diastolic 61–100; TEMP 97.1–99.8; O2SAT 94–100
[2024-07-14 04:34] LABS: BASOPHILS % (AUTO) 0.2 % (0.0-2.0); EOSINOPHILS % (AUTO) 0.8 % (0.0-6.0); HEMATOCRIT 21 % (39-51); LYMPHOCYTES # (AUTO) 0.9 K/uL (0.8-4.8); LYMPHOCYTES % (AUTO) 21.2 % (20.0-44.0); MEAN CORPUSCULAR HEMOGLOBIN 30 PG (26.0-33.0); MEAN CORPUSCULAR HGB CONC 34 g/dl (31.0-36.0); MEAN CORPUSCULAR VOLUME 88 fL (80-96); MONOCYTES # (AUTO) 0.4 K/uL (0.1-1.30); MONOCYTES % (AUTO) 9.9 % (2.0-12.0); NEUTROPHILS % (AUTO) 67.9 % (43.0-81.0); PLATELET COUNT (AUTO) 196 K/uL (150-450); RED BLOOD CELL COUNT(AUTO) 2.32 MIL/uL (4.5-6.0); WHITE BLOOD COUNT (AUTO) 4.5 K/uL (4.3-11.0)
[2024-07-14 05:34] LABS: HEMOGLOBIN 6.9 g/dL (13.5-17.5)
[2024-07-14 08:25] LABS: CALCIUM, SERUM 7.8 mg/dL (8.5-10.1); CREATININE 0.3 mg/dL (0.6-1.3); POTASSIUM 2.9 mmol/L (3.5-5.1)
[2024-07-14 09:12] LABS: MAGNESIUM 1.6 mg/dL (1.8-2.4)
[2024-07-14] MEDS: TPN #6 IV SCH (10:21)
[2024-07-14] MEDS: POTASSIUM CL. PREMIX PERIPHER. 50 ML IV SCH ×2 (10:33→18:03)
[2024-07-14] MEDS: Magnesium 1GM/D5W 100ML PREMIX 100 ML IV SCH (10:33)
[2024-07-14 14:54] LABS: ANISOCYTOSIS 1+; HYPOCHROMASIA 1+; LYMPHOCYTES % (MANUAL) 13 % (16-48); MONOCYTES % (MANUAL) 7 % (0-11.0); NEUTROPHILS % (MANUAL) 80 (42-76); PLATELET ESTIMATE ADEQUATE
[2024-07-14 17:07] LABS: CREATININE 0.3 mg/dL (0.6-1.3); POTASSIUM 3.1 mmol/L (3.5-5.1)
[2024-07-15] VITALS (21 sets, daily range): BP systolic 124–166; BP diastolic 85–90; TEMP 98.1–208.6; O2SAT 96–100
[2024-07-15 07:42] LABS: CALCIUM, SERUM 8.5 mg/dL (8.5-10.1); CREATININE 0.3 mg/dL (0.6-1.3); PHOSPHORUS 2.6 mg/dL (2.5-4.9); POTASSIUM 3.4 mmol/L (3.5-5.1)
[2024-07-15 09:11] LABS: BASOPHILS % (AUTO) 0.3 % (0.0-2.0); EOSINOPHILS # (AUTO) 0.4 K/uL (0.0-0.7); EOSINOPHILS % (AUTO) 7.5 % (0.0-6.0); HEMATOCRIT 27 % (39-51); HEMOGLOBIN 9.2 g/dL (13.5-17.5); LYMPHOCYTES # (AUTO) 0.8 K/uL (0.8-4.8); LYMPHOCYTES % (AUTO) 16.4 % (20.0-44.0); MEAN CORPUSCULAR HEMOGLOBIN 31 PG (26.0-33.0); MEAN CORPUSCULAR HGB CONC 34 g/dl (31.0-36.0); MEAN CORPUSCULAR VOLUME 91 fL (80-96); MONOCYTES # (AUTO) 0.4 K/uL (0.1-1.30); MONOCYTES % (AUTO) 6.9 % (2.0-12.0); NEUTROPHILS # (AUTO) 3.5 K/uL (1.8-8.9); NEUTROPHILS % (AUTO) 68.9 % (43.0-81.0); PLATELET COUNT (AUTO) 209 K/uL (150-450); RED BLOOD CELL COUNT(AUTO) 2.95 MIL/uL (4.5-6.0); RED CELL DISTRIBUTION WIDTH 15.8 % (11.5-15.0); WHITE BLOOD COUNT (AUTO) 5.1 K/uL (4.3-11.0)
[2024-07-15] MEDS: POTASSIUM CL. PREMIX PERIPHER. 50 ML IV SCH (13:00)
[2024-07-15] MEDS: VANCOMYCIN 750 MG in IV D5W 250 ML IV SCH (16:25)
[2024-07-15] MEDS ORDERED: ANESTHESIA TRAY IN PYXIS 1 EA TRAY MC ONE (17:06)
[2024-07-16] VITALS (17 sets, daily range): BP systolic 134–139; BP diastolic 74–93; TEMP 98.1–99.3; O2SAT 98–100
[2024-07-16 07:32] LABS: BASOPHILS % (AUTO) 0.1 % (0.0-2.0); EOSINOPHILS # (AUTO) 0.3 K/uL (0.0-0.7); EOSINOPHILS % (AUTO) 6.7 % (0.0-6.0); HEMATOCRIT 25 % (39-51); HEMOGLOBIN 8.5 g/dL (13.5-17.5); LYMPHOCYTES # (AUTO) 0.7 K/uL (0.8-4.8); LYMPHOCYTES % (AUTO) 13.5 % (20.0-44.0); MEAN CORPUSCULAR HEMOGLOBIN 30 PG (26.0-33.0); MEAN CORPUSCULAR HGB CONC 34 g/dl (31.0-36.0); MEAN CORPUSCULAR VOLUME 89 fL (80-96); MONOCYTES # (AUTO) 0.4 K/uL (0.1-1.30); MONOCYTES % (AUTO) 7.6 % (2.0-12.0); NEUTROPHILS # (AUTO) 3.7 K/uL (1.8-8.9); NEUTROPHILS % (AUTO) 72.1 % (43.0-81.0); PLATELET COUNT (AUTO) 246 K/uL (150-450); RED BLOOD CELL COUNT(AUTO) 2.82 MIL/uL (4.5-6.0); RED CELL DISTRIBUTION WIDTH 15.5 % (11.5-15.0); WHITE BLOOD COUNT (AUTO) 5.1 K/uL (4.3-11.0)
[2024-07-16 07:42] LABS: MAGNESIUM 1.6 mg/dL (1.8-2.4); PHOSPHORUS 2.7 mg/dL (2.5-4.9)
[2024-07-16] MEDS: FAT EMULSION 20% 500 ML in PREMIX 1 EA IV SCH (13:25)
[2024-07-16 13:45] LABS: CALCIUM, SERUM 8.8 mg/dL (8.5-10.1); CREATININE 0.3 mg/dL (0.6-1.3); POTASSIUM 3.3 mmol/L (3.5-5.1)
[2024-07-16] MEDS: POTASSIUM CL. PREMIX PERIPHER. 50 ML IV SCH (17:17)
[2024-07-16] MEDS: Magnesium 1GM/D5W 100ML PREMIX 100 ML IV SCH (17:17)
[2024-07-16] MEDS: TPN #7 IV SCH (17:18)
[2024-07-17] VITALS (13 sets, daily range): BP systolic 128–136; BP diastolic 92–95; TEMP 97.9–98.6; O2SAT 92–100
[2024-07-17 06:36] LABS: BASOPHILS % (AUTO) 0.4 % (0.0-2.0); EOSINOPHILS # (AUTO) 0.4 K/uL (0.0-0.7); EOSINOPHILS % (AUTO) 7.4 % (0.0-6.0); HEMATOCRIT 27 % (39-51); HEMOGLOBIN 9.2 g/dL (13.5-17.5); LYMPHOCYTES # (AUTO) 0.7 K/uL (0.8-4.8); LYMPHOCYTES % (AUTO) 13.7 % (20.0-44.0); MEAN CORPUSCULAR HEMOGLOBIN 30 PG (26.0-33.0); MEAN CORPUSCULAR HGB CONC 34 g/dl (31.0-36.0); MEAN CORPUSCULAR VOLUME 90 fL (80-96); MONOCYTES # (AUTO) 0.5 K/uL (0.1-1.30); MONOCYTES % (AUTO) 9.6 % (2.0-12.0); NEUTROPHILS # (AUTO) 3.4 K/uL (1.8-8.9); NEUTROPHILS % (AUTO) 68.9 % (43.0-81.0); PLATELET COUNT (AUTO) 276 K/uL (150-450); RED BLOOD CELL COUNT(AUTO) 3.06 MIL/uL (4.5-6.0); RED CELL DISTRIBUTION WIDTH 15.6 % (11.5-15.0)
[2024-07-17 07:08] LABS: CALCIUM, SERUM 8.7 mg/dL (8.5-10.1); CREATININE 0.4 mg/dL (0.6-1.3); MAGNESIUM 2.2 mg/dL (1.8-2.4); PHOSPHORUS 2.9 mg/dL (2.5-4.9); POTASSIUM 3.1 mmol/L (3.5-5.1)
[2024-07-17] MEDS: POTASSIUM CL. PREMIX PERIPHER. 50 ML IV SCH (10:13)
[2024-07-17] MEDS: VANCOMYCIN 750 MG in IV D5W 250 ML IV SCH (19:05)
[2024-07-18] VITALS (14 sets, daily range): BP systolic 114–125; BP diastolic 84–94; TEMP 98.1–98.6; O2SAT 95–100
[2024-07-18 07:19] LABS: BASOPHILS % (AUTO) 0.5 % (0.0-2.0); EOSINOPHILS # (AUTO) 0.2 K/uL (0.0-0.7); EOSINOPHILS % (AUTO) 4.7 % (0.0-6.0); HEMATOCRIT 27 % (39-51); HEMOGLOBIN 9.3 g/dL (13.5-17.5); LYMPHOCYTES # (AUTO) 0.7 K/uL (0.8-4.8); LYMPHOCYTES % (AUTO) 16.1 % (20.0-44.0); MEAN CORPUSCULAR HEMOGLOBIN 31 PG (26.0-33.0); MEAN CORPUSCULAR HGB CONC 34 g/dl (31.0-36.0); MEAN CORPUSCULAR VOLUME 90 fL (80-96); MONOCYTES # (AUTO) 0.6 K/uL (0.1-1.30); MONOCYTES % (AUTO) 14.9 % (2.0-12.0); NEUTROPHILS # (AUTO) 2.7 K/uL (1.8-8.9); NEUTROPHILS % (AUTO) 63.8 % (43.0-81.0); PLATELET COUNT (AUTO) 303 K/uL (150-450); RED BLOOD CELL COUNT(AUTO) 3.03 MIL/uL (4.5-6.0); WHITE BLOOD COUNT (AUTO) 4.2 K/uL (4.3-11.0)
[2024-07-18 07:40] LABS: CALCIUM, SERUM 9.1 mg/dL (8.5-10.1); MAGNESIUM 1.8 mg/dL (1.8-2.4); PHOSPHORUS 3.3 mg/dL (2.5-4.9); POTASSIUM 3.6 mmol/L (3.5-5.1)
[2024-07-18 07:51] LABS: CREATININE 0.2 mg/dL (0.6-1.3)
[2024-07-18] MEDS: VANCOMYCIN 1 GM in IV D5W 250 ML IV SCH (10:20)
[2024-07-18] MEDS ORDERED: FENTANYL PF 100MCG/2ML AMPUL ONE (11:45)
[2024-07-18] MEDS ORDERED: ROCURONIUM BROMIDE 50 MG/5 ML ONE (11:45)
[2024-07-18] MEDS ORDERED: BUPIVACAINE 0.5 % PF 150 MG/30 ML VIAL ONE (12:01)
[2024-07-18] MEDS ORDERED: LIDOCAINE 1%-EPI 1:100,000 20 ML VIAL ONE (12:01)
[2024-07-18] MEDS ORDERED: CELLULOSE,OXIDIZED 1 EA PACK MC ONE (12:25)
[2024-07-18] MEDS: TPN #8 IV SCH (15:14)
[2024-07-19] VITALS (9 sets, daily range): BP systolic 113; BP diastolic 76; TEMP 98.7–100.8; O2SAT 96–100
[2024-07-19 07:10] LABS: BASOPHILS % (AUTO) 0.5 % (0.0-2.0); EOSINOPHILS # (AUTO) 0.2 K/uL (0.0-0.7); EOSINOPHILS % (AUTO) 2.9 % (0.0-6.0); HEMATOCRIT 29 % (39-51); HEMOGLOBIN 9.6 g/dL (13.5-17.5); LYMPHOCYTES # (AUTO) 0.8 K/uL (0.8-4.8); MEAN CORPUSCULAR HEMOGLOBIN 30 PG (26.0-33.0); MEAN CORPUSCULAR HGB CONC 33 g/dl (31.0-36.0); MEAN CORPUSCULAR VOLUME 91 fL (80-96); MONOCYTES # (AUTO) 0.8 K/uL (0.1-1.30); MONOCYTES % (AUTO) 13.6 % (2.0-12.0); NEUTROPHILS # (AUTO) 3.9 K/uL (1.8-8.9); PLATELET COUNT (AUTO) 356 K/uL (150-450); RED BLOOD CELL COUNT(AUTO) 3.19 MIL/uL (4.5-6.0); RED CELL DISTRIBUTION WIDTH 16.4 % (11.5-15.0); WHITE BLOOD COUNT (AUTO) 5.7 K/uL (4.3-11.0)
[2024-07-19 07:21] LABS: CALCIUM, SERUM 9.3 mg/dL (8.5-10.1); CREATININE 0.3 mg/dL (0.6-1.3); MAGNESIUM 1.8 mg/dL (1.8-2.4); PHOSPHORUS 3.3 mg/dL (2.5-4.9); POTASSIUM 3.2 mmol/L (3.5-5.1)
[2024-07-19] MEDS: VANCOMYCIN 750 MG in IV D5W 250 ML IV SCH (10:00)
[2024-07-19] MEDS: POTASSIUM CL. PREMIX PERIPHER. 50 ML IV SCH (11:11)
[2024-07-20] MEDS ORDERED: TPN #9 IV SCH ×2 (07:21→07:22)
== END 2024-07-19 15:25 | DRG 710 ==
LOC: ER 13:05 → ICU 21:33 → TELE 07-14 18:10 → MED 07-15 11:16
PROVIDERS: ADMIT Internal Medicine
PROC: 5A09357 Assistance with Respiratory Ventilation, Less than 24 Consecutive Hours, Continuous Positive Airway Pressure (ICD-10-PCS; 2024-07-09)
PROC: 30233N1 Transfusion of Nonautologous Red Blood Cells into Peripheral Vein, Percutaneous Approach (ICD-10-PCS; 2024-07-10)
PROC: 0KBP0ZZ Excision of Left Hip Muscle, Open Approach (ICD-10-PCS; principal; 2024-07-13)
PROC: 0KBN0ZZ Excision of Right Hip Muscle, Open Approach (ICD-10-PCS; 2024-07-13)
PROC: 02HV33Z Insertion of Infusion Device into Superior Vena Cava, Percutaneous Approach (ICD-10-PCS; 2024-07-14)
PROC: B548ZZA Ultrasonography of Superior Vena Cava, Guidance (ICD-10-PCS; 2024-07-14)
PROC: 0JB80ZZ Excision of Abdomen Subcutaneous Tissue and Fascia, Open Approach (ICD-10-PCS; 2024-07-18)
DX: A41.9 Sepsis, unspecified organism (principal); K31.6 Fistula of stomach and duodenum; G93.49 Other encephalopathy; L89.214 Pressure ulcer of right hip, stage 4; L89.224 Pressure ulcer of left hip, stage 4; E44.0 Moderate protein-calorie malnutrition; D68.59 Other primary thrombophilia; E87.0 Hyperosmolality and hypernatremia; L89.896 Pressure-induced deep tissue damage of other site; E87.20 Acidosis, unspecified; J15.9 Unspecified bacterial pneumonia; J96.10 Chronic respiratory failure, unspecified whether with hypoxia or hypercapnia; G40.909 Epilepsy, unspecified, not intractable, without status epilepticus; Z66 Do not resuscitate; G80.0 Spastic quadriplegic cerebral palsy; R13.10 Dysphagia, unspecified; M41.9 Scoliosis, unspecified; Z79.51 Long term (current) use of inhaled steroids; Z79.899 Other long term (current) drug therapy; N39.0 Urinary tract infection, site not specified; B96.89 Other specified bacterial agents as the cause of diseases classified elsewhere; D64.9 Anemia, unspecified; D75.839 Thrombocytosis, unspecified; Z74.09 Other reduced mobility; E88.09 Other disorders of plasma-protein metabolism, not elsewhere classified; E86.0 Dehydration; E87.6 Hypokalemia; I10 Essential (primary) hypertension; I96 Gangrene, not elsewhere classified; L30.9 Dermatitis, unspecified; Z87.39 Personal history of other diseases of the musculoskeletal system and connective tissue; N17.9 Acute kidney failure, unspecified; Z74.01 Bed confinement status; Z87.440 Personal history of urinary (tract) infections; K94.23 Gastrostomy malfunction; Y83.3 Surgical operation with formation of external stoma as the cause of abnormal reaction of the patient, or of later complication, without mention of misadventure at the time of the procedure; Y82.8 Other medical devices associated with adverse incidents; Y92.9 Unspecified place or not applicable; M24.551 Contracture, right hip
CPT/HCPCS: 31720; 36415; 36569; 71045-TC; 80048-TC; 80053-TC; 80076-TC; 80202-TC; 81001; 82533; 82962-TC; 83605-TC; 83735-TC; 83880; 84100-TC; 84478-TC; 84484-TC; 85025-TC; 85027-TC; 85730-TC; 86850-TC; 87040-TC; 87081-TC; 87086-TC; 94640-TC; 94664-TC; 94760-TC; 94762-TC; 94799-TC; A4216; A4217; A4223; A4623; A4624; A6253; A6403; A6407; A7526; A9563; G0378; J0153; J0692; J1450; J1644; J1720; J1815; J1885; J2060; J2185; J2270; J3010; J3360; J3370; J3371; J3475; J3480; J3490; J7030; J7040; J7050; J7060; J7070; P9016

== ENCOUNTER 2024-07-19 15:12 | Inpatient (IN) | payer OTHER ==
[~2024-07-19] VITALS: Ht 134.6 cm; Wt 28.1 kg
[~2024-07-19 15:12] MED LIST changes: -ACET-868 GT; +ACET650S26 GT; -ALBU2.5V38 IH; -ALLA266C2 TP; +AMIN30LI25 GT; -BISA10SU11 RC; +BLOO-668 IN; +CADE40GE2 TP; -CHOL200059 GT; -ERYT200S16 GT; -FAMO20TA8 PO; -GABA250S2 GT; +GABA300C GT; -GLYC2TAB21 GT; -GUAI100S11 GT; -GUAR205P3 GT; -HYDR-4303 GT; -IPRA0.2S49 IH; +LACT-96 GT; +LEVA0.6320 IH; -METO5TAB2 GT; -NUT.237L65 GT; +PANT40SU2 GT; -PETR113O TP; -PIPE3.379 IV; -SIME80TA15 GT; +SODI473S8 TP; +TRAM50TA2 GT
[2024-07-19 19:29] VITALS: O2SAT 98
[2024-07-19 19:32] VITALS: O2SAT 98
[2024-07-19] MEDS ORDERED: ALBUTEROL FS 2.5 MG/0.5 ML VIAL.NEB NEB PRN (19:43)
[2024-07-19] MEDS ORDERED: ACETAMINOPHEN 325 MG TABLET PO PRN (19:47)
[2024-07-19] MEDS ORDERED: LORAZEPAM INJ 2 MG/ML VIAL IV PRN (19:55)
[2024-07-19] MEDS ORDERED: DIAZEPAM 5 MG/ML 2 ML DISP.SYRIN IV SCH (19:55)
[2024-07-19] MEDS ORDERED: FAT EMULSION 20% 500 ML in PREMIX 1 EA IV SCH (19:55)
[2024-07-19] MEDS ORDERED: ONDANSETRON HCL/PF 4 MG/2 ML VIAL IVP PRN (19:55)
[2024-07-19] MEDS ORDERED: MORPHINE SULFATE INJ 4 MG/ML DISP.SYRIN IV PRN (19:55)
[2024-07-19] MEDS ORDERED: BISACODYL SUPP (10 MG) 10 MG/SUPP.RECT SUPP.RECT RC PRN (19:55)
[2024-07-19] MEDS ORDERED: IPRATROPIUM NEB FS 0.5 MG/2.5 ML AMPUL.NEB NEB PRN ×2 (20:00)
[2024-07-19 20:20] VITALS: O2SAT 100
[2024-07-19] MEDS: BUDESONIDE RESPULE INH 0.5 MG/2 ML AMPUL.NEB IH SCH (20:23)
[2024-07-19] MEDS ORDERED: hydrALAZINE HCL IV 20 MG VIAL IV PRN (20:30)
[2024-07-19 20:35] VITALS: O2SAT 99
[2024-07-19 21:10] VITALS: BP 104/81; TEMP 97.9; O2SAT 100
[2024-07-19] MEDS: POLYVINYL ALCOHOL 15 ML BOTTLE EACHEYE SCH (21:27)
[2024-07-20] VITALS (12 sets, daily range): BP systolic 133–136; BP diastolic 94–100; RESP 22; TEMP 99.3–99.9; O2SAT 96–100
[2024-07-20] MEDS: INSULIN REGULAR, HUMAN 100 UNIT/ML 3 ML VIAL SQ PRN (00:33)
[2024-07-20] MEDS: BLOOD SUGAR DIAGNOSTIC 1 EACH STRIP IN SCH (00:33)
[2024-07-20] MEDS: IPRATROPIUM NEB FS 0.5 MG/2.5 ML AMPUL.NEB NEB SCH (00:40)
[2024-07-20] MEDS: ALBUTEROL FS 2.5 MG/3 ML VIAL.NEB NEB SCH (00:40)
[2024-07-20] MEDS ORDERED: HYDROGEN PEROXIDE 480 ML BOTTLE TP PRN (07:00)
[2024-07-20] MEDS ORDERED: TUBERCULIN,PURIF.PROT.DERIV. 5 TU/0.1 ML DISP.SYRIN ID SCH (07:05)
[2024-07-20] MEDS ORDERED: TPN/PPN PER PHARMACY IV PRN (07:58)
[2024-07-20] MEDS: TPN #1 IV SCH (08:00)
[2024-07-20] MEDS ORDERED: DAKINS FULL STRENGTH (0.5%) 480 ML BOTTLE TOP PRN (08:30)
[2024-07-20] MEDS ORDERED: MORPHINE SULFATE INJ 2 MG/ML DISP.SYRIN IV PRN (08:30)
[2024-07-20] MEDS ORDERED: THERAHONEY GEL 1.5 OZ TUBE TP PRN (08:30)
[2024-07-20] MEDS ORDERED: CADEXOMER IODINE 40 GM TUBE TP PRN (08:30)
[2024-07-20] MEDS: ACETAMINOPHEN 650 MG/SUPP.RECT RC PRN (08:31)
[2024-07-20] MEDS: MORPHINE SULFATE INJ 2 MG/ML DISP.SYRIN IM PRN (08:57)
[2024-07-20] MEDS: CADEXOMER IODINE 40 GM TUBE TP SCH (09:00)
[2024-07-20] MEDS: DAKINS FULL STRENGTH (0.5%) 480 ML BOTTLE TOP SCH (09:00)
[2024-07-20] MEDS: Z GUARD REMEDY 4 OZ OINT TP SCH (09:00)
[2024-07-20] MEDS: THERAHONEY GEL 1.5 OZ TUBE TP SCH ×2 (09:00)
[2024-07-20] MEDS: HYDROGEN PEROXIDE 480 ML BOTTLE TP SCH (09:03)
[2024-07-20] MEDS ORDERED: DIAZEPAM 5 MG/ML 2 ML DISP.SYRIN IV SCH (12:34)
[2024-07-20] MEDS ORDERED: FAT EMULSION 20% 500 ML in PREMIX 1 EA IV SCH (14:00)
[2024-07-20] MEDS ORDERED: ACETAMINOPHEN 650 MG/SUPP.RECT RC PRN (14:00)
[2024-07-20 15:56] LABS: CALCIUM, SERUM 9.2 mg/dL (8.5-10.1); CREATININE 0.2 mg/dL (0.6-1.3); POTASSIUM 3.6 mmol/L (3.5-5.1)
[2024-07-21 16:26] LABS: CALCIUM, SERUM 8.8 mg/dL (8.5-10.1); CREATININE 0.4 mg/dL (0.6-1.3); MAGNESIUM 2.2 mg/dL (1.8-2.4); PHOSPHORUS 2.6 mg/dL (2.5-4.9); POTASSIUM 4.2 mmol/L (3.5-5.1)
[2024-07-21] MEDS ORDERED: TPN #2 IV SCH (23:37)
[2024-07-22 16:24] LABS: CALCIUM, SERUM 8.9 mg/dL (8.5-10.1); CREATININE 0.3 mg/dL (0.6-1.3); POTASSIUM 3.3 mmol/L (3.5-5.1)
[2024-07-23 08:26] LABS: CALCIUM, SERUM 9.5 mg/dL (8.5-10.1); CREATININE 0.3 mg/dL (0.6-1.3); POTASSIUM 3.4 mmol/L (3.5-5.1)
== END 2024-07-20 16:00 | disposition short-term general hospital (02) | DRG 133 ==
LOC: SA 15:12
PROVIDERS: ADMIT Internal Medicine; ATTEND Internal Medicine
DX: J96.10 Chronic respiratory failure, unspecified whether with hypoxia or hypercapnia (principal); R65.21 Severe sepsis with septic shock; A41.9 Sepsis, unspecified organism; G93.40 Encephalopathy, unspecified; L89.214 Pressure ulcer of right hip, stage 4; L89.224 Pressure ulcer of left hip, stage 4; E86.0 Dehydration; D64.9 Anemia, unspecified; R13.10 Dysphagia, unspecified; E87.0 Hyperosmolality and hypernatremia; E87.6 Hypokalemia; G40.909 Epilepsy, unspecified, not intractable, without status epilepticus; G80.0 Spastic quadriplegic cerebral palsy; I10 Essential (primary) hypertension; M24.551 Contracture, right hip; Z43.1 Encounter for attention to gastrostomy; Z87.440 Personal history of urinary (tract) infections
CPT/HCPCS: 31720; 36415; 80048-TC; 82962-TC; 83735-TC; 84100-TC; 94640-TC; 94760-TC; 94762-TC; 94799-TC; A4216; A4623; A6253; A7526; J1815; J2060; J2270; J3360

== ENCOUNTER 2024-07-20 16:58 | Inpatient (IN) | payer OTHER ==
[~2024-07-20] VITALS: Ht 137.2 cm; Wt 23.1 kg
[2024-07-20 17:22] LABS: EOSINOPHILS # (AUTO) 0.1 K/uL (0.0-0.7); EOSINOPHILS % (AUTO) 1.5 % (0.0-6.0); HEMATOCRIT 30 % (39-51); HEMOGLOBIN 10.3 g/dL (13.5-17.5); LYMPHOCYTES # (AUTO) 0.9 K/uL (0.8-4.8); LYMPHOCYTES % (AUTO) 18.1 % (20.0-44.0); MEAN CORPUSCULAR HEMOGLOBIN 31 PG (26.0-33.0); MEAN CORPUSCULAR HGB CONC 34 g/dl (31.0-36.0); MEAN CORPUSCULAR VOLUME 89 fL (80-96); MONOCYTES # (AUTO) 0.8 K/uL (0.1-1.30); MONOCYTES % (AUTO) 16.9 % (2.0-12.0); NEUTROPHILS # (AUTO) 3.1 K/uL (1.8-8.9); NEUTROPHILS % (AUTO) 62.5 % (43.0-81.0); PLATELET COUNT (AUTO) 370 K/uL (150-450); RED BLOOD CELL COUNT(AUTO) 3.36 MIL/uL (4.5-6.0); RED CELL DISTRIBUTION WIDTH 15.9 % (11.5-15.0); WHITE BLOOD COUNT (AUTO) 4.9 K/uL (4.3-11.0)
[2024-07-20 17:38] LABS: ALBUMIN 2.8 g/dL (3.4-5.0); BILIRUBIN,DIRECT 0.3 mg/dL (0.0-0.2); BILIRUBIN,TOTAL 0.7 mg/dL (0.2-1.0); CALCIUM, SERUM 9.8 mg/dL (8.5-10.1); CREATININE 0.3 mg/dL (0.6-1.3); POTASSIUM 3.3 mmol/L (3.5-5.1); TOTAL PROTEIN, SERUM 8.3 g/dL (6.4-8.2)
[2024-07-20 17:40] LABS: LACTIC ACID 0.8 mmol/L (0.4-2.0)
[2024-07-20 17:44] LABS: INR 1.22 (0.91-1.10); PARTIAL THROMBOPLASTIN TIME 31.4 SEC (24.3-34.3); PROTHROMBIN TIME 12.8 SECS (9.2-11.1)
[2024-07-20] MEDS: CEFEPIME 1 GM in IV D5W 50 ML IV ONE (17:50)
[2024-07-20] MEDS: IV NS 0.9% 1,000 ML BAG IV ONE (17:55)
[2024-07-20 18:39] LABS: LYMPHOCYTES % (MANUAL) 15 % (16-48); MONOCYTES % (MANUAL) 16 % (0-11.0); NEUTROPHILS % (MANUAL) 67 (42-76); PLATELET ESTIMATE ADEQUATE
[2024-07-20 18:40] LABS: EOSINOPHILS % (MANUAL) 2 % (0-4)
[2024-07-20 18:43] LABS: ANISOCYTOSIS 1+
[2024-07-20] MEDS: VANCOMYCIN 1 GM in IV D5W 250 ML IV ONE (19:15)
[2024-07-20 19:33] VITALS: O2SAT 100
[2024-07-20 20:17] LABS: APPEARANCE,URINE CLEAR (CLEAR); BILIRUBIN,URINE NEGATIVE (NEGATIVE); BLOOD, URINE 2+ Ery/uL (NEGATIVE); COLOR,URINE YELLOW (YELLOW); KETONES,URINE 2+ mg/dL (NEGATIVE); LEUKOCYTE ESTERASE ,URINE NEGATIVE (NEGATIVE); NITRITE, URINE NEGATIVE (NEGATIVE); PROTEIN,URINE 2+ mg/dl (NEGATIVE); UGLUCOSE NEGATIVE (NEGATIVE)
[2024-07-20 21:14] LABS: YEAST,URINE Moderate /HPF (None Seen)
[2024-07-20 21:16] LABS: ADD URINE CULTURE YES; BACTERIA,URINE Moderate /HPF (None Seen); MUCUS,URINE Moderate /LPF (None Seen); SQUAMOUS EPITHELIAL CELL,UR Few /HPF (None Seen)
[2024-07-20] MEDS ORDERED: LORAZEPAM ORAL SOLN 2 MG/ML ORAL.CONC GT PRN (22:30)
[2024-07-20] MEDS ORDERED: POLYETHYLENE GLYCOL 3350 17 GM POWD.PACK GT PRN (22:30)
[2024-07-20] MEDS ORDERED: ONDANSETRON HCL/PF 4 MG/2 ML VIAL IVP PRN (22:30)
[2024-07-20] MEDS ORDERED: MEROPENEM 500 MG VIAL IV SCH ×2 (22:30)
[2024-07-20] MEDS ORDERED: DIAZEPAM 2 MG TABLET GT PRN (22:30)
[2024-07-20] MEDS ORDERED: JEVITY 1.5 CAL LIQUID 1,000 ML BOTTLE GT SCH (22:30)
[2024-07-20] MEDS ORDERED: TRAMADOL HCL 50 MG TABLET GT PRN (22:30)
[2024-07-20] MEDS ORDERED: LEVALBUTEROL HCL NEB 1.25 MG/0.5 ML VIAL.NEB IH PRN (23:00)
[2024-07-20 23:17] VITALS: O2SAT 100
[2024-07-20] MEDS ORDERED: FLUCONAZOLE IN NS 100 ML IV ONE (23:23)
[2024-07-20] MEDS: MEROPENEM 500 MG in IV NS 0.9% 50 ML IV SCH (23:30)
[2024-07-21] VITALS (12 sets, daily range): BP systolic 126–133; BP diastolic 57–102; TEMP 97.7–99; O2SAT 95–100
[2024-07-21] MEDS: BLOOD SUGAR DIAGNOSTIC 1 EACH STRIP IN SCH (01:33)
[2024-07-21] MEDS: FLUCONAZOLE IN NS 100 MG in PREMIX 1 EA IV SCH (01:37)
[2024-07-21] MEDS: GABAPENTIN 300 MG CAPSULE GT SCH (05:00)
[2024-07-21] MEDS: BROMOCRIPTINE MESYLATE (2.5MG) 2.5 MG TABLET GT SCH (05:00)
[2024-07-21] MEDS: BACLOFEN (10 MG) 10 MG TABLET GT SCH (05:21)
[2024-07-21] MEDS ORDERED: TPN/PPN PER PHARMACY IV PRN (08:30)
[2024-07-21 08:52] LABS: BASOPHILS % (AUTO) 0.8 % (0.0-2.0); EOSINOPHILS # (AUTO) 0.1 K/uL (0.0-0.7); HEMATOCRIT 27 % (39-51); HEMOGLOBIN 9.1 g/dL (13.5-17.5); LYMPHOCYTES # (AUTO) 0.9 K/uL (0.8-4.8); LYMPHOCYTES % (AUTO) 22.9 % (20.0-44.0); MEAN CORPUSCULAR HEMOGLOBIN 30 PG (26.0-33.0); MEAN CORPUSCULAR HGB CONC 34 g/dl (31.0-36.0); MEAN CORPUSCULAR VOLUME 90 fL (80-96); MONOCYTES # (AUTO) 0.6 K/uL (0.1-1.30); MONOCYTES % (AUTO) 16.1 % (2.0-12.0); NEUTROPHILS # (AUTO) 2.2 K/uL (1.8-8.9); NEUTROPHILS % (AUTO) 57.2 % (43.0-81.0); PLATELET COUNT (AUTO) 335 K/uL (150-450); RED BLOOD CELL COUNT(AUTO) 3.03 MIL/uL (4.5-6.0); RED CELL DISTRIBUTION WIDTH 15.2 % (11.5-15.0); WHITE BLOOD COUNT (AUTO) 3.8 K/uL (4.3-11.0)
[2024-07-21] MEDS ORDERED: PANTOPRAZOLE 40 MG/PACK PACK GT SCH (09:00)
[2024-07-21] MEDS: PROPRANOLOL HCL 10 MG TABLET GT SCH (09:00)
[2024-07-21] MEDS: ARGININE/GLUTAMINE/CALCIUM BMB 1 EACH POWD.PACK GT SCH (09:00)
[2024-07-21] MEDS: MULTIVIT W/MINERALS 1 TAB TABLET GT SCH (09:00)
[2024-07-21] MEDS: TAMSULOSIN 0.4 MG CAP.SR.24H GT SCH (09:00)
[2024-07-21] MEDS: ACIDOPHILUS/BULGARICUS 1 EACH TAB.CHEW GT SCH (09:00)
[2024-07-21] MEDS: PROSOURCE / PROSTAT (PYXIS) 30 ML UDC GT SCH (09:00)
[2024-07-21] MEDS: ASCORBIC ACID 500 MG TABLET GT SCH (09:00)
[2024-07-21] MEDS: INDOMETHACIN 25 MG CAPSULE GT SCH (09:00)
[2024-07-21] MEDS: BUDESONIDE RESPULE INH 0.5 MG/2 ML AMPUL.NEB IH SCH (09:00)
[2024-07-21] MEDS: CLONIDINE HCL 0.1 MG TABLET PO SCH (09:00)
[2024-07-21] MEDS: PANTOPRAZOLE 40 MG VIAL IV SCH (09:33)
[2024-07-21] MEDS: POLYVINYL ALCOHOL 15 ML BOTTLE EACHEYE SCH (09:34)
[2024-07-21] MEDS: DAKINS QUARTER STRENGTH (0.125%) 480 ML BOTTLE TOP SCH (09:43)
[2024-07-21] MEDS: CADEXOMER IODINE 40 GM TUBE TP SCH (09:43)
[2024-07-21] MEDS: THERAHONEY GEL 1.5 OZ TUBE TP SCH (09:43)
[2024-07-21 09:45] LABS: ALBUMIN 2.5 g/dL (3.4-5.0); BILIRUBIN,TOTAL 0.6 mg/dL (0.2-1.0); CALCIUM, SERUM 9.3 mg/dL (8.5-10.1); CREATININE 0.3 mg/dL (0.6-1.3); MAGNESIUM 1.6 mg/dL (1.8-2.4); PHOSPHORUS 3.2 mg/dL (2.5-4.9); TOTAL PROTEIN, SERUM 7.4 g/dL (6.4-8.2)
[2024-07-21] MEDS: Magnesium 1GM/D5W 100ML PREMIX 100 ML IV SCH (11:00)
[2024-07-21] MEDS: POTASSIUM CL. PREMIX PERIPHER. 50 ML IV SCH (11:00)
[2024-07-21] MEDS: FAT EMULSION 20% 500 ML in PREMIX 1 EA IV SCH (13:55)
[2024-07-21] MEDS: CLONIDINE HCL 0.1 MG TABLET GT SCH (21:52)
[2024-07-21] MEDS: ZINC SULFATE 220 MG CAPSULE GT SCH (21:53)
[2024-07-21] MEDS: TPN BAG #1 IV SCH (21:58)
[2024-07-22] VITALS (15 sets, daily range): BP systolic 109–138; BP diastolic 73–100; TEMP 98.1–99.1; O2SAT 97–100
[2024-07-22] MEDS: FLUCONAZOLE IN NS 100 MG in PREMIX 1 EA IV SCH (01:24)
[2024-07-22 07:27] LABS: MAGNESIUM 1.7 mg/dL (1.8-2.4); PHOSPHORUS 3.1 mg/dL (2.5-4.9)
[2024-07-22] MEDS ORDERED: FLUC100P4 IV (11:05)
[2024-07-22 11:24] LABS: CREATININE 0.3 mg/dL (0.6-1.3); POTASSIUM 3.6 mmol/L (3.5-5.1)
[2024-07-22] MEDS: Magnesium 1GM/D5W 100ML PREMIX 100 ML IV SCH (12:25)
[2024-07-23] VITALS (13 sets, daily range): BP systolic 106–134; BP diastolic 88–93; TEMP 98.2–99.6; O2SAT 97–100
[2024-07-23 08:38] LABS: PHOSPHORUS 4.7 mg/dL (2.5-4.9)
[2024-07-23 08:56] LABS: CALCIUM, SERUM 9.4 mg/dL (8.5-10.1); CREATININE 0.3 mg/dL (0.6-1.3); POTASSIUM 3.5 mmol/L (3.5-5.1)
[2024-07-23] MEDS: TPN BAG #2 IV SCH (13:34)
[2024-07-23] MEDS: CLONIDINE HCL 0.3 MG/24H PTWK 1 EA PATCH TD SCH (15:43)
[2024-07-23] MEDS: ACETAMINOPHEN 650 MG/SUPP.RECT RC PRN (16:03)
[2024-07-23] MEDS: Magnesium 1GM/D5W 100ML PREMIX 100 ML IV SCH (21:01)
[2024-07-23] MEDS: POTASSIUM CL. PREMIX PERIPHER. 50 ML IV SCH (21:46)
[2024-07-24] VITALS (13 sets, daily range): BP systolic 98–132; BP diastolic 74–96; TEMP 97.9–98.8; O2SAT 96–100
[2024-07-24 08:40] LABS: BASOPHILS % (AUTO) 1.3 % (0.0-2.0); EOSINOPHILS # (AUTO) 0.1 K/uL (0.0-0.7); EOSINOPHILS % (AUTO) 2.7 % (0.0-6.0); HEMATOCRIT 29 % (39-51); LYMPHOCYTES % (AUTO) 26.6 % (20.0-44.0); MEAN CORPUSCULAR HEMOGLOBIN 30 PG (26.0-33.0); MEAN CORPUSCULAR HGB CONC 34 g/dl (31.0-36.0); MEAN CORPUSCULAR VOLUME 88 fL (80-96); MONOCYTES # (AUTO) 0.5 K/uL (0.1-1.30); MONOCYTES % (AUTO) 13.6 % (2.0-12.0); NEUTROPHILS # (AUTO) 2.1 K/uL (1.8-8.9); NEUTROPHILS % (AUTO) 55.8 % (43.0-81.0); PLATELET COUNT (AUTO) 488 K/uL (150-450); RED BLOOD CELL COUNT(AUTO) 3.32 MIL/uL (4.5-6.0); RED CELL DISTRIBUTION WIDTH 15.6 % (11.5-15.0); WHITE BLOOD COUNT (AUTO) 3.8 K/uL (4.3-11.0)
[2024-07-24 08:56] LABS: CALCIUM, SERUM 9.4 mg/dL (8.5-10.1); CREATININE 0.3 mg/dL (0.6-1.3); PHOSPHORUS 4.5 mg/dL (2.5-4.9); POTASSIUM 3.6 mmol/L (3.5-5.1)
[2024-07-24] MEDS ORDERED: MICAFUNGIN SODIUM 100 MG VIAL IV ONE (22:51)
[2024-07-24] MEDS: MICAFUNGIN SODIUM 100 MG in IV NS 0.9% 100 ML IV SCH (23:49)
[2024-07-25] VITALS (14 sets, daily range): BP systolic 93–109; BP diastolic 64–81; TEMP 97.4–98.2; O2SAT 98–100
[2024-07-25] MEDS: TPN BAG #3 IV SCH (05:17)
[2024-07-25] MEDS ORDERED: TPN BAG #3 IV SCH (05:30)
[2024-07-25 07:16] LABS: MAGNESIUM 1.7 mg/dL (1.8-2.4); PHOSPHORUS 4.9 mg/dL (2.5-4.9)
[2024-07-25 08:03] LABS: CALCIUM, SERUM 9.2 mg/dL (8.5-10.1); CREATININE 0.3 mg/dL (0.6-1.3); POTASSIUM 3.5 mmol/L (3.5-5.1)
[2024-07-25] MEDS: Magnesium 1GM/D5W 100ML PREMIX 100 ML IV SCH (08:46)
[2024-07-26] VITALS (14 sets, daily range): BP systolic 100–126; BP diastolic 74–91; TEMP 97.3–98.6; O2SAT 97–100
[2024-07-26] MEDS: TPN BAG #4 IV SCH (02:19)
[2024-07-26 08:00] LABS: MAGNESIUM 1.8 mg/dL (1.8-2.4); PHOSPHORUS 4.4 mg/dL (2.5-4.9)
[2024-07-26 09:03] LABS: CALCIUM, SERUM 9.8 mg/dL (8.5-10.1); CREATININE 0.4 mg/dL (0.6-1.3); POTASSIUM 3.6 mmol/L (3.5-5.1)
[2024-07-26] MEDS: TPN BAG #5 IV SCH (22:14)
[2024-07-27] VITALS (17 sets, daily range): BP systolic 102–115; BP diastolic 61–86; TEMP 98–99; O2SAT 95–100
[2024-07-27 07:19] LABS: CREATININE 0.3 mg/dL (0.6-1.3); MAGNESIUM 1.6 mg/dL (1.8-2.4); PHOSPHORUS 4.4 mg/dL (2.5-4.9); POTASSIUM 3.5 mmol/L (3.5-5.1)
[2024-07-27] MEDS: ACETAMINOPHEN 650 MG/20.3 ML UDC GT PRN (09:19)
[2024-07-27 10:13] LABS: BASOPHILS # (AUTO) 0.1 K/uL (0.0-0.2); BASOPHILS % (AUTO) 1.4 % (0.0-2.0); EOSINOPHILS # (AUTO) 0.1 K/uL (0.0-0.7); EOSINOPHILS % (AUTO) 2.2 % (0.0-6.0); HEMATOCRIT 31 % (39-51); HEMOGLOBIN 10.4 g/dL (13.5-17.5); LYMPHOCYTES # (AUTO) 0.8 K/uL (0.8-4.8); LYMPHOCYTES % (AUTO) 17.2 % (20.0-44.0); MEAN CORPUSCULAR HEMOGLOBIN 30 PG (26.0-33.0); MEAN CORPUSCULAR HGB CONC 34 g/dl (31.0-36.0); MEAN CORPUSCULAR VOLUME 88 fL (80-96); MONOCYTES # (AUTO) 0.5 K/uL (0.1-1.30); MONOCYTES % (AUTO) 10.6 % (2.0-12.0); NEUTROPHILS # (AUTO) 3.1 K/uL (1.8-8.9); NEUTROPHILS % (AUTO) 68.6 % (43.0-81.0); PLATELET COUNT (AUTO) 550 K/uL (150-450); RED CELL DISTRIBUTION WIDTH 15.9 % (11.5-15.0); WHITE BLOOD COUNT (AUTO) 4.6 K/uL (4.3-11.0)
[2024-07-27] MEDS: Magnesium 1GM/D5W 100ML PREMIX 100 ML IV SCH (12:44)
[2024-07-28] VITALS (14 sets, daily range): BP systolic 109–127; BP diastolic 73–98; TEMP 97.9–99.1; O2SAT 94–100
[2024-07-28 07:32] LABS: BASOPHILS # (AUTO) 0.1 K/uL (0.0-0.2); BASOPHILS % (AUTO) 1.3 % (0.0-2.0); EOSINOPHILS # (AUTO) 0.1 K/uL (0.0-0.7); EOSINOPHILS % (AUTO) 3.5 % (0.0-6.0); HEMATOCRIT 29 % (39-51); HEMOGLOBIN 9.6 g/dL (13.5-17.5); LYMPHOCYTES # (AUTO) 0.7 K/uL (0.8-4.8); LYMPHOCYTES % (AUTO) 15.7 % (20.0-44.0); MEAN CORPUSCULAR HEMOGLOBIN 30 PG (26.0-33.0); MEAN CORPUSCULAR HGB CONC 34 g/dl (31.0-36.0); MEAN CORPUSCULAR VOLUME 88 fL (80-96); MONOCYTES # (AUTO) 0.4 K/uL (0.1-1.30); MONOCYTES % (AUTO) 10.3 % (2.0-12.0); NEUTROPHILS # (AUTO) 2.9 K/uL (1.8-8.9); NEUTROPHILS % (AUTO) 69.2 % (43.0-81.0); PLATELET COUNT (AUTO) 499 K/uL (150-450); RED BLOOD CELL COUNT(AUTO) 3.25 MIL/uL (4.5-6.0); RED CELL DISTRIBUTION WIDTH 15.7 % (11.5-15.0); WHITE BLOOD COUNT (AUTO) 4.2 K/uL (4.3-11.0)
[2024-07-28 08:06] LABS: CALCIUM, SERUM 9.4 mg/dL (8.5-10.1); CREATININE 0.3 mg/dL (0.6-1.3); MAGNESIUM 1.7 mg/dL (1.8-2.4); PHOSPHORUS 3.9 mg/dL (2.5-4.9); POTASSIUM 2.9 mmol/L (3.5-5.1)
[2024-07-28] MEDS: Magnesium 1GM/D5W 100ML PREMIX 100 ML IV SCH (12:31)
[2024-07-28] MEDS: POTASSIUM CL. PREMIX PERIPHER. 50 ML IV SCH (12:31)
[2024-07-28] MEDS: TPN BAG #6 IV SCH (13:52)
[2024-07-29] VITALS (14 sets, daily range): BP systolic 101–125; BP diastolic 74–90; TEMP 97.9–99; O2SAT 96–100
[2024-07-29 07:55] LABS: BASOPHILS # (AUTO) 0.1 K/uL (0.0-0.2); BASOPHILS % (AUTO) 1.2 % (0.0-2.0); EOSINOPHILS # (AUTO) 0.1 K/uL (0.0-0.7); EOSINOPHILS % (AUTO) 1.7 % (0.0-6.0); HEMATOCRIT 28 % (39-51); HEMOGLOBIN 9.4 g/dL (13.5-17.5); LYMPHOCYTES # (AUTO) 1.1 K/uL (0.8-4.8); LYMPHOCYTES % (AUTO) 16.9 % (20.0-44.0); MEAN CORPUSCULAR HEMOGLOBIN 29 PG (26.0-33.0); MEAN CORPUSCULAR HGB CONC 34 g/dl (31.0-36.0); MEAN CORPUSCULAR VOLUME 86 fL (80-96); MONOCYTES # (AUTO) 0.5 K/uL (0.1-1.30); NEUTROPHILS # (AUTO) 4.5 K/uL (1.8-8.9); NEUTROPHILS % (AUTO) 72.2 % (43.0-81.0); PLATELET COUNT (AUTO) 535 K/uL (150-450); RED BLOOD CELL COUNT(AUTO) 3.23 MIL/uL (4.5-6.0); RED CELL DISTRIBUTION WIDTH 15.8 % (11.5-15.0); WHITE BLOOD COUNT (AUTO) 6.3 K/uL (4.3-11.0)
[2024-07-29 08:37] LABS: CALCIUM, SERUM 10.1 mg/dL (8.5-10.1); CREATININE 0.3 mg/dL (0.6-1.3); POTASSIUM 3.9 mmol/L (3.5-5.1)
[2024-07-29 08:45] LABS: MAGNESIUM 1.9 mg/dL (1.8-2.4); PHOSPHORUS 4.5 mg/dL (2.5-4.9)
[2024-07-30] VITALS (11 sets, daily range): BP systolic 99–125; BP diastolic 63–97; TEMP 97.9–98.8; O2SAT 96–100
[2024-07-30] MEDS: TPN BAG #7 IV SCH (06:17)
[2024-07-30 08:06] LABS: BASOPHILS % (AUTO) 0.6 % (0.0-2.0); EOSINOPHILS # (AUTO) 0.1 K/uL (0.0-0.7); EOSINOPHILS % (AUTO) 2.2 % (0.0-6.0); HEMATOCRIT 28 % (39-51); HEMOGLOBIN 9.9 g/dL (13.5-17.5); LYMPHOCYTES % (AUTO) 14.9 % (20.0-44.0); MEAN CORPUSCULAR HEMOGLOBIN 30 PG (26.0-33.0); MEAN CORPUSCULAR HGB CONC 35 g/dl (31.0-36.0); MEAN CORPUSCULAR VOLUME 87 fL (80-96); MONOCYTES # (AUTO) 0.6 K/uL (0.1-1.30); MONOCYTES % (AUTO) 8.7 % (2.0-12.0); NEUTROPHILS # (AUTO) 4.8 K/uL (1.8-8.9); NEUTROPHILS % (AUTO) 73.6 % (43.0-81.0); PLATELET COUNT (AUTO) 476 K/uL (150-450); RED BLOOD CELL COUNT(AUTO) 3.25 MIL/uL (4.5-6.0); WHITE BLOOD COUNT (AUTO) 6.5 K/uL (4.3-11.0)
[2024-07-30 08:12] LABS: CALCIUM, SERUM 9.5 mg/dL (8.5-10.1); CREATININE 0.3 mg/dL (0.6-1.3); MAGNESIUM 1.8 mg/dL (1.8-2.4); PHOSPHORUS 3.8 mg/dL (2.5-4.9); POTASSIUM 3.3 mmol/L (3.5-5.1)
[2024-07-30] MEDS: POTASSIUM CL. PREMIX PERIPHER. 50 ML IV SCH (08:51)
[2024-07-30] MEDS ORDERED: SODI473S8 TOP (13:46)
[2024-07-30] MEDS ORDERED: ACET-2605 IV (13:46)
[2024-07-30] MEDS ORDERED: CLON0.3P TD (13:46)
[2024-07-30] MEDS ORDERED: ACET650S11 RC (13:46)
[2024-07-30] MEDS ORDERED: COLL30OI TP (13:46)
[2024-07-30] MEDS: IV NS 0.9% 500 ML IV ONE (15:38)
[2024-07-30] MEDS ORDERED: Magnesium 1GM/D5W 100ML PREMIX 100 ML IV SCH (21:00)
[2024-07-30] MEDS ORDERED: TPN BAG #8 IV SCH (22:00)
== END 2024-07-30 16:20 | DRG 710 ==
LOC: ER 17:05 → TELE1 20:37 → TELE-TD 07-21 01:18 → TELE1 07-21 09:29
PROVIDERS: ADMIT Internal Medicine; ATTEND Internal Medicine
PROC: 0KBP0ZZ Excision of Left Hip Muscle, Open Approach (ICD-10-PCS; principal; 2024-07-22)
PROC: 0KBN0ZZ Excision of Right Hip Muscle, Open Approach (ICD-10-PCS; 2024-07-22)
PROC: 0KBP0ZZ Excision of Left Hip Muscle, Open Approach (ICD-10-PCS; 2024-07-27)
PROC: 0KBN0ZZ Excision of Right Hip Muscle, Open Approach (ICD-10-PCS; 2024-07-27)
DX: A41.9 Sepsis, unspecified organism (principal); G93.40 Encephalopathy, unspecified; K31.6 Fistula of stomach and duodenum; L89.214 Pressure ulcer of right hip, stage 4; E44.0 Moderate protein-calorie malnutrition; L89.224 Pressure ulcer of left hip, stage 4; D68.59 Other primary thrombophilia; E87.20 Acidosis, unspecified; N17.9 Acute kidney failure, unspecified; I96 Gangrene, not elsewhere classified; G80.0 Spastic quadriplegic cerebral palsy; B37.49 Other urogenital candidiasis; M24.551 Contracture, right hip; L30.8 Other specified dermatitis; Z66 Do not resuscitate; Z74.01 Bed confinement status; B96.89 Other specified bacterial agents as the cause of diseases classified elsewhere; Z68.1 Body mass index [BMI] 19.9 or less, adult; R79.89 Other specified abnormal findings of blood chemistry; M24.552 Contracture, left hip; S00.431A Contusion of right ear, initial encounter; X58.XXXA Exposure to other specified factors, initial encounter; Y92.230 Patient room in hospital as the place of occurrence of the external cause; R13.10 Dysphagia, unspecified; D75.839 Thrombocytosis, unspecified; M41.44 Neuromuscular scoliosis, thoracic region; Z79.899 Other long term (current) drug therapy; E86.0 Dehydration; E88.09 Other disorders of plasma-protein metabolism, not elsewhere classified; G40.909 Epilepsy, unspecified, not intractable, without status epilepticus; E87.6 Hypokalemia; E87.1 Hypo-osmolality and hyponatremia; J96.10 Chronic respiratory failure, unspecified whether with hypoxia or hypercapnia; I10 Essential (primary) hypertension; J18.9 Pneumonia, unspecified organism; Y95 Nosocomial condition; D63.8 Anemia in other chronic diseases classified elsewhere; R00.0 Tachycardia, unspecified
CPT/HCPCS: 31720; 36415; 71045-TC; 80048-TC; 80053-TC; 80076-TC; 81001; 82962-TC; 83605-TC; 83735-TC; 84100-TC; 84478-TC; 85025-TC; 85730-TC; 87040-TC; 87081-TC; 87086-TC; 94640-TC; 94760-TC; 94762-TC; 94799-TC; 99082-TC; A4216; A4223; A4623; A6253; A6403; A7526; G0378; J0692; J1450; J2185; J2248; J2470; J3370; J3475; J3480; J7030; J7040; J7050; J7060

== ENCOUNTER 2024-09-09 08:00 | Day surgery (SDC) | payer OTHER ==
[~2024-09-09 08:00] MED LIST changes: +ACET-2605 IV; +ACET650S11 RC; +CLON0.3P TD; +COLL30OI TP; -MERO500V23 IV; +SODI473S8 TOP
== END 2024-09-09 18:00 | disposition still patient (30) ==
LOC: DS 08:00
PROVIDERS: ATTEND Internal Medicine Gastroenterology
DX: R13.10 Dysphagia, unspecified (principal); K29.70 Gastritis, unspecified, without bleeding; I10 Essential (primary) hypertension; Z87.440 Personal history of urinary (tract) infections; Z79.899 Other long term (current) drug therapy; Z98.890 Other specified postprocedural states
CPT/HCPCS: 43246; J7030; J7120